=== PATIENT | female | born 1945 | race Caucasian/White ===

== ENCOUNTER 2019-04-29 16:10 | Inpatient (IN) | payer MEDICARE, MEDICAID ==
[2019-04-29] MEDS ORDERED: ARICEPT10 M1 PO (17:00)
[2019-04-29] MEDS ORDERED: MULTIVITAMINS1 EAC5 PO (17:01)
[2019-04-29] MEDS ORDERED: REMERON30 M1 PO (17:02)
[2019-04-29] MEDS ORDERED: MINIPRESS1 MG PO (17:02)
[2019-04-29] MEDS ORDERED: ATENOLOL25 MG PO (17:03)
[2019-04-29] MEDS ORDERED: ELIQUIS5 M1 PO (17:06)
[2019-04-29] MEDS ORDERED: AMARYL2 MG PO (17:08)
[2019-04-29] MEDS ORDERED: LACTULOSE20 GM/30 M PO (17:10)
[2019-04-29] MEDS ORDERED: METFORMIN HYDR500 MG PO (17:11)
[2019-04-29] MEDS ORDERED: DEPAKOTE SPRIN125 MG PO (17:13)
[2019-04-29] MEDS ORDERED: SENNA8.6 MG PO (17:13)
--- NOTE | 2019-04-30 02:15 | NUR ---
GORDONERIS AG a 73 year old F admitted via stretcher from the ADMITTING as a voluntary admission. Arrived on unit at 0215. ALLERGIES: IODINE,BUSPAR,SULFA,HONEY. Vital signs are: [id number] 129/61. The client signed the following forms with stated understanding: Authorization For The Release of Medical Information, Clothing List, Consent to Voluntary Admission and Hospitalization, Consent and Release Forms/Receipt of Rights, Acknowledgement of Advance Directive Information, Behavioral Health Consent Form, and Informed Consent of Medications. Admitted under the services of Dr. OPHELIA BARBER,[facility]. A search was conducted and hazardous articles were removed. Client was oriented to the unit. Patient has ecchymotic area to lt buttock and abrasion to lt outer leg. aware. SHAMIKA VALLEJO
[2019-04-30 02:22] VITALS: BP 129/61
--- NOTE | 2019-04-30 02:31 | NUR ---
DR GAONA UPDATED AND PATIENT PLACED UNDER DR CARTER FOR MEDICAL MANAGEMENT
--- NOTE | 2019-04-30 02:50 | NUR ---
DR GRISSOM ON UNIT TO SEE PATIENT
[2019-04-30 03:43] VITALS: BP 129/61
--- NOTE | 2019-04-30 06:33 | NUR ---
Patient slept approx. 1 1/2 hours throughout shift. Q 15 minute safety checks continued and maintained.
[2019-04-30 07:19] LABS: BUN 18 mg/dl (7-24); CHLORIDE 106 mmol/L (98-107); CHOLESTEROL 146 mg/dL (<200); CREATININE 0.91 mg/dL (0.55-1.02); HDL CHOLESTEROL 27 mg/dl (40-60); LDL CHOLESTEROL 100 mg/dL (9-159); POTASSIUM 3.6 mmol/L (3.5-5.1); SGOT/AST 14 IU/L (3-35); SGPT/ALT 11 U/L (12-78); SODIUM 138 mmol/L (136-145); TOTAL PROTEIN 7.3 gm/dL (6.4-8.2); TRIGLYCERIDES 96 mg/dl (<150); VLDL CHOLESTEROL 19 mg/dL (6-40)
[2019-04-30 07:26] LABS: ALKALINE PHOSPHATASE 50 U/L (45-117); THYROID STIM HORMONE (HS) 0.988 uIU/ml (0.358-4.75)
[2019-04-30 07:33] LABS: VITAMIN D, 25-HYDROXY 37.2 ng/mL (30-100)
[2019-04-30 07:39] LABS: ACT PARTIAL THROMBO TIME 28.7 SECONDS (20.0-32.1)
[2019-04-30 08:32] VITALS: BP 113/66
--- NOTE | 2019-04-30 11:55 | NUR ---
AM/EXERCISE/REMINISCE/ART PT ATTENDED AND PARTICIPATED TO BEST OF ABILITY. PT TRIED TO COLOR BUT STATES "I JUST CAN'T GET INTO LIKE I USED TO". PT DID NOT EXPRESS ANY S.I. AT THIS TIME AND WILL CONTINUE TO ATTEND AN DPARTICIPATE TO BEST OF PT ABILITY IN FUTURE GROUP SESSIONS.
--- NOTE | 2019-04-30 12:45 | NUR ---
JANA MCGREGOR UPDATED ON PT ADMISSION STATUS.
--- NOTE | 2019-04-30 13:03 | NUR ---
psychosocial hx completed this date.
--- NOTE | 2019-04-30 16:00 | NUR ---
PM/GAMES/MUSIC PT ATTENDED AND PARTICIPATED IN GROUP. PT PLEASNAT AND ON TASK BUT EXPRESSING CONFUSION WHEN RECORDING GAME SCORE. PT DID NOT EXPRESS ANY S.I AT THIS TIME AND WILL CONTINUE TO ATTEND AND PARTICIPATE IN FUTURE RGOUP SESSIONS.
--- NOTE | 2019-04-30 16:19 | NUR ---
SOME INTERMITTENT CONFUSION. PT ALERT, ORIENTED TO PERSON, PLACE AND APPROXIMATE TO TIME. PT COULD NOT REMEMBER WHEN IN IT WAS, BUT COULD ACCURATELY STATE YEAR AND PRESIDENT. REORIENTED. PT DENIES SI/HI. RECEPTIVE TO ORIENTATION, STATING "WOW, IT IS HARD TO BELIEVE IT IS THE END OF ALREADY. TIME FLIES". WILL CONTINUE TO REORIENT APPROPRIATE. WILL CONTINUE TO ENCOURAGE PARTICIPATION IN GROUP THERAPY/ACTIVITY FOR SOCIALIZATION AND SUPPORT. Q15 MIN MONITORING PER POLICY.
[2019-04-30 19:53] VITALS: BP 113/70
--- NOTE | 2019-04-30 23:47 | NUR ---
P-CONFUSION I-REDIRECTION WITH 1:1 THERAPEUTIC INTERVENTIONS AND PRESENT REALITY. EDUCATE AND ENCOURAGE MEDICATION COMPLIANCE R-PATIENT TIRED AND ISOLATED IN ROOM. PATIENT PROVIDED FLUIDS AT HS, BUT REFUSED NOURISHMENT AT HS. PATIENT DENIES SUCIDAL AND HOMICIDAL IDEATIONS. PATIENT DENIES HALLUINATIONS OR DELUSIONS. PATIENT MEDICATION COMPLIANT P-CONTINUE TO ENCOURAGE MEDICATION COMPLIANCE, CONTINUE TO PRESENT REALITY, CONTINUE TO ENCOURAGE GROUP THERAPY WHILE AWAKE
--- NOTE | 2019-05-01 00:44 | NUR ---
24 HR chart check completed.
--- NOTE | 2019-05-01 06:14 | NUR ---
PATIENT ACCUCHECK RESULT OF 53 THIS AM. PATIENT RECHECKED WITH ACCUCHECK RESULT OF 63 AFTER ORANGE JUICE. PATIENT WITH NO SIGNS OF SYMPTOMS OF DIABETIC IMBALANCE. PATIENT ATE A HALF OF TURKEY SANDWICH AND ACCU CHECK RESULT OF 77. DR OKEEFE UPDATED AND DIABETIC MEDICATIONS REVIEWED
--- NOTE | 2019-05-01 06:31 | NUR ---
PATIENT SLEPT 5 HOURS OF INTERRUPTED SLEEP THROUGHOUT SHIFT. Q 15 MINUTE CHECKS MAINTAINED
[2019-05-01 08:09] VITALS: BP 119/56
--- NOTE | 2019-05-01 09:54 | NUR ---
DR. UGARTE ON UNIT TO ASSESS PATIENT.
--- NOTE | 2019-05-01 12:14 | NUR ---
AM/BRAIN GAMES/MUSIC PT ATTENDED AND PARTICIPATED IN MUSIC [employer] BUT DID NOT PARTICIPATE IN BRAIN GAME. PT PLEASANT WITH NO S.I. OR AGGRESSION EXPRESSED AT THIS TIME. PT WILL CONTINUE TO ATTEND AND PARTICIPATE TO BEST OF ABILITY.
[2019-05-01 14:45] LABS: BILIRUBIN NEGATIVE (NEGATIVE); BLOOD NEGATIVE (NEGATIVE); CLARITY CLEAR (CLEAR); COLOR YELLOW (YELLOW); GLUCOSE NEGATIVE (NEGATIVE); KETONE NEGATIVE (NEGATIVE); LEUKO ESTERASE TRACE (NEGATIVE); NITRITE NEGATIVE (NEGATIVE); UROBILINOGEN 0.2 E.U./dl (0.2-1.0)
--- NOTE | 2019-05-01 16:03 | NUR ---
PATIENT IS ALERT AND ORIENT TO PERSON, PLACE, TIME AND SITUATION; ABLE TO VOICE NEEDS. MOOD IS STABLE, PLEASANT DEMEANOR. DENIES ANY HALLUCINATIONS, DELUSIONS, HI/SI OR PAIN. NO RESPONSE TO INTERNALS STIMULI. 1 PERSON ASSIST WITH ACTIVITIES OF DAILY LIVING, CONTINENT OF BOWEL AND BLADDER, SET UP FOR MEALS, INTAKES ARE GOOD WITH ENCOURAGEMENT TO DRINK MORE FLUIDS. Q 15 MINUTE SAFETY CHECKS. MEDICATION COMPLIANT. AMBULATES IN HALLWAY WITH STAFF ASSISTANCE, STEADY GAIT NOTED. CONTINUE TO MONITOR MOOD AND VOICED THOUGHT OF SUICIDAL IDEATION. PROVIDE ONE ON ONE FOR EMOTIONAL SUPPORT NEEDED.
--- NOTE | 2019-05-01 16:17 | NUR ---
Shift chart check completed.
[2019-05-01 19:33] VITALS: BP 143/55
--- NOTE | 2019-05-01 22:54 | NUR ---
PLEASENTLY CONFUSED. DIDN'T REMEMBER IF SHE NEEDED HELP TOILETING AND DRESSING. TOILETED AND CHANGED FOR BED. MEDICATION COMPLIANT AFTER REVIEWING MEDICATIONS WITH HER. ASSIST OF 1 TO GET OUT OF WHEELCHAIR INTO BED AND ONTO TOILET. WILL MONITOR FOR CHANGES IN BEHAVIOR OR MOOD
--- NOTE | 2019-05-01 23:45 | NUR ---
SHORT TERM MEMORY DEFICITS NOTED. HAS RUNG OUT 3 TIMES IN THE LAST 25 MINUTES TO VOID. SHE JUST VOID LARGE AMOUNT 25 MINUTES AGO. THINKS SHE WAS GIVEN OVERDOSE OF INSULIN THAT IS MAKING HER VOID. REIFORCED SHE GOT NOT INSULIN TONIGHT. WILL CONTINUE TO MONITOR
--- NOTE | 2019-05-02 04:29 | NUR ---
24 HR chart check completed.
--- NOTE | 2019-05-02 04:30 | NUR ---
INTERUPTED SLEEP. PREOCCUPITED WITH TOILETING. CONTINUEING TO PROVIDE EMOTIONAL SUPPORT
--- NOTE | 2019-05-02 06:00 | NUR ---
CURRENTLY UP SLEEPING IN WHEELCHAIR IN DININGROOM.
[2019-05-02 07:09] LABS: HEMATOCRIT 37.5 % (37.0-47.0); HEMOGLOBIN 11.9 g/dl (12.0-16.0); MEAN CELL VOLUME 110.9 fl (81.0-99.0); MEAN CORPUSCULAR HGB 35.2 pg (27.0-31.0); MEAN CORPUSCULAR HGB CONC 31.7 g/dl (33.0-37.0); MEAN PLATELET VOLUME 12.9 fl (9.6-12.3); NUCLEATED RED BLOOD CELL 0.1 % (0.0-0.0); PLATELET COUNT AUTOMATED 94 10*3/uL (130-400); RED BLOOD COUNT 3.38 10*6/uL (4.10-5.10); RED CELL DISTRI WIDTH 16.9 % (0-14.5); WHITE BLOOD COUNT 26.9 10*3/uL (4.8-10.8)
[2019-05-02 07:40] LABS: ALBUMIN 2.9 gm/dl (3.1-4.5); ALKALINE PHOSPHATASE 56 U/L (45-117); BUN 18 mg/dl (7-24); CHLORIDE 106 mmol/L (98-107); CREATININE 1.06 mg/dL (0.55-1.02); POTASSIUM 4.1 mmol/L (3.5-5.1); SGOT/AST 15 IU/L (3-35); SGPT/ALT 9 U/L (12-78); SODIUM 139 mmol/L (136-145); TOTAL PROTEIN 7.4 gm/dL (6.4-8.2)
[2019-05-02 08:10] VITALS: BP 129/69
[2019-05-02 08:32] LABS: TOTAL CELLS COUNTED 100 #CELLS
[2019-05-02 08:33] LABS: OVALOCYTES FEW; PLATELET SUFFICIENCY LOW (NORMAL); POLYCHROMASIA SLIGHT; SCHISTOCYTES FEW
--- NOTE | 2019-05-02 09:00 | NUR ---
DR. SAUNDERS NOTIFIED OF PATIENT'S ABNORMAL LABS, LUNGS-CLEAR, NO COMPLAINTS OF BURNING OF URINATION OR FREQUENCY. ASYMPTOMATIC.
--- NOTE | 2019-05-02 11:39 | NUR ---
AM GROUP PT WAS PRESENT FOR MORNING GROUP THERAPY BUT CHOSE NOT TO PARTICIPATE STATING, "I AM WAITING FOR THEM TO TELL ME WHEN I CAN GO BACK TO BED." PT SAT IN WHEELCHAIR IN THE MIDDLE OF THE ROOM AND SLEPT.
[2019-05-02 13:22] LABS: BILIRUBIN NEGATIVE (NEGATIVE); BLOOD NEGATIVE (NEGATIVE); CLARITY CLEAR (CLEAR); COLOR YELLOW (YELLOW); GLUCOSE TRACE (NEGATIVE); KETONE NEGATIVE (NEGATIVE); LEUKO ESTERASE NEGATIVE (NEGATIVE); NITRITE NEGATIVE (NEGATIVE); PH 5.5 (5.0-9.0); UROBILINOGEN 0.2 E.U./dl (0.2-1.0)
--- NOTE | 2019-05-02 14:49 | NUR ---
PATIENT IS ALERT TO PERSON, PLACE, TIME AND SITUATION. MOOD IS STABLE; DENIES ANY HALLUCINATIONS, DELUSIONS, HI/SI OR PAIN. INTERACTIVE WITH STAFF; PARTICIPATED IN GROUP SESSION THIS MORNING, TOOK AFTERNOON NAP. 1 PERSON ASSIST WITH ACTIVITIES OF DAILY LIVING, CONTINENT OF BOWEL AND BLADDER. SET UP FOR MEALS, INTAKES ARE GOOD WITH ADEQUATE FLUIDS. UP IN WHEELCHAIR; SELF PROPELS ON UNIT. Q 15 MINUTE SAFETY CHECKS MAINTAINED. MEDICATION COMPLAINT WITH EDUCATION PROVIDED. CONTINUE TO MONITOR VOICE SUICIDAL IDEATION, PROVIDE ONE ON ONE EMOTIONAL SUPPORT; CONTRACT FOR SAFETY.
--- NOTE | 2019-05-02 15:48 | NUR ---
PM GROUP PT WAS PRESENT FOR THE END OF GROUP AND WORKED ON A Map[employer]. PT EXPRESSED NO SUICIDAL IDEATIONS WHILE IN GROUP.
[2019-05-02 19:31] VITALS: BP 133/75
--- NOTE | 2019-05-02 20:37 | NUR ---
EVENING/LEISURE SKILLS PT ATTENDED AND PARTICIPATED TO BEST OF ABILITY. PT WILL DO A LITTLE AT A TIME WITH CRAFTS AND THEN OBSERVE AND SOCIALIZE THE REMAINDER OF THE TIME. PT DID NOT EXPRESS ANY S.I. OR AGGRESSION AT THIS TIME. PT WILL CONTINUE TO ATTEND AND PARTICIPATE TO BEST OF PT ABILITY.
--- NOTE | 2019-05-02 22:08 | NUR ---
UP FOR SNACK. REMAINS PREOCCUPIED BY HER URINE. REASSURED HER THAT IT WAS CHECKED CHECKED TODAY AND IT IS FINE. ATE SNACK. SHE THEN WENT TO BED EARLY. MEDICATION TAKEN TO HER ROOM AND REVIEWED EACH ONE. WILL MONITOR CHEEKS THEY ARE FLUSHED BUT NO FEVER. SEE ASSESSMENT FOR FURTHER INFORMATION. WILL MONITOR FOR CHANGES IN MOOD AND BEHAVIOR
--- NOTE | 2019-05-03 02:33 | NUR ---
24 HR chart check completed.
--- NOTE | 2019-05-03 05:51 | NUR ---
SLEPT WELL PAST 2300PM. MINIMAL INTERUPTIONS. MOVES SELF AROUND IN BED
[2019-05-03 06:30] LABS: HEMATOCRIT 32.6 % (37.0-47.0); HEMOGLOBIN 10.5 g/dl (12.0-16.0); MEAN CELL VOLUME 110.1 fl (81.0-99.0); MEAN CORPUSCULAR HGB 35.5 pg (27.0-31.0); MEAN CORPUSCULAR HGB CONC 32.2 g/dl (33.0-37.0); MEAN PLATELET VOLUME 13.1 fl (9.6-12.3); NUCLEATED RED BLOOD CELL 0.1 % (0.0-0.0); PLATELET COUNT AUTOMATED 90 10*3/uL (130-400); RED BLOOD COUNT 2.96 10*6/uL (4.10-5.10); RED CELL DISTRI WIDTH 16.8 % (0-14.5); WHITE BLOOD COUNT 29.4 10*3/uL (4.8-10.8)
[2019-05-03 07:43] VITALS: BP 108/67
[2019-05-03 08:00] LABS: PLATELET SUFFICIENCY LOW (NORMAL); TOTAL CELLS COUNTED 100 #CELLS
--- NOTE | 2019-05-03 08:00 | NUR ---
Treatment Plan meeting with Dr. Thibodeaux, RN, AT, SW and Cable Assembler. Plan for discharge next week. Pt. will return to [facility].
--- NOTE | 2019-05-03 09:45 | NUR ---
ADDIS MASTERSON CNP AND DR. ALATORRE NOTIFIED OF LABS, UA AND CHEST X RAY RESULTS.
--- NOTE | 2019-05-03 10:00 | NUR ---
DR. ALATORRE ON UNIT TO ASSESS PATIENT.
--- NOTE | 2019-05-03 11:36 | NUR ---
AM GROUP PT WAS PRESENT FOR MORNING GROUP THERAPY BUT CHOSE NOT TO PARTICIPATE STATING, "I'M TIRED AND WANT TO GO TO BED." PT EXPRESSED NO SUICIDAL IDEATIONS WHILE IN GROUP
--- NOTE | 2019-05-03 11:43 | NUR ---
PHYSICAL THERAPY Physical therapy evaluation completed. Full details and evaluation to follow. Low complexity skilled PT evaluation performed (56547). PT will work on strength, transfers, gait, balance, and safety per POC. Recommend SNF upon discharge. Thank you, Jyoti Mar,SPT Isabela Irizarry,PT,DPT
--- NOTE | 2019-05-03 11:56 | NUR ---
DR. BROWN NOTIFIED REGARDING PATIENT'S BLOOD WORK AT FACILITY. PATIENT HAS THROMBOCYTOPENIA. PER NURSE AT [facility], PATIENT SEE A WEB PRESS JOGGER. DR. ALATORRE TO BE UPDATED.
--- NOTE | 2019-05-03 13:31 | NUR ---
Occupational Therapy evaluation completed on 3 with full eval to follow. Precautions include 3N unit precautions, fall risk, assist with ADLs and transfers, impaired cognition,moderate complexity level 15951 via chart review, testing and evaluation. Recommend OT per POC and [facility] to [facility] w/ continued OT services. Thank you. Lea Raymundo OTR/L
--- NOTE | 2019-05-03 19:31 | NUR ---
PATIENT IS ALERT TO PERSON, PLACE, TIME AND SITUATION; ABLE TO VOICE NEEDS. MOOD IS STABLE. PREOCCUPIED WITH BEING THE SICKEST PATIENT ON UNIT. DENIES ANY HALLUCINATIONS, DELUSIONS, HI/SI OR PAIN. MEDICATION COMPLIANT. Q 15 MINUTE SAFETY CHECKS MAINTAINED. 1 PERSON ASSIST WITH ACTIVITIES OF DAILY LIVING, CONTINENT OF BOWEL AND BLADDER. SET UP FOR MEALS, INTAKES ARE GOOD WITH ADEQUATE FLUIDS. CONTINUE TO MONITOR FOR VOICE SI, PROVIDE ONE ON ONE AND [place] NEEDED.
[2019-05-03 19:52] VITALS: BP 128/54
--- NOTE | 2019-05-03 20:38 | NUR ---
P--ANGRY IRRITABLE I--DURING MEDICATION PASS EXPLAINED ALL MEDICATIONS AND CLIENT BECAME IRRITABLE AND ARGUMENTATIVE ABOUT ELIQUIS. EXPLAINED POSSIABLE DANGERS OF STOPPING THIS MEDICATION. TRIED TO SUPPLY EDUCATION AND SUPPORT R--I WANT ELIQUIS STOPPED. I DON'T CARE WHAT COULD HAPPEN. STOP TRYING TO CONVINCE ME WHY YOU WANT ME TO TAKE IT. I WILL TELL MY DOCTOR. I AM NOT DUMB BUT I DON'T CARE P-CONTINUE EMOTIONAL SUPPORT AND MONITOR
--- NOTE | 2019-05-04 03:41 | NUR ---
24 HR chart check completed.
--- NOTE | 2019-05-04 06:20 | NUR ---
UP MOST OF NIGHT. CONFUSED. CHANGED MULTIPLE TIMES FOR INCONTINENCE OF URINE. CONFUSED TO REASON BEING HERE. REINFORCED REALITY
--- NOTE | 2019-05-04 07:20 | NUR ---
PHYSICAL THERAPY Patient seen this am for therapy visit and was sitting in activity room w/c at table upon therapist arrival. OT library media assistant was present for observation only during SCIENTIST IMMUNOLOGY visit as patient voices no new c/o's at this time. Patient performs sit to stand transfer MIN A x 2 and ambulates with use of wh walker, 30'x 1, CGA, demonstrating decreased stride / cautious gait patten. Patient also needed v/c for proper hand placement during transfers to improve safety and returned to w/c in activity room with increased fatigue following therapy. Patient remained in w/c at table awaiting breakfast under [facility] staff Supervision. Will continue per POC as tolerated, total treatment time 14 minutes. Beau Turk, SCIENTIST IMMUNOLOGY
--- NOTE | 2019-05-04 07:45 | NUR ---
OT NOTE Pt was seen this A.M. 1:1 for 15 minute OT session with PHARMACY INFORMATICIST and nursing staff present for observation only. Upon arrival pt was sitting upright in the w/c in the dining room. Pt identified by name and and had no complaints at this time. Pt was educated on w/c mobility attempting with clock method and pt was unable to process. Pt was then educated with other methods and visual demonstration and pt had good carry over. Pt completed w/c mobility into the hallway with Gumaro for occasional verbal and tactile prompts for proper brake use and turning. Pt then completed multiple sit to stand transfers from the chair with Gumaro X 2 and use of w/w for UE support. Challenged pt's static standing tolerance needed for increased I in self care tasks and functional transfers, pt was able to tolerate aprox 2-3 minutes at a time before sitting due to fatigue. Pt was left sitting upright in the w/c in the dining room under [facility] staff supervision. Continue with rec D/C plan to return to long term and continued OT. NELDA Montejo/Shannan
[2019-05-04 07:49] VITALS: BP 114/85
--- NOTE | 2019-05-04 08:00 | NUR ---
Treatment Plan meeting with Dr. Thibodeaux, RN, AT, SW and Training Director. Plan for discharge Next week. Pt. to return to [facility].
[2019-05-04 10:56] LABS: HEMATOCRIT 33.7 % (37.0-47.0); HEMOGLOBIN 10.6 g/dl (12.0-16.0); MEAN CELL VOLUME 112.3 fl (81.0-99.0); MEAN CORPUSCULAR HGB 35.3 pg (27.0-31.0); MEAN CORPUSCULAR HGB CONC 31.5 g/dl (33.0-37.0); MEAN PLATELET VOLUME 13.2 fl (9.6-12.3); NUCLEATED RED BLOOD CELL 0.1 % (0.0-0.0); PLATELET COUNT AUTOMATED 105 10*3/uL (130-400); RED CELL DISTRI WIDTH 16.9 % (0-14.5); WHITE BLOOD COUNT 30.9 10*3/uL (4.8-10.8)
[2019-05-04 11:21] LABS: PLATELET SUFFICIENCY LOW (NORMAL); POLYCHROMASIA SLIGHT; TOTAL CELLS COUNTED 100 #CELLS
--- NOTE | 2019-05-04 11:47 | NUR ---
AM GROUP/LEISURE INTERESTS PT ATTENDED MORNING GROUP THERAPY BUT REFUSED ANY ACTIVITY OFFERED. PT SAT IN WHEELCHAIR WITH HEAD DOWN NAPPING THE ENTIRE GROUP
--- NOTE | 2019-05-04 15:17 | NUR ---
PT INTERACTIVE WITH PEERS TODAY, REQUESTED TO GO TO THE BATHROOM WITH RESULTS SEVERAL TIMES. PT MEDICATION COMPLIANT WITH NO MOODS OR BEHAVIORS NOTED TODAY. AT THIS TIME. PT IS IN GROUP ACTIVITIES. LAUGHED AND JOKED WITH THIS NURSE OVER MUSIC. MIS MASTERSON AWARE OF LAB WORK. CONTINUE TO MONITOR 15 MIN CHECKS, NO SI/HI OR DELUSIONS NOTED
--- NOTE | 2019-05-04 15:41 | NUR ---
PM GROUP PT WAS PRESENT FOR AFTERNOON GROUP THERAPY BUT CHOOSES NOT TO DO ANY OFFERED ACTIVITY. PT IS CONTENT TO SOCIALIZE OR NAP.
[2019-05-04 19:03] VITALS: BP 122/57
--- NOTE | 2019-05-04 22:08 | NUR ---
Patient alert and oriented x 3. Patient in dining room interacting with other patients befor,during and after snacks. No signs of any hallucinations noted at this time. Patient laughing,pleasant and very cooperative. Patient is compliant with medications without any difficulty. Plan to continue to encorage medication compliance and continue to encourage more interaction with staff and other patients. Q 15 minute safety checks continued and maintained. See [facility] flowsheet for futher documentation.
--- NOTE | 2019-05-05 00:09 | NUR ---
24 HR chart check completed.
--- NOTE | 2019-05-05 05:19 | NUR ---
Patient slept approx. 3 hours throughout shift. Q 15 minute safety checks continued and maintained.
[2019-05-05 06:38] LABS: MEAN CELL VOLUME 112.9 fl (81.0-99.0); MEAN CORPUSCULAR HGB 35.5 pg (27.0-31.0); MEAN CORPUSCULAR HGB CONC 31.4 g/dl (33.0-37.0); NUCLEATED RED BLOOD CELL 0.1 % (0.0-0.0); RED CELL DISTRI WIDTH 16.6 % (0-14.5); WHITE BLOOD COUNT 32.9 10*3/uL (4.8-10.8)
[2019-05-05 06:44] LABS: MEAN PLATELET VOLUME 13.1 fl (9.6-12.3); PLATELET COUNT AUTOMATED 111 10*3/uL (130-400)
[2019-05-05 07:13] LABS: PLATELET SUFFICIENCY LOW (NORMAL); TOTAL CELLS COUNTED 100 #CELLS
--- NOTE | 2019-05-05 07:25 | NUR ---
PHYSICAL THERAPY Patient seen this am for therapy visit and was sitting up in activity room w/c upon therapist arrival. Patient identified by name / and was very pleasant this morning. Patient transfers sit to stand MIN A and ambulates with use of wh walker, 20'x 1 from hallway to bathroom, CGA, demonstrating very slow gonzalez and decreased stride. Patient ambulated additional 40'x 1, with episode of R knee buckle x 2 > 30 feet secondary to prolonged standing activity. Patient returned to w/c in activity room and remained at table awaiting breakfast under [facility] staff Supervision. Will continue per POC as tolerated, total treatment time 16 minutes. Beau Turk, MEDICAL CODING SPECIALIST
[2019-05-05 07:29] VITALS: BP 134/71
--- NOTE | 2019-05-05 07:30 | NUR ---
OT NOTE Pt was seen this A.M. 1:1 for 15 minute OT session with RESIDENT HALL DIRECTOR and nursing staff present for observation only. Upon arrival pt was sitting upright in the w/c in the dining room. Pt identified by name and and had complaints of R knee pain which she did not rate on 0-10 pain scale. Pt completed w/c mobility into the dining room with Gumaro due to occasional assist with tight turns increasing risk of running hand into the linn/doors. Pt completed functional mobility into the bathroom with CGA and use of w/w for UE support. There she transferred on/off standard commode with Gumaro due to poor safety with alignment and low surface. Pt then stood sink side while washing her hands with Gumaro due to presenting with retrograde posture when standing without UE support. Functional mobility completed back to the w/c with two episodes of R knee buckling that required Gumaro to correct. Pt was left sitting upright in the w/c in the dining room under [facility] staff supervision. Continue with rec D/C plan to return to assisted with continued OT. NELDA Montejo/Shannan
--- NOTE | 2019-05-05 09:30 | NUR ---
Per Nurse on [facility] Dr. Thibodeaux plans for patient to discharge on Thursday with return to [facility].
--- NOTE | 2019-05-05 11:46 | NUR ---
AM GROUP PT ATTENDED MORNING GROUP THERAPY AND PARTICIPATED BY SOCIALIZING WITH THIS FOOD QUALITY TECHNICIAN AND NURSING STUDENTS. PT EXHIBITED NO AGITATION OR AGGRESSION WHILE IN GROUP NOR EXPRESSED ANY SUICIDAL IDEATIONS.
--- NOTE | 2019-05-05 12:52 | NUR ---
Spoke with Danna Worrell at [facility] for [facility]. Notified of concerns with Lab work expressed by Physicians here at [facility] and Pt. may require follow up sooner than her previously scheduled appointment with Oncology May 31. Danna will reach out to MEJIA Angeles at facility and make arrangements.
--- NOTE | 2019-05-05 15:53 | NUR ---
PHYSICAL THERAPY CO-SIGN I approve of the Physical Therapy notes written above. DARI CRAFT PT,DPT
[2019-05-05 19:19] VITALS: BP 128/62
--- NOTE | 2019-05-05 21:23 | NUR ---
Patient alert and oriented x 3. Patient in dining room interacting with other patients before,during and after snacks. No signs of any hallucinations noted at this time. Patient laughing,pleasant and very cooperative. Patient is compliant with medications without any difficulty. Plan to continue to encorage medication compliance and continue to encourage more interaction with staff and other patients. Q 15 minute safety checks continued and maintained. See [facility] flowsheet for futher documentation.
--- NOTE | 2019-05-06 00:26 | NUR ---
24 HR chart check completed.
--- NOTE | 2019-05-06 05:34 | NUR ---
Patient slept approx. 8 hours throughout shift. Q 15 minute safety checks continued and maintained.
--- NOTE | 2019-05-06 07:25 | NUR ---
PHYSICAL THERAPY Patient seen this am for therapy visit and was sitting up in activity room w/c upon therapist arrival. Patient identified by name / and was very pleasant this morning. OT orthodontist assistant was also present for observation only during OUTDOOR LANDSCAPE ARCHITECT visit as patient transfers sit to stand MIN A. requiring v/c for proper hand placement and improve transfer technique to prevent retropulsive behaviour. Patient ambulates with use of wh walker, 60'x 1, CGA, demonstrating slow gonzalez and good upright posture. Patient still unsteady during all turns and returned to w/c in activity room awaiting breakfast under [facility] staff Supervision. Will continue per POC as tolerated, total treatment time 14 minutes. Beau Turk, OUTDOOR LANDSCAPE ARCHITECT
--- NOTE | 2019-05-06 07:35 | NUR ---
OT NOTE Pt was seen this A.M. 1:1 for 20 minute OT session with NOTE SPECIALIST and nursing staff present for observation only. Upon arrival pt was sitting upright in the w/c in the dining room. Pt identified by name and and had no complaints at this time. Pt completed w.c mobility around the dining room into the hallway with Gumaro due to poor safety awareness around doors and tight spaces. Pt also required verbal prompts for brake use. Sit to stand completed from chair level with Gumaro and use of w/w for UE support. Challenged pt's static standing tolerance needed for increased I in self care tasks and functional transfers, pt was able to tolerate aprox 5 minutes before sitting due to fatigue. Pt completed functional mobility to her bedroom and back with CGA and use of w/w for UE support. Pt did require min verbal prompts for walker safety and navigation. Pt was left sitting upright in the w/c in the dining room under [facility] staff supervision. Continue with rec D/ Cplan to return to assisted with continued OT. NELDA Oliveros/Shannan
[2019-05-06 08:00] VITALS: BP 114/51
--- NOTE | 2019-05-06 08:30 | NUR ---
Treatment Plan meeting with Dr. Thibodeaux, RN, AT, and Labor Mediator. Plan for discharge Thursday-Thursday. Pt. will return to [facility].
--- NOTE | 2019-05-06 09:43 | NUR ---
Spoke with Danna Worrell via telephone at [facility] for [facility], notified of plans to discharge Thursday-Thursday. Clinical Updates faxed to Facility.
--- NOTE | 2019-05-06 11:00 | NUR ---
ADDIS MASTERSON TROUBLE LOCATER ON UNIT TO ASSESS PT
--- NOTE | 2019-05-06 11:41 | NUR ---
PHYSICAL THERAPY CO-SIGN I approve of the Physical Therapy notes written above. DARI CRFAT PT, DPT
--- NOTE | 2019-05-06 11:43 | NUR ---
AM GROUP PT ATTENDED MORNING GROUP THERAPY AND PARTICIPATED BY LISTENING TO THE MUSIC AND SOCIALIZING WITH NURSING STUDENTS AND PEERS. PT EXHIBITED NO AGITATION OR AGGRESSION WHILE IN GROUP. PT WAS LAUGHING AND MAKING JOKES.
--- NOTE | 2019-05-06 15:25 | NUR ---
Pt pleasant with this mortgage underwriter during conversation. Observed pt interacting with a nursing unit coordinator. Pt spoke of movies that she enjoyed and of pets that she once had. Pt was appropriate in conversation, smiling as she shared with the student.
[2019-05-06 19:07] VITALS: BP 122/57
--- NOTE | 2019-05-06 21:32 | NUR ---
Patient alert and oriented x 3. Patient in dining room interacting with other patients before,during and after snacks. No signs of any hallucinations noted at this time. Patient laughing,pleasant and very cooperative. Patient is compliant with medications without any difficulty. Plan to continue to encorage medication compliance and continue to encourage more interaction with staff and other patients. Q 15 minute safety checks continued and maintained. See [facility] flowsheet for futher documentation.
--- NOTE | 2019-05-07 00:14 | NUR ---
24 HR chart check completed.
--- NOTE | 2019-05-07 05:26 | NUR ---
Patient slept approx. 5 1/2 hours throughout shift. Q 15 minute safety checks continued and maintained.
[2019-05-07 08:00] VITALS: BP 132/53
--- NOTE | 2019-05-07 08:19 | NUR ---
PT C/O DISCOMFORT TO BUTTOCKS WHILE UP IN CHAIR. NO AREAS OF CONCERN NOTED, ADDIS MASTERSON MADE AWARE, N.O. FOR SEAT CUSHION IN WHEELCHAIR.
--- NOTE | 2019-05-07 11:58 | NUR ---
AM/JOURNAL/LEISURE PT ATTENDED BUT CHOSE NOT TO PARTICIPATE. PT WANTED TO PLAY A GAME WITH NURSING STUDENTS PRIOR TO GROUP AND WAS UPSET THAST THIS STAFF BEGAN A DIFFERENT ACTIVITY. THIS STAFF OFFERED PT TO PLAY CARD GAME AFTER JOURNALING ACTIVITY BUT PT LOOKED IF SHE WAS SLEEPING. AFTER GROUP PT STATES "I WASN'T PRODUCTIVE AT ALL DURING GROUP, I WISH I WOULD HAVE DONE SOMETHING. I WAS LISTENING TO EVERYTHING" THIS STAFF EXPLAINS THAT THERE WILL BE AN AFTERNOON GROUP AND PT CAN MAKE UP FOR IT AND JOIN IN ON ACTIVITY'S. PT WILL ATTEND AND PARTICIPATE IN AFTERNOON GROUP TO BEST OF PT ABILITY.
[2019-05-07 12:46] LABS: BILIRUBIN 1+ (NEGATIVE); BLOOD NEGATIVE (NEGATIVE); CLARITY SL CLOUDY (CLEAR); COLOR YELLOW (YELLOW); GLUCOSE NEGATIVE (NEGATIVE); KETONE NEGATIVE (NEGATIVE); LEUKO ESTERASE NEGATIVE (NEGATIVE); NITRITE NEGATIVE (NEGATIVE); PH 6.5 (5.0-9.0); SPECIFIC GRAVITY 1.015 (1.005-1.030)
--- NOTE | 2019-05-07 12:55 | NUR ---
ERIS FROM [facility] IS ON UNIT TO ASSESS PT.
[2019-05-07 13:57] LABS: BACTERIA 1+; MUCOUS 1+
--- NOTE | 2019-05-07 15:30 | NUR ---
Patient resting quietly with no c/o discomfort. Respirations easy and regular. Vital signs stable. No overt distress. GIVENS,PEDRO LUIS
--- NOTE | 2019-05-07 15:56 | NUR ---
PM/MUSIC/LEISURE SKILLS PT ATTENDED AND PARTICIPATED TO BEST OF ABILITY. PT ATTEMPTED TO PLAY SOLITAIRE BUT LOST INTEREST EASILY DUE TO BEING CONFUSED ON HOW TO PLAY. PT WOULD RANDOMLY MOVE HER FEET AROUND AND ASK "NOW WHAT AM I TRYING TO DO HERE?" THIS STAFF WOULD SAY I DON'T KNOW WHAT ARE YOU TRYING TO DO" PT WOULD LAUGH AND SAY "I'M REALLY NOT SURE". PT DID NOT BECOME AGGRESSIVE AT THIS TIME AND WILL CONTINUE TO BE ENCOURAGED OT ATTEND AND PARTICIPATE TO BEST OF ABILITY.
[2019-05-07 20:00] VITALS: BP 134/60
--- NOTE | 2019-05-08 01:01 | NUR ---
PT PLEASANT COOPERATIVE WITH MEDICATIONS, PT APOLOGIZED TO NURSE ABOUT BEHAVIOR PREVIOUS EVENING, STATING THAT SHE WAS DISRUPTIVE AND APOLOGIZED FOR DOING SO. AT THIS TIME PT RESTING IN BED QUIETLY
--- NOTE | 2019-05-08 05:53 | NUR ---
PT SLEPT 5 HOURS WITH INTERMITTENT AWAKENINGS SINCE 3AM
[2019-05-08 06:53] LABS: HEMATOCRIT 32.7 % (37.0-47.0); HEMOGLOBIN 10.2 g/dl (12.0-16.0); MEAN CELL VOLUME 112.4 fl (81.0-99.0); MEAN CORPUSCULAR HGB 35.1 pg (27.0-31.0); MEAN CORPUSCULAR HGB CONC 31.2 g/dl (33.0-37.0); MEAN PLATELET VOLUME 13.6 fl (9.6-12.3); NUCLEATED RED BLOOD CELL 0.1 % (0.0-0.0); PLATELET COUNT AUTOMATED 109 10*3/uL (130-400); RED BLOOD COUNT 2.91 10*6/uL (4.10-5.10); RED CELL DISTRI WIDTH 16.4 % (0-14.5); WHITE BLOOD COUNT 24.7 10*3/uL (4.8-10.8)
[2019-05-08 07:21] LABS: ALBUMIN 2.4 gm/dl (3.1-4.5); BUN 16 mg/dl (7-24); CHLORIDE 109 mmol/L (98-107); CREATININE 0.94 mg/dL (0.55-1.02); POTASSIUM 3.5 mmol/L (3.5-5.1); SGOT/AST 18 IU/L (3-35); SODIUM 141 mmol/L (136-145); TOTAL CELLS COUNTED 100 #CELLS
[2019-05-08 07:22] LABS: OVALOCYTES FEW; PLATELET SUFFICIENCY LOW (NORMAL); POLYCHROMASIA SLIGHT; SCHISTOCYTES FEW
[2019-05-08 07:25] LABS: ALKALINE PHOSPHATASE 47 U/L (45-117); SGPT/ALT 11 U/L (12-78); TOTAL PROTEIN 6.6 gm/dL (6.4-8.2)
[2019-05-08 07:56] VITALS: BP 113/63
--- NOTE | 2019-05-08 16:11 | NUR ---
Patient resting quietly with no c/o discomfort. Respirations easy and regular. Vital signs stable. No overt distress. GIVENS,PEDRO LUIS
[2019-05-08 20:30] VITALS: BP 108/62
--- NOTE | 2019-05-09 00:01 | NUR ---
PT PLEASANT THIS EVENING SMILING, INTERACTIVE WITH OTHER PEERS AND THIS NURSE, STATED THAT SHE HAS BEEN FEELING PRETTY GOOD. MEDICATION COMPLIANT WITH NO SI/HI, DELUSIONS OR NEGATIVE STATEMENTS NOTED. PT LAUGHING WITH THIS NURSE, REQUESTED TO RETURN TO BED AFTER MEDICATIONS WERE ADMINISTERED. PT CURRENTLY SLEEPING AT THIS TIME
--- NOTE | 2019-05-09 02:52 | NUR ---
PT AWAKING FROM SLEEP FREQUENTLY STATING "I AM WET" OR STATING " I THINK MY SUGAR WAS 88 LAST NIGHT" PT CHANGED AND CHECKED FREQUENTLY REDIRECTED BACK TO SLEEP
--- NOTE | 2019-05-09 03:34 | NUR ---
PT LEGS RESTLESS, CONTINUES TO AWAKEN FREQUENTLY, TYLENOL GIVEN FOR GENERAL DISCOMFORT AT THIS TIME.
--- NOTE | 2019-05-09 06:08 | NUR ---
PT SLEPT 3 HOURS STRAIGHT AND THEN BEGAN AWAKENING WITH INTERMITTENT SLEEP PERIODS IN BETWEENS , TOTAL OF 6.5 HOURS OF SLEEP
--- NOTE | 2019-05-09 07:20 | NUR ---
PHYSICAL THERAPY Patient seen this am for therapy visit and was sitting up in activity room w/c upon therapist arrival. OT assistant spa director was present for observation only during LIDAR ANALYST visit as patient was very pleasant, voicing no c/o's pain. Patient transfers sit to stand MIN A and ambulated with use of walker, 20'x 1 to bathroom, demonstrating very slow gonzalez. Patient ambulated additional 75'x 1 upon return to activity room, walker, CGA, demonstrating slow, cautious gait pattern and no LOB. Patient needed v/c for increaed stride and became a little confused at times with decreased focus on task. Patient remained in w/c at table in activity room awaiting breakfast, under [facility] staff Supervision. Will continue per POC as tolerated, total treatment time 16 minutes. Beau Turk, LIDAR ANALYST
[2019-05-09 07:49] VITALS: BP 142/67
--- NOTE | 2019-05-09 07:50 | NUR ---
OT NOTE Pt was seen this A.M. 1:1 for 18 minute OT session with TICKET COLLECTOR OR USHER and nursing staff present for observation only. Upon arrival pt was sitting upright in the w/c in the dining room. Pt identified by name and and had no complaints at this time. Pt completed w/c mobility around the room to her bedroom with SBA and one verbal prompt for proper brake use. Pt completed sit to stand from chair level with Gumaor and use of w/w followed by functional mobility into the bathroom with CGA and use of w/w. There she transferred on/off standard commode with Gumaro due to low surface. Pt then stood sink side while washing her hands with CGA, pt had two retrograde LOB that required Gumaro to correct. Pt was left sitting upright in the w/c in the dining room under [facility] staff supervision. Continue with rec D/C plan [facility] with continued OT. NELDA Oliveros/Shannan
--- NOTE | 2019-05-09 08:15 | NUR ---
Treatment Plan meeting with Dr. Thibodeaux, RN, AT, and Naturopath. Plan for discharge Thursday. Pt. will return to [facility].
--- NOTE | 2019-05-09 12:19 | NUR ---
AM GROUP NO AM GROUP THERAPY DUE TO NEW PT ASSESSMENTS AND 1:1
--- NOTE | 2019-05-09 13:11 | NUR ---
NO ADVERSE MOODS OR BEHAVIORS NOTED THIS SHIFT. PT ALERT TO PERSON, PLACE AND TIME. PT MED COMPLIANT WITHOUT DIFFICULTY, MED EDUCATION PROVIDED. PT CALM, MOOD IS STABLE. PT PLEASANT AND COOPERATIVE WITH STAFF AND PEERS. PT DENIES ANY SUICIDAL THOUGHTS. NO HALLUCIANTIONS OR DELUSIONS NOTED. PT UP TO WHEELCHAIR REQUIRES 1 STAFF ASSIST FOR TANSFERS AND CARE. PT CONTINENT OF BOWEL AND BLADDER. PLAN IS TO MONITOR PT BEHAVIORS ON Q15 MIN SAFETY CHECKS, ENCOURAGE MED COMPLIANCE AND PROVIDE MED EDUCATION, PROVIDE EMOTIONAL SUPPORT AND 1:1 FOR PT TO VOICE FEELINGS, ENCOURAGE GROUP PARTICIPATION AND SOCIALIZATION.
--- NOTE | 2019-05-09 14:17 | NUR ---
ADDIS MASTERSON EMT I/85 ON UNIT TO ASSESS PT, UPDATE PROVIDED. ADDIS SPOKE WITH PT REGARDING ELEVATED WHITE BLOOD CELL COUNT AND NEEDING TO FOLLOW UP DR. ALMANZAR AFTER DISCHAGRE. PT VOICED UNDERSTANDING.
--- NOTE | 2019-05-09 15:59 | NUR ---
PM GROUP PT ATTENDED AFTERNOON GROUP THERAPY AND PARTICIPATED BY LISTENING TO MUSIC AND SOCIALIZING. PT EXIBITED NO AGGRESSION WHILE IN GROUP
[2019-05-09 19:42] VITALS: BP 119/67
--- NOTE | 2019-05-09 20:47 | NUR ---
EVENING/MUSIC TRIVIA/ART PT ATTENDED AND PARTICIPATED BY PLAYING MUSIC TRIVIA. PT PLEASNAT AND ON TASK WITH NO AGGRESSION OR S.I. EXPRESSED AT THIS TIME. PT WILL CONTINUE TO ATTEND AN DPARTICIPATE TO BEST OF PT ABILITY.
--- NOTE | 2019-05-09 21:48 | NUR ---
P--DELUSIONS, THOUGHTS OF AND DYING I--ASKED TO HAVE 1:1 WITH CLIENT TO TALK ABOUT THE DAYS EVENTS. CLIENT REFUSED SHE SAYS SHE IS FEELING GOOD AND GOING HOME TOMORROW. REVIEWED CURRENT MEDICATION REGIMINE. DISCUSSED HER THOUGHTS OF POSSIABLE CANCER. A&Ox3 R--OH I HAD A GOOD EXCEPT THEY THINK I HAVE CANCER. I AM NOT GETTING TREATMENT OR HAVE ANY MORE TEST. MY BROTHER DID THAT AND I REFUSE. I HOPE I GET TO GO HOME TOMORROW I AM READY. I DON'T NEED INSULIN P--MONITOR Q 15 MINUTES AND PRN FOR SAFETY. MONITOR FOR CHANGES IN BEHAVIOR/MOOD. BE AVAILABLE FOR EMOTIONAL SUPPORT AND SUPPORT
--- NOTE | 2019-05-10 05:42 | NUR ---
SLEPT LESS THAN 3 HOURS. MOVED SELF AROUND IN BED. NOT RESTLESS BUT NOT ABLE TO SLEEP.
[2019-05-10 07:48] VITALS: BP 107/61
--- NOTE | 2019-05-10 08:30 | NUR ---
Treatment Plan meeting with Dr. Thibodeaux, RN, AT, and Manager Clinic. Plan for discharge today. Pt. to return to [facility].
[2019-05-10] MEDS ORDERED: EXELON13.3 MG/21 T (09:22)
[2019-05-10] MEDS ORDERED: MEMANTINE HCL10 MG PO (09:22)
[2019-05-10] MEDS ORDERED: MINIPRESS2 M1 PO (09:22)
[2019-05-10] MEDS ORDERED: RISPERIDONE1 MG PO (09:22)
[2019-05-10] MEDS ORDERED: MIRTAZAPINE15 M2 PO (09:22)
[2019-05-10] MEDS ORDERED: RISPERIDONE0.5 MG PO (09:22)
[2019-05-10] MEDS ORDERED: ROZEREM8 MG PO (09:22)
--- NOTE | 2019-05-10 11:52 | NUR ---
AM GROUP/LESSONS FROM A TREE PT ATTENDED AND PARTICIPATED IN ALL GROUP ACTIVITIES. PT WAS A VITAL PART OF THE CONVERSATION AND THE GROUP DYNAMIC
--- NOTE | 2019-05-10 12:16 | NUR ---
PT ALERT TO PERSON, PLACE, TIME, AND SITUATION. STABLE MOOD. CALM AND INTERACTIVE. ORGANIZED THOUGHTS. DENIES SI/HI. VERBALLY CONTRACTED FOR SAFETY INCASE THOUGHTS ARISE. DENIES HALLUCINATIONS OR DELUSIONS. STEADY GAIT WITH ASSIST. 1 ASSIST WITH TRANSFERS AND TOILETING. CONTINENT. MEDICATION COMPLIANT WITHOUT DIFFICULTY. MED EDUCATION PROVIDED. VERBALIZED UNDERSTANDING. PLAN IS TO CONTINUE TO ENGAGE PT IN GROUP THERAPY. PROVIDE 1:1 FOR THERAPEUTIC COMMUNICATION. MONITOR BEHAVIORS WITH Q15 MINUTE SAFETY CHECKS. SEE [facility] FLOWSHEETS FOR SPECIFIC MONITORING.
--- NOTE | 2019-05-10 15:42 | NUR ---
PM GROUP/LEISURE INTERESTS PT ATTENDED AFTERNOON GROUP THERAPY AND PARTICIPATED BY SOCIALIZING WITH PEERS. PT IS AWAITING TRANSPORTATION PT IS BEING DISCHARGED TODAY
--- NOTE | 2019-05-10 16:05 | NUR ---
PT OFF UNIT TO RETURN TO [facility]. ACCOMPANIED BY 2 DYNAMOMETER TESTER ENGINE AND STROKE COORDINATOR. A&O X4. STABLE MOOD. VS STABLE. PT BELONGINGS CHECKED BY EMT'S AND SENT WITH THE PT.
--- NOTE | 2019-05-10 16:10 | NUR ---
Patient discharged today returning to [facility]. Follow-up will be with Dr Thibodeaux, visiting psychiatrist. Pt's mood improved while at [facility]. She participated in programming. Pt was pleasant and cooperative with staff and peers.
--- NOTE | 2019-05-11 16:11 | NUR ---
OCCUPATIONAL THERAPY CO-SIGN I approve of the Occupational Therapy notes written above. ADRIAN QUEVEDO OTR/Shannan
== END 2019-05-10 16:05 | DRG 885 ==
LOC: 3N 16:10
PROVIDERS: Family Medicine; Internal Medicine; Nurse Practitioner Women's Health; Registered Nurse; ADMIT Psychiatry & Neurology Psychiatry
DX: F33.2 Major depressive disorder, recurrent severe without psychotic features (principal); R45.851 Suicidal ideations; E44.0 Moderate protein-calorie malnutrition; D53.9 Nutritional anemia, unspecified; F43.10 Post-traumatic stress disorder, unspecified; F34.1 Dysthymic disorder; I48.91 Unspecified atrial fibrillation; I12.9 Hypertensive chronic kidney disease with stage 1 through stage 4 chronic kidney disease, or unspecified chronic kidney disease; E78.5 Hyperlipidemia, unspecified; N18.3 Chronic kidney disease, stage 3 (moderate); I25.10 Atherosclerotic heart disease of native coronary artery without angina pectoris; K21.9 Gastro-esophageal reflux disease without esophagitis; M62.81 Muscle weakness (generalized); D69.6 Thrombocytopenia, unspecified; M19.90 Unspecified osteoarthritis, unspecified site; G47.00 Insomnia, unspecified; K59.00 Constipation, unspecified; R26.2 Difficulty in walking, not elsewhere classified; R41.0 Disorientation, unspecified; R41.3 Other amnesia; D72.829 Elevated white blood cell count, unspecified; E11.22 Type 2 diabetes mellitus with diabetic chronic kidney disease; Z81.8 Family history of other mental and behavioral disorders; Z88.2 Allergy status to sulfonamides; Z88.8 Allergy status to other drugs, medicaments and biological substances; Z91.041 Radiographic dye allergy status; Z91.018 Allergy to other foods; Z79.899 Other long term (current) drug therapy

== ENCOUNTER 2019-09-08 14:06 | Inpatient (IN) | payer MEDICARE, MEDICAID ==
[~2019-09-08] VITALS: Ht 165.1 cm; Wt 56.4 kg
[~2019-09-08 14:06] MED LIST: AMARYL2 MG PO; ARICEPT10 M1 PO; ATENOLOL25 MG PO; DEPAKOTE SPRIN125 MG PO; ELIQUIS5 M1 PO; EXELON13.3 MG/21 T; LACTULOSE20 GM/30 M PO; MEMANTINE HCL10 MG PO; METFORMIN HYDR500 MG PO; MINIPRESS1 MG PO; MINIPRESS2 M1 PO; MIRTAZAPINE15 M2 PO; MULTIVITAMINS1 EAC5 PO; REMERON30 M1 PO; RISPERIDONE0.5 MG PO; RISPERIDONE1 MG PO; ROZEREM8 MG PO; SENNA8.6 MG PO
[2019-09-08] MEDS ORDERED: MINIPRESS2 M2 PO (14:27)
[2019-09-08] MEDS ORDERED: RIVASTIGMINE TAR6 M1 PO (14:32)
[2019-09-08] MEDS ORDERED: XIFAXAN550 MG PO (14:33)
--- NOTE | 2019-09-09 16:00 | NUR ---
ERIS GORDON a 74 year old F admitted via ambulance from the ADMITTING as a voluntary admission. Arrived on unit at 1600. ALLERGIES: SULFA, BUSPIRONE, HONEY, IODINE. Vital signs are: [id number] 152/61. The client signed the following forms with stated understanding: Authorization For The Release of Medical Information, Consent to Voluntary Admission and Hospitalization, Consent and Release Forms/Receipt of Rights, Acknowledgement of Advance Directive Information, Behavioral Health Consent Form, and Informed Consent of Medications. Admitted under the services of Dr. OPHELIA BARBERPAUL [facility] [facility]. A search was conducted and hazardous articles were removed. Client was oriented to the unit. MIKEY GARCIA PATIENT CLOTHING LIST SIGNED BY MENTAL HEALTH WORKER. PATIENT WITH NO WOUNDS ON ADMISSION. PATIENT WITH SCATTERED SCABS, ABRASIONS, AND ECCHYMOTIC AREAS TO BILATERAL UPPER AND LOWER EXTREMIES. PATIENT STAND HANDS ARE PAINFUL AT TIMES AND STIFF. PATIENT STATES "THEY THOUGHT I HAD CANCER WHEN I WAS HERE LAST, BUT I SEEN A DOCTOR AND HE SAID I WAS FINE". PATIENT DENIES SUICIDAL IDEATIONS AT THIS TIME AND VOICES NO PLAN OF SUICIDE AT THIS TIME
[2019-09-09 16:07] VITALS: BP 152/61
[2019-09-09 16:15] VITALS: BP 152/61
--- NOTE | 2019-09-09 16:23 | NUR ---
SPOKE WITH DR LOAIZA AT [phone] RE: CONSULT FOR MEDICAL MANAGEMENT PER DR LOAIZA PLACE CONSULT UNDER DR HAIRSTON.
--- NOTE | 2019-09-09 16:26 | NUR ---
SPOKE WITH JANA MCGREGOR AT [phone] RE: ADMISSION AND STATUS.
[2019-09-09 18:56] LABS: ALBUMIN 3.2 gm/dl (3.1-4.5); ALKALINE PHOSPHATASE 58 U/L (45-117); BUN 24 mg/dl (7-24); CHLORIDE 106 mmol/L (98-107); CREATININE 1.07 mg/dL (0.55-1.02); POTASSIUM 4.3 mmol/L (3.5-5.1); SGOT/AST 11 IU/L (3-35); SGPT/ALT 15 U/L (12-78); SODIUM 138 mmol/L (136-145)
[2019-09-09 19:03] LABS: HEMATOCRIT 38.7 % (37.0-47.0); HEMOGLOBIN 12.2 g/dl (12.0-16.0); MEAN CELL VOLUME 109.6 fl (81.0-99.0); MEAN CORPUSCULAR HGB 34.6 pg (27.0-31.0); MEAN CORPUSCULAR HGB CONC 31.5 g/dl (33.0-37.0); MEAN PLATELET VOLUME 13.9 fl (9.6-12.3); PLATELET COUNT AUTOMATED 90 10*3/uL (130-400); RED BLOOD COUNT 3.53 10*6/uL (4.10-5.10); RED CELL DISTRI WIDTH 16.1 % (0-14.5); WHITE BLOOD COUNT 10.4 10*3/uL (4.8-10.8)
[2019-09-09 19:32] VITALS: BP 132/72
[2019-09-09 19:41] LABS: PLATELET SUFFICIENCY LOW (NORMAL); TOTAL CELLS COUNTED 100 #CELLS
[2019-09-09 19:42] LABS: OVALOCYTES FEW; POLYCHROMASIA SLIGHT
--- NOTE | 2019-09-09 19:57 | NUR ---
24 HR chart check completed.
[2019-09-09 20:18] LABS: BILIRUBIN NEGATIVE (NEGATIVE); BLOOD NEGATIVE (NEGATIVE); CLARITY CLOUDY (CLEAR); COLOR YELLOW (YELLOW); GLUCOSE NEGATIVE (NEGATIVE); KETONE NEGATIVE (NEGATIVE); LEUKO ESTERASE 2+ (NEGATIVE); NITRITE NEGATIVE (NEGATIVE); UROBILINOGEN 0.2 E.U./dl (0.2-1.0)
[2019-09-09 20:26] LABS: BACTERIA 2+; TRIP PHOS CRYSTALS 3+; WBC 21-30 wbc/hpf (0-5)
--- NOTE | 2019-09-09 21:26 | NUR ---
DR ORTIZ NOTIFIED OF RESULTS OF UTI. STATED HE WILL LOOK AT RESULTS.
--- NOTE | 2019-09-09 23:38 | NUR ---
P-DEPRESSED I-PROVIDE EMOTIONAL SUPPORT, ENCOURAGE VENTILATION OF FEELINGS, ADMINISTED MEDICATIONS, MONITOR SLEEP, STARTED ON CEFTIN FOR UTI. R-MOOD MILDLY DEPRESSED. ALERT & ORIENTED X 4. PLEASANT & CO-OPERATIVE WITH STAFF. HAS SAT QUIETLY IN THE DINING ROOM LISTENING TO MUSIC WITH OTHER PEERS. DENIES SUICIDAL FEELINGS. STATED THAT SHE IS "FEELING BETTER NOW THAT I AM HERE. ITS GREAT TO BE AWAY FROM THAT PLACE FOR AWHILE." REFUSED SNACK. COMPLAINT WITH MEDICATIONS. MOVES ABOUT UNIT VIA WHEELCHAIR & HAS REQUIRED 1 STAFF ASSIST. CONTINENT & INCONTINENT OF URINE. P-CONTINUE TO MONITOR & PROVIDE PHYSICAL ASSISTANCE & EMOTIONAL SUPPORT
--- NOTE | 2019-09-10 05:58 | NUR ---
PT HAS SLEPT PAST 2199
[2019-09-10 07:04] LABS: CHOLESTEROL 111 mg/dL (<200); HDL CHOLESTEROL 28 mg/dl (40-60); LDL CHOLESTEROL 68 mg/dL (9-159); TRIGLYCERIDES 75 mg/dl (<150); VLDL CHOLESTEROL 15 mg/dL (6-40)
[2019-09-10 08:00] VITALS: BP 135/70
--- NOTE | 2019-09-10 12:10 | NUR ---
AM GROUP/EXERCISE/BINGO/CRAFT PT CHOSE NOT TO ATTEND AT THIS TIME, BUT TO TAKE A NAP. PT WILL CONITNUE TO BE ENOCURAGED TO ATTEND AN DPARTICIPATE IN FUTURE GROUP SESSIONS TO BEST OF ABILITY. PT ACTIVITY ASSESSMENT WILL BE COMPLETED TODAY.
--- NOTE | 2019-09-10 13:21 | NUR ---
PSYCHOSOCIAL HX COMPLETED THIS DATE.
--- NOTE | 2019-09-10 15:58 | NUR ---
PM GROUP/RIDDLES/CRAFT PT ATTENDED AN DPARTICIPATED IN ALL GROUP ACTIVITY. PT EXPRESSED NOP S.I. AT THIS TIME AND WILL CONTINUE TO ATTEND AND PARTICIPATE IN FUTURE GROUP SESSIONS TO THE BEST OF PT ABILITY.
--- NOTE | 2019-09-10 16:44 | NUR ---
PT DEMANDING, YELLING OUT PT REDIRECTED, OFFERED DIVERSIONAL ACTIVITY. PT WAS YELLING ABOUT BREAKFAST, C/O DISLIKE FOR BREAKFAST AND LUNCH TRAYS. STATES "FOOD WAS BETTER LAST TIME I WAS HERE". PT OFFERED ANOTHER BREAKFAST TRAY, WANTED TO ORDER WHAT WAS ON HER BREAKFAST TRAY. PT OFFERED ALTERNATIVES AND ACCEPTED THEM. PT ENCOURAGED TO ACCURATELY ORDER HER NEXT MEAL ACCORDING TO HER WISHES, IS EATING SUPPER TRAY WITHOUT COMPLAINT. MEDICATION COMPLIANT WITHOUT DIFFICULTY. WILL CONTINUE TO ENCOURAGE PT TO CALMLY VERBALIZE FEELINGS AND EXPRESS WANTS AND NEEDS TO STAFF. WILL CONTINUE TO ENCOURAGE MEDICATION COMPLIANCE. Q 15 MIN MONITORING PER POLICY FOR SAFETY.
[2019-09-10 20:00] VITALS: BP 140/70
--- NOTE | 2019-09-10 22:48 | NUR ---
P-DEPRESSED MOOD, ISOLATIVE I-REDIRECTION WITH 1:1 THERAPEUTIC INTERVENTIONS. CONTINUE TO EDUCATE AND ENCOURAGE MEDICATION COMPLIANCE R-PATIENT MEDICATION COMPLIANT. PATIENT ISOLATIVE AND WITHDRAWN IN QUIET AREA. PATIENT INTERACTING WITH STAFF THROUGHOUT SHIFT. PATIENT WITH NO SUICIDAL OR HOMICIDAL IDEATIONS. PATIENT WITH NO HALLUCINATIONS OR DELUSIONS. PATIENT STATED "MY DAY DID NOT START OUT VERY WELL. THE BREAKFAST AND LUNCH WERE NOT GOOD, BUT I LOVED THE DOUGHNUT AND ATE SOME OF MY CHICKEN TENDERS". PATIENT PROVIDED NOURSISHMENT AND FLUIDS AT HS. PATIENT CONTINUES OF CIPRO TO +UTI WITH NO ADVERSE AFFECTS. P-CONTINUE TO ENCOURAGE MEDICATION COMPLIANCE, ENCOURAGE GROUP THERAPY WHILE AWAKE
--- NOTE | 2019-09-11 05:51 | NUR ---
PATIENT SLEPT 7 HOURS OF INTERRUPTED SLEEP THROUGHOUT SHIFT. Q 15 MINUTE CHECKS MAINTAINED. 24 HR chart check completed.
[2019-09-11 08:00] VITALS: BP 126/63
[2019-09-11 15:03] LABS: HEMATOCRIT 36.8 % (37.0-47.0); HEMOGLOBIN 11.5 g/dl (12.0-16.0); MEAN CELL VOLUME 109.2 fl (81.0-99.0); MEAN CORPUSCULAR HGB 34.1 pg (27.0-31.0); MEAN CORPUSCULAR HGB CONC 31.3 g/dl (33.0-37.0); MEAN PLATELET VOLUME 13.3 fl (9.6-12.3); PLATELET COUNT AUTOMATED 94 10*3/uL (130-400); RED BLOOD COUNT 3.37 10*6/uL (4.10-5.10); RED CELL DISTRI WIDTH 15.8 % (0-14.5); WHITE BLOOD COUNT 8.9 10*3/uL (4.8-10.8)
[2019-09-11 15:18] LABS: BASO # 0.1 10*3/uL (0.0-0.1); BASO % 0.7 % (0.0-1.0); LYMPH # 2.2 10*3/uL (1.3-4.4); MONO # 1.4 10*3/uL (0.1-1.0); MONO % 15.5 % (3.0-9.0); NEUT # 4.2 10*3/uL (2.3-7.9); NEUT % 46.2 % (47.0-73.0)
[2019-09-11 15:29] LABS: TOTAL CELLS COUNTED 100 #CELLS
[2019-09-11 15:30] LABS: POLYCHROMASIA SLIGHT
--- NOTE | 2019-09-11 15:30 | NUR ---
DR. BAEZ MADE AWARE OF NEED FOR WOUND CARE ORDERS FOR STAGE 2 TO COCCYX, STAGED BY NURSING RENOVATOR MACHINE OPERATOR
[2019-09-11 15:31] LABS: OVALOCYTES FEW; PLATELET SUFFICIENCY LOW (NORMAL)
[2019-09-11 20:16] VITALS: BP 158/55
--- NOTE | 2019-09-12 01:17 | NUR ---
24 HR chart check completed.
--- NOTE | 2019-09-12 02:58 | NUR ---
P- DEPRESSED, ISOLATIVE I- ENCOURAGE 1:l REDIRECTION. EDUCATE AND ENCOURAGE MED COMPLIANCE R- REMAINS WITHDRANW AND ISOLATIVE. NO S/I H/I. NO HALLUCINATIONS. C/O FOOD NOT BEING GOOD. WANTS EGGS AND MONSON FOR BREAKFAST. PROVIDED WITH NOURISHMENT AND FLUIDS AT HS. CONTINUES ON CIPRO FOR UTI. P- ENCOURAGE MED COMPLIANCE AND VERBALIZATION OF FEELINGS.
--- NOTE | 2019-09-12 05:32 | NUR ---
PATIENT SLEPT OVER 8 HOURS LAST NIGHT.
--- NOTE | 2019-09-12 06:27 | NUR ---
EVANERIS Ariana [id number] Please refer to the physician's history and physical for past medical history, comorbid conditions, and allergies. Diagnosis: MAJOR DEPRESSION RECURRENT SEVERE Bennett Score: 15,AT RISK WOUND DESCRIPTIONS: Wound Number: 1 Location of the wound: Coccyx Type of wound: stage 2 Thickness: Partial Size: 1.5cm x 0.8cm x 0.1cm Tunneling: none Undermining: none Sinus Tract: none Presence of Exudate: Serosanguineous Amount: Light Color: Red Odor: None Periwound Skin Appearance: Normal Wound edges: approximated Pain (associated with wound): none at time of assessment How does patient state this happened? pt unable to state how this happened Surface the patient is resting on: Proform SKIN PREVENTION RECOMMENDATION: 1. Pressure redistribution support surface as appropriate 2. Elevate heels 3. Remove boots/TEDS every shift and reapply 4. Head of bed 30 degrees as tolerated 5. Assess nutrition and hydration 6. Manage moisture 7. Avoid the use of containment devices while in bed 8. Use absorptive products on surfaces limit layers of linens on bed 9. Turn and reposition every 1-2 hours in bed and every 1 hour in chair as tolerated 10. Weight shifts every 15 minutes while up in chair 11. Offloading with pillows or device to keep heels elevated off bed 12. Monitor skin at least every shift 13. Inspect under medical devices twice a day WOUND TREATMENT RECOMMENDATIONS: D/C skin tear guidelines Continue wheelchair cushion. Dressing change: Cleanse coccyx with soap and water and apply calazime every shift and prn for soiling.
[2019-09-12 07:58] VITALS: BP 108/61
--- NOTE | 2019-09-12 08:00 | NUR ---
Treatment Plan meeting was held with Dr. Thibodeaux, NISHA Lawrence, RN, AT, MEDICATION AIDE-S and Group Controller. Plan for discharge Next week. Pt. came to [facility] from [facility]. Will reach out to facility today to discuss Discharge Planning.
--- NOTE | 2019-09-12 08:01 | NUR ---
Occupational therapy orders and nursing screen received. Will follow up with patient. Thank you. Carole Saxena, OTR/L
--- NOTE | 2019-09-12 08:09 | NUR ---
PHYSICAL THERAPY Screen and PT eval received will follow thank you Amber Francisco PT
--- NOTE | 2019-09-12 11:05 | NUR ---
NURSE CARING FOR PATIENT NOTIFIED OF WOUND CARE RECOMMENDATIONS.
--- NOTE | 2019-09-12 11:56 | NUR ---
AM GROUP MORNING GROUP THERAPY WAS SHORTENED DUE TO PT 1:1. PT WAS PRESENT FOR MORNING GROUP THERAPY BUT CHOSE NOT TO PARTICIPATE STATING, "I FEEL LIKE YOU TOO ARE HAVING A PRIVATE CONVERSATION AND I'M NOT A PART OF IT" PT WAS ENCOURAGED SEVERAL TIMES TO JOIN IN THE DISCUSSION BUT REFUSED.
--- NOTE | 2019-09-12 13:40 | NUR ---
PHYSICAL THERAPY Dellanilesh completed moderate level of complexity 95100 full report to follow recomend return to facility with f/t PT/therapy as appopriate. Amber Francisco PT
--- NOTE | 2019-09-12 15:45 | NUR ---
PM GROUP PT DID NOT ATTEND AFTERNOON GROUP THERAPY. PT WAS IN BED RESTING.
--- NOTE | 2019-09-12 17:32 | NUR ---
NO ADVERSE MOODS OR BEHAVIORS NOTED THIS SHIFT. MEDICATION COMPLIANT WITHOUT DIFFICULTY. BEHAVIORS MONITORED WITH Q15 MINUTE SAFETY CHECKS. SEE [facility] FLOWSHEET FOR SPECIFIC MONITORING.
[2019-09-12 19:50] VITALS: BP 133/74
--- NOTE | 2019-09-12 20:09 | NUR ---
24 HR chart check completed.
--- NOTE | 2019-09-12 20:49 | NUR ---
EVENING/POSITIVE SELF-TALK PT IN ATTENDNACE AND PARTICIPATED IN DISCUSSION AND LISTENING TO MUSIC. PT PLEASANT WITH NO EXPRESSIONS OF S.I. PT SMILING AND LAUGHING WITH PEERS AT THIS TIME. PT WILL CONTINUE TO ATTEND AND PARTICIPATE IN FUTURE GROUP SESSIOSN TO BEST OF PT ABILITY.
--- NOTE | 2019-09-13 00:50 | NUR ---
P-MILD ANXIETY I-PROVIDE EMOTIONAL SUPPORT, ENCOURAGE VENTILATION OF FEELINGS, ADMINISTED MEDICATIONS, MONITOR SLEEP. R-MOOD MILDLY DEPRESSED WITH MILD ANXIETY. ALERT & ORIENTED X 4. PLEASANT & CO-OPERATIVE WITH STAFF. PARTICIPATED IN GROUP ACTIVITES & INTERACTED WITH PEERS. DENIES SUICIDAL FEELINGS. STATED SHE HAD A GOOD DAY. ATE SNACK. COMPLAINT WITH MEDICATIONS. MOVES ABOUT UNIT VIA WHEELCHAIR & HAS REQUIRED 1 STAFF ASSIST. INCONTINENT OF URINE. P-CONTINUE TO MONITOR & PROVIDE PHYSICAL ASSISTANCE & EMOTIONAL SUPPORT
--- NOTE | 2019-09-13 05:13 | NUR ---
PT HAS SLEPT PAST 2214
--- NOTE | 2019-09-13 07:40 | NUR ---
PHYSICAL THERAPY Pt seen in the AM to reassess LE's and reflexes pt sitting in w/c LE strength hips 3+ knee/ankles 4/5, retested LE reflexes + clonus BLE in sitting, attempted Babinski but pt pulling LE's away so difficult to assess. Discussed with flako Miller reg concerns for ataxic gt pattern and above finding with relfexes pt has no hx of neuro involvment in chart or when talking to staff at facility. Per nurse she will discuss with MD and Hospitalist. Will follow Amber Francisco PT
[2019-09-13 07:49] VITALS: BP 123/62
--- NOTE | 2019-09-13 07:50 | NUR ---
PHYSICAL THERAPY Patient seen this am for therapy visit and was sitting up activity room w/c upon therapist arrival. Patient identified by name / and reports no new c/o's at this time. OT assistant editor was present for observation only as patient transfers sit to stand MIN A x 2, demonstrating slow initial rise. Patient ambulated with use wh walker, 5'x 2, MIN A, demonstrating very slow, ataxic gait pattern. Patient needed several v/c's to improve increased stride, walker safety / navigation and smoother step sequence. Patient very fearful of falling and needs a little extra time to process simple commands. Patient returned to her w/c in activity room, with body alarm for safety, under [facility] staff Supervision. Will continue per POC as tolerated, total treatment time 14 minutes. Beau Turk, INSULATION WORKER INTERIOR SURFACE
--- NOTE | 2019-09-13 08:00 | NUR ---
Treatment Plan meeting was held with Dr. Thibodeaux, RN, AT, [facility] and Pullman Car Repairer. Plan for discharge next week. Pt. is LTC Resident at [facility]. Pt. will return to facility at discharge.
--- NOTE | 2019-09-13 08:34 | NUR ---
DR DE LA CRUZ ON UNIT TO ASSESS PT, UPDATE PROVIDED.
--- NOTE | 2019-09-13 08:57 | NUR ---
MESSAGE LEFT FOR D.O.N AT [facility] TO RETURN CALL RE: PT RECORDS. WILL AWAIT RETURN CALL
--- NOTE | 2019-09-13 09:05 | NUR ---
PT OFF THE FLOOR FOR HEAD CT WITH SECURITY, MILIEU, [facility], AND TRANSPORT.
--- NOTE | 2019-09-13 09:15 | NUR ---
PT RETURNED FROM HEAD CT.
--- NOTE | 2019-09-13 10:00 | NUR ---
Roxy FROM FACILITY RETURNED CALL AND STATED THAT SHE WOULD LOOK AND SEE IF PT HAS HAD ANY HEAD CT, THE ONLY RECORDS SHE CURRENTLY SEES IS FOR AN ABDOMEN CD, IF SHE FINDS RESULTS SHE WILL FAX THEM. FAX NUMBER PROVIDED.
--- NOTE | 2019-09-13 10:56 | NUR ---
NO ADVERSE MOODS OR BEHAVIORS NOTED THIS SHIFT. MEDICATION COMPLIANT WITHOUT DIFFICULTY. BEHAVIORS MONITORED WITH Q15 MINUTE SAFETY CHECKS. SEE [facility] FLOWSHEET FOR SPECIFIC MONITORING.
--- NOTE | 2019-09-13 11:42 | NUR ---
AM GROUP/MUSIC THERAPY PT ATTENDED AND PARTICIPATED IN ALL GROUP ACTIVITIES. PT WAS FOCUSED AND ON TOPIC. PT EXPRESSED NO SUICIDAL IDEATIONS WHILE IN GROUP
--- NOTE | 2019-09-13 13:40 | NUR ---
Occupational therapy orders received and chart reviewed. Patient was in group upon OT arrival. Will check back at a later date for completion of OT evaluation. Thank you. Carole Saxena, OTR/L
--- NOTE | 2019-09-13 15:25 | NUR ---
Group therapy this afternoon. Discussed life stressors, negative coping skills, and positive coping skills. Provided education about the benefits of positive coping skills. Patients then named positive coping skills. Hand-outs were also provided. Pt listened but would only share when directly asked a question.
--- NOTE | 2019-09-13 19:43 | NUR ---
24 HR chart check completed.
[2019-09-13 19:53] VITALS: BP 125/66
--- NOTE | 2019-09-13 20:42 | NUR ---
KONG/MUSIC/YAHTZEE\ PT ATTENDED AND PARTICIPATED IN ALL GROUP ACTIVITY. PT PLEASANT AND ON TASK WITH NO S.I. EXPRESSED AT THIS TIME. PT WILL CONTINUE TO ATTEND AN DPARTICIPATE IN FUTRUE GROUP SESSIONS TO BEST OF ABILITY.
--- NOTE | 2019-09-13 22:52 | NUR ---
P-MILD ANXIETY, HOPELESS, HELPLESS I-PROVIDE EMOTIONAL SUPPORT, ENCOURAGE VENTILATION OF FEELINGS, ADMINISTED MEDICATIONS, MONITOR SLEEP. R-MOOD MILDLY DEPRESSED WITH MILD ANXIETY. VOICES FRUSTRATION WITH HER PHYSICAL ISSUES. ALERT & ORIENTED X 4. PLEASANT & CO-OPERATIVE WITH STAFF. PARTICIPATED IN GROUP ACTIVITES & INTERACTED WITH PEERS. DENIES SUICIDAL FEELINGS. ATE SNACK. COMPLAINT WITH MEDICATIONS. MOVES ABOUT UNIT VIA WHEELCHAIR & HAS REQUIRED 1 STAFF ASSIST. INCONTINENT OF URINE. P-CONTINUE TO MONITOR & PROVIDE PHYSICAL ASSISTANCE & EMOTIONAL SUPPORT
--- NOTE | 2019-09-14 03:57 | NUR ---
Upon discharge recommend patient to follow up for wound care in outpatient setting continue current wound care orders at discharging facility.
--- NOTE | 2019-09-14 05:11 | NUR ---
PT HAS SLEPT PAST 234
--- NOTE | 2019-09-14 07:20 | NUR ---
PHYSICAL THERAPY Patient seen this am for therapy visit and was sitting up in activity room w/c upon therapist arrival. Patient identified by name / and reports no new c/o's at this time. Patient transported via w/c to hallway in front of nurses station to perform sit to stand transfers at rail. Several [facility] staff members present for observation only during therapy treatment as patient tranasfers sit to stand MOD A. Patient tolerated static stand < 1 minute each trial, demonstrating intial unsteady posture due to NBOS, MIN A x 1. Patient also ambulated FAMILY PRACTICE DOCTOR/MOD, with single handrail support, 10'x 1, demonstrating very unsteady gonzalez, uneven stride and increased diffulty with L foot advance secondary to POOR weight shifting. Patient fatigues quickly needing brief seated rest between attempts and returned to activity room w/c following all treatment. Patient remained in w/c at table awaiting breakfast with body alarm, under [facility] staff Supervision. Will continue per POC as tolerated, total treatment time 15 minutes. Beau Turk, MANAGER CONSUMER
[2019-09-14 07:55] VITALS: BP 107/48
--- NOTE | 2019-09-14 08:00 | NUR ---
Patient resting quietly with no c/o discomfort. Respirations easy and regular. Vital signs stable. No overt distress. BARRY LUQUE ON UNIT TO SEE PT AT THIS TIME. UPDATE GIVEN.
--- NOTE | 2019-09-14 08:00 | NUR ---
Treatment Plan meeting was held with Dr. Thibodeaux, RN, WAITER/WAITRESS COUNTER-S and Supervisor Sandblaster. Plan for discharge Thursday. Pt. will return to [facility].
--- NOTE | 2019-09-14 08:19 | NUR ---
Dr. Solis notified of wound care recommendations.
--- NOTE | 2019-09-14 08:30 | NUR ---
ON UNIT TO SEE PT AT THIS TIME.
[2019-09-14 12:08] LABS: RETICULOCYTE % 3.15 % (0.50-2.50)
[2019-09-14 12:28] LABS: IRON 69 ug/dL (50-170); TOTAL IRON BINDING CAPACITY 324 ug/dl (250-450)
--- NOTE | 2019-09-14 15:32 | NUR ---
NO ADVERSE MOODS OR BEHAVIORS THIS SHIFT. PT IS ALERT AND ORIENTED X4. MEMORY INTACT. RESPS EASY AND EVEN ON ROOM AIR. MOOD STABLE, AFFECT IS BROAD RANGE AND APPROPRIATE. SPEECH IS WNL AND COHERENT, ABLE TO COMMUNICATE EFFECTIVELY AND MAKES NEEDS KNOWN WITHOUT DIFFICULTY. PT STATES SHE IS FEELING MUCH BETTER AND STATES "I'M NOT ANGRY OR EDGY I WAS". PT NOTED TO BE INTERACTING WELL WITH STAFF AND PEERS. PT DENIES SI/HI, INTENT OR PLAN. PT DENIES HALLUCINATIONS, NO RESPONSE TO INTERNAL STIMULI NOTED. NO PARANOIA OR DELUSIONS NOTED. PT IS CALM, PLEASANT AND COOPERATIVE. MED COMPLIANT WITHOUT DIFFICULTY. NO DISTRESS NOTED. PLAN TO CONTINUE CURRENT TREATMENT, CONTINUE TO MONITOR MOOD AND BEHAVIORS, PROVIDE APPROPRIATE REORIENTATION, REDIRECTION AND 1:1 NEEDED. CONTINUE TO ENCOURAGE MED COMPLIANCE WELL GROUP ATTENDANCE AND PARTICIPATION.
--- NOTE | 2019-09-14 16:27 | NUR ---
SHIFT CHART CHECK COMPLETED.
[2019-09-14 19:49] VITALS: BP 124/58
--- NOTE | 2019-09-14 23:35 | NUR ---
PT IS IRRITABLE, SARCASTIC. PT ASKED IF SHE FEELS BETTER. STATES "YEAH, I'M AWAKE". PT STATES "IT DOESN'T LOOK LIKE MY ROOMMATE IS GOING TO TODAY, SO I GUESS IT IS JUST ANOTHER DAY". PT ENCOURAGED TO REST AND TAKE TIME TO DESTIMULATE BY HERSELF IF SHE IS FEELING OVERWHELMED. PT ENCOURAGED TO VERBALIZE FEELINGS TO STAFF. PT STATES SHE JUST WANTS TO GO TO BED AND THAT MAY HELP HER MOOD. WILL CONTINUE TO MONITOR AND ENCOURAGE PT TO VERBALIZES FEELINGS TO STAFF. Q 15 MIN MONITORING PER POLICY FOR SAFETY.
--- NOTE | 2019-09-15 05:43 | NUR ---
pt slept approximately 7 hours this shift
--- NOTE | 2019-09-15 07:20 | NUR ---
PHYSICAL THERAPY Patient seen this am for therapy visit and was sitting up in activity room w/c upon therapist arrival. Patient identified by name / and was very pleasant this morning. OT asssistant was present for observation only this session as patient transfers sit to stand MIN A with use of wh walker. Patient ambulated 15'x 1, MIN/CGA, use of wh walker, demonstrating improved stride, increased confidence and no LOB. Patient needed v/c for focus on task to improve safety awareness and returned to her w/c in activity room with body alarm, under [facility] staff Supervision. Will continue per POC as tolerated, total treatment time 14 minutes. Beau Turk, TAX ASSESSOR
--- NOTE | 2019-09-15 08:00 | NUR ---
Treatment Plan meeting was held with Dr. Thibodeaux, RN AT, [facility] and Digital Account Coordinator. Plan for discharge next week. Pt. came to [facility] From [facility] and will return at discharge.
[2019-09-15 08:25] VITALS: BP 118/65
--- NOTE | 2019-09-15 10:10 | NUR ---
Dr. Bryant notified of wound care recommendations.
--- NOTE | 2019-09-15 11:00 | NUR ---
Occupational Therapy evaluation completed on 3N with full eval to follow. Recommend OT per POC for feeding,grooming,dressing,bathing, functional transfers and UE strengthing and return to [facility]. Thank you. Lea Raymundo OTr/l
--- NOTE | 2019-09-15 11:54 | NUR ---
AM GROUP PT WAS IN A PRIVATE SESSION WITH LIKE PEERS AND THE SALES REPRESENTATIVE CHURCH FURNITURE.
--- NOTE | 2019-09-15 15:59 | NUR ---
Group therapy this AM. Pt participated fully in discussion about gratitude and the power of thankfulness. Discussed principles of gratitude and action to incorporate the principles. Discussed the use of a gratitude journal. Hand-outs provided and gratitude journal sheets provided. Pt shared about her concerns about NF. Group assisted in problem solving and assisting pt in finding the positive to be thankful for.
--- NOTE | 2019-09-15 18:06 | NUR ---
NO ADVERSE MOODS OR BEHAVIORS THIS SHIFT. PT IS ALERT AND ORIENTED X4. MEMORY INTACT. RESPS EASY AND EVEN ON ROOM AIR. MOOD STABLE, AFFECT IS BROAD RANGE AND APPROPRIATE. SPEECH IS WNL AND COHERENT, ABLE TO MAKE NEEDS KNOWN WITHOUT DIFFICULTY. PT NOTED TO BE INTERACTING APPROPRIATELY WITH STAFF AND PEERS. PT DENIES SI/HI, INTENT OR PLAN. PT DENIES HALLUCINATIONS, NO RESPONSE TO INTERNAL STIMULI NOTED. NO PARANOIA OR DELUSIONS NOTED. PT IS CALM, PLEASANT AND COOPERATIVE. MED COMPLIANT WITHOUT DIFFICULTY. NO DISTRESS NOTED. PLAN TO CONTINUE CURRENT TREATMENT, CONTINUE TO MONITOR MOOD AND BEHAVIORS, PROVIDE APPROPRIATE REORIENTATION, REDIRECTION AND 1:1 NEEDED. CONTINUE TO ENCOURAGE MED COMPLIANCE WELL GROUP ATTENDANCE AND PARTICIPATION.
[2019-09-15 20:08] VITALS: BP 122/66
--- NOTE | 2019-09-15 22:51 | NUR ---
NO ADVERSE BEHAVIORS NOTED. PATIENT ALERT AND ORIENTED X4. PT CALM, COOPERATIVE, AND INTERACTIVE. PT SAT IN DINING ROOM WITH PEERS TO WATCH A MOVIE AND HAD SNACK. DURING 1:1 PATIENT STATED THAT SHE FEELS FINE AND IS READY FOR BED. PT DENIES SUICIDAL IDEATIONS AND CONTRACTED FOR SAFETY. PT ALSO DENIES HI, HALLUCINATIONS, OR PAIN. NO PARANOIA OR DELUSIONS NOTED. PT MEDICATION COMPLIANT WITHOUT DIFFICULTY AFTER REVIEW. PT MOBILIZES SELF AROUND UNIT USING A W/C, ASSIST X1, CONTINENT/INCONTINENT OF BOWEL AND BLADDER. PT CURRENTLY LAYING DOWN WITH EYES CLOSED, RESPIRATIONS EASY AND REGULAR, NO SIGNS OR SYMPTOMS OF DISTRESS NOTED. PLAN IS TO CONTINUE MONITOR MOOD AND BEHAVIORS. PROVIDE 1:1 WITH THERAPEUTIC INTERVENTIONS. PROVIDE EMOTIONAL SUPPORT NEEDED. ENCOURAGE MEDICATION COMPLIANCE AND EDUCATE. MAINTAIN Q 15 MIN CHECKS.
--- NOTE | 2019-09-15 23:43 | NUR ---
24 HOUR CHART CHECK COMPLETED.
--- NOTE | 2019-09-16 05:54 | NUR ---
PATIENT OBSERVED ON Q 15 MIN CHECKS TO HAVE SLEPT APPROX 8 HOURS UNINTERRUPTED. NO SIGNS OR SYMPTOMS OF DISTRESS NOTED.
[2019-09-16 07:48] VITALS: BP 127/67
--- NOTE | 2019-09-16 08:05 | NUR ---
Patient in dining room eating with no c/o discomfort. Respirations easy and regular. Vital signs stable. No overt distress. JAYESH TOLBERT
--- NOTE | 2019-09-16 08:10 | NUR ---
PHYSICAL THERAPY Patient seen this am for therapy visit and was sitting up in activity room w/c upon therapist arrival. Patient identified by name / and reports no new c/o's at this time. OT lpn or medical assistant was present for observation only this session as patient transfers sit to stand MIN A, ambulating with use of wh walker, MIN A, 20'x 1, demonstrating uneven, decreased stride, with unsteady gait pattern. Patient fatigues quickly, needing brief seated rest break then ambulated additional 15'x1, CGA, demonstating improved step sequenc with increased stride. Patient was very pleased with her performance this session and returned to her w/c in activity room, with body alarm, under [facility] staff Supervision. Will continue per POC as tolerated, total treatment time 16 minutes. Beau Turk, WINDOWS SERVER ARCHITECT
--- NOTE | 2019-09-16 08:25 | NUR ---
OT NOTE Prior to coming to floor spoke with charge nurse Cristiano and reported that therapy was coming to work with this pt. Pt was seen this A.M. 1:1 for 25 minute OT session with PRODUCT SAFETY COORDINATOR and nursing staff present for observation only. Upon arrival pt was supine in bed. Pt identified by name and and had no complaints at this time. Pt's breakfast tray arrived which she required Gumaro for set up of tray and completed self feeding using her RUE with SBA. Pt was able to manage all utensils and drinks with SBA. After pt was done eating pt was taken to the bedroom where she completed sit to stand from chair level with Gumaro and use of w/w followed by functional mobility into the bathroom with CGA. There she transferred on/off standard commode with Gumaro. Clothing management completed with maxA due to having LOB while standing without UE support and toilet hygiene completed with SBA while seated. Pt was left sitting upright in the w/c in the dining jimenez under U staff supervision with body alarm activated for safety. Continue with rec D/C plan to return to LTC. NELDA Oliveros/Shannan
--- NOTE | 2019-09-16 11:54 | NUR ---
JAY BURCH/JEFF PT ATTENDED MORNING GROUP THERAPY AND PARTICIPATED IN ALL ACITIVITIES. PT WAS FOCUSED AND ENGAGED FOR THE MOST PART BUT DID NOD OFF A FEW TIMES. PT EXPRESSED NO SUICIDAL IDEATIONS WHILE IN GROUP.
--- NOTE | 2019-09-16 13:33 | NUR ---
PHYSICAL THERAPY CO-SIGN I approve of the Phyical Therapy notes written above. Amber Francisco PT
--- NOTE | 2019-09-16 14:34 | NUR ---
Group session co-facilitated with Kim Landaverde, technical services coordinator. Topic of group: Boss's Day, types of love, and self-love/self-care. Pt attended and participated fully until topic moved to self-love/self-care. Pt was noticeably quiet during that discussion time.
--- NOTE | 2019-09-16 15:29 | NUR ---
PT C/O RIGHT KNEE PAIN PRN TYLENOL GIVEN PER ORDER. PT STATES TYLENOL IS EFFECTIVE. STATES THAT THE RIGHT KNEE PAIN IS CHRONIC AND THAT SHE HAS ARTHRITIS, BUT IT DOES NOT HURT AT THIS TIME. WILL CONTINUE TO MONITOR PT'S PAIN RATING. WILL CONTINUE TO MONITOR Q15 MIN PER POLICY FOR SAFETY.
--- NOTE | 2019-09-16 15:35 | NUR ---
PM GROUP PT ATTENDED AFTERNOON GROUP THERAPY AND PARTICIPATED IN ALL GROUP ACTIVITIES. PT EXPRESSED NO SUICIDAL IDEATIONS WHILE IN GROUP.
--- NOTE | 2019-09-16 15:59 | NUR ---
Clinical Updates faxed to [facility] [phone].
--- NOTE | 2019-09-16 17:11 | NUR ---
Treatment Plan meeting was held with NISHA Lawrence, RN, AT, CRACKER DOUGH MIXER-S and Convalescent Sitter. Plan for discharge Next week with return to [facility].
[2019-09-16 20:17] VITALS: BP 130/60
--- NOTE | 2019-09-17 05:33 | NUR ---
24 HOUR CHART CHECK COMPLETED.
--- NOTE | 2019-09-17 06:07 | NUR ---
PATIENT OBSERVED ON Q 15 MIN CHECKS TO HAVE SLEPT APPROX 8 HOURS THROUGHOUT THE NIGHT WITH NO AWAKENINGS OR SIGNS AND SYMPTOMS OF DISTRESS NOTED.
[2019-09-17 07:54] VITALS: BP 125/62
--- NOTE | 2019-09-17 08:07 | NUR ---
Patient eating breakfast in dining room with peers at this time. Respirations easy and regular. Vital signs stable. No overt distress. BARRY LUQUE PMMIRIAM- ON UNIT TO SEE PT AT THIS TIME. UPDATE GIVEN.
--- NOTE | 2019-09-17 08:50 | NUR ---
ON UNIT TO SEE PT AT THIS TIME. AWARE OF PT C/O RIGHT KNEE PAIN. STATES WILL ORDER XRAY.
--- NOTE | 2019-09-17 08:58 | NUR ---
PRN TYLENOL 650MG PO GIVEN AT THIS TIME PER PT REQUEST FOR C/O RIGHT KNEE PAIN RATED LEVEL 5/10. WILL MONITOR FOR MEDICATION EFFECT.
--- NOTE | 2019-09-17 09:45 | NUR ---
PT OFF UNIT FOR RIGHT KNEE XRAY AT THIS TIME WITH [facility] AND [facility]. TICKET TO RIDE SENT WITH PT.
--- NOTE | 2019-09-17 10:00 | NUR ---
PT RETURNED FROM XRAY WITHOUT INCIDENT.
--- NOTE | 2019-09-17 10:30 | NUR ---
PT REPORTS TYLENOL HAS BEEN EFFECTIVE. STATES HER KNEE IS NO LONGER HURTING, RATED 0/10 ON PAIN SCALE AT THIS TIME.
--- NOTE | 2019-09-17 12:00 | NUR ---
AM GROUP/AFFIRMATIONS/MUSIC PT IN ATTENDNACE AND AT BEGINNING OF GROUP PT AGITATED STATING "IF ANYBODY CARES I AM VERY ANGRY RIGHT NOW BECAUSE I DON'T KNOW WHEN I GET TO GO HOME" THIS STAFF ATTEMPTS TO REDIRECT/COMFORT PT AND SUGGEST TO TAKE A BREATHER NEXT DOOR. PT BEGINS CUSSING "FUCK, SHIT, FUCK, SHIT!". PT EVENTUALLY CALMS AND STARTS LISTENING/SINGING A LONG TO MUSIC AND SOCIALIZING WITH PEERS. PT EXPRESSES NO S.I. AT THIS TIME.
--- NOTE | 2019-09-17 13:40 | NUR ---
NO ADVERSE MOODS OR BEHAVIORS THIS SHIFT. PT IS ALERT AND ORIENTED X4. MEMORY INTACT. RESPS EASY AND EVEN ON ROOM AIR. MOOD STABLE, AFFECT IS BROAD RANGE AND APPROPRIATE. SPEECH IS WNL AND COHERENT, ABLE TO MAKE NEEDS KNOWN WITHOUT DIFFICULTY. INTERACTS WELL WITH STAFF AND PEERS. PT DENIES SI/HI, INTENT OR PLAN. PT DENIES HALLUCINATIONS, NO RESPONSE TO INTERNAL STIMULI NOTED. NO PARANOIA OR DELUSIONS NOTED. PT IS CALM, PLEASANT AND COOPERATIVE. MED COMPLIANT WITHOUT DIFFICULTY. NO DISTRESS NOTED. PLAN TO CONTINUE CURRENT TREATMENT, CONTINUE TO MONITOR MOOD AND BEHAVIORS, PROVIDE APPROPRIATE REORIENTATION, REDIRECTION AND 1:1 NEEDED. CONTINUE TO ENCOURAGE MED COMPLIANCE WELL GROUP ATTENDANCE AND PARTICIPATION.
--- NOTE | 2019-09-17 15:59 | NUR ---
PM GROUP/AFFIRMATIONS/MOVIE PT CHOSE NOT TO ATTEND OR PARTICIPATE IAT THIS TIME BUT TO TAKE A NAP IN ROOM.
[2019-09-17 20:00] VITALS: BP 131/83
--- NOTE | 2019-09-17 20:23 | NUR ---
24 HR chart check completed.
--- NOTE | 2019-09-18 01:12 | NUR ---
P-MILD ANXIETY I-PROVIDE EMOTIONAL SUPPORT, ENCOURAGE VENTILATION OF FEELINGS, ADMINISTED MEDICATIONS, MONITOR SLEEP. R-STABLE MOOD. PRIOR TO GOING TO BED SHE WAS BRIEFLY TEARFUL WITH MILD ANXIETY. UPSET WITH HERSELF FOR BEING IRRITABLE WITH A FEMALE STAFF EARLIER. INSISTED ON SPEAKING TO STAFF IN PERSON & WAS TEARFUL WHILE APOLOGIZING. ALERT & ORIENTED X 4. PLEASANT & CO-OPERATIVE WITH STAFF. INTERACTS WITH PEERS. DENIES SUICIDAL FEELINGS. ATE SNACK. COMPLAINT WITH MEDICATIONS. MOVES ABOUT UNIT VIA WHEELCHAIR & HAS REQUIRED 1 STAFF ASSIST. P-CONTINUE TO MONITOR & PROVIDE PHYSICAL ASSISTANCE & EMOTIONAL SUPPORT
--- NOTE | 2019-09-18 05:35 | NUR ---
PT WAS SLEEPING PAST 2229. SLEEP HAS BEEN DISRUPTED BY HER ROOM MATE CONSTANTLY RINGING BEDSIDE ALARM & ASKING STAFF FOR FREQUENT REQUESTS. PT BECAME IRRITABLE WITH ROOM MATE & SAID TO HER "I'M TIRED OF STAFF HAVING TO KEEP COMING IN HERE & TELLING YOU THE SAME THING OVER & OVER AGAIN. WHY DO THEY HAVE TO TELL YOU 3-4 X TO DO THE SAME THING? THIS IS [facility] NOT [facility]ABY [facility]. YOUR CAPABLE OF DOING THOSE THINGS YOURSELF." PT REQUESTED TO BE MOVED OUT OF THE ROOM SO SHE COULD REST. ASSISTED TO A BARBARA CHAIR WITHOUT A TRAY & MOVED TO A QUIET ROOM NEAR NURSES STATION. PT RETURNED TO SLEEP.
[2019-09-18 07:38] VITALS: BP 130/62
--- NOTE | 2019-09-18 08:24 | NUR ---
Patient sitting quietly with no c/o discomfort. Respirations easy and regular. Vital signs stable. No overt distress. JAYESH TOLBERT
--- NOTE | 2019-09-18 12:18 | NUR ---
AM GROUP/LEISURE SKILLS PT ATTENDED AND PARTICIPATE THROUGH SOCIALIZATION/DISCUSSION. PT PLEASANT AND ON TASK UNTIL STAFF PUTS A MOVIE ON THAT PT STATES "I REALLY REALLY DONT WANT TO WATCH THIS, NOW IM HAVING A BAD DAY" PT ENCOURAGED TO GO NEXT DOOR, BUT CHOOSES TO STAY. PT BEGAN WATCHING MOVIE AND STARTED SMILING/STATING ACTORS/ACTRESSES SHE KNOWS OF. PT PLEASANT AGAIN. NO S.I. EXPRESSED AT THIS TIME.
--- NOTE | 2019-09-18 19:28 | NUR ---
24 HR chart check completed.
[2019-09-18 19:43] VITALS: BP 130/63
--- NOTE | 2019-09-18 23:01 | NUR ---
P- FEELING REALLY GOOD THIS EVENING" I-PROVIDE EMOTIONAL SUPPORT, ENCOURAGE VENTILATION OF FEELINGS, ADMINISTED MEDICATIONS, MONITOR SLEEP. R-STABLE MOOD. ALERT & ORIENTED X 4. PLEASANT & CO-OPERATIVE. INTERACTS WITH PEERS. DENIES SUICIDAL FEELINGS. ATE SNACK. COMPLAINT WITH MEDICATIONS. MOVES ABOUT UNIT VIA WHEELCHAIR & HAS REQUIRED 1 STAFF ASSIST. REQUESTED TO SLEEP IN BARBARA CHAIR THIS EVENING SO SHE COULD SLEEP & AVOID ANY ISSUES WITH ROOM MATE BEING AWAKE THROUGH OUT NIGHT. P-CONTINUE TO MONITOR & PROVIDE PHYSICAL ASSISTANCE & EMOTIONAL SUPPORT
--- NOTE | 2019-09-19 05:43 | NUR ---
GORDONERIS AG [id number] Please refer to the physician's history and physical for past medical history, comorbid conditions, and allergies. Diagnosis: MAJOR DEPRESSION RECURRENT SEVERE Bennett Score: 15,AT RISK WOUND DESCRIPTIONS: ( FOLLOW UP VISIT ) Wound Number: 1 Location of the wound: Coccyx Type of wound: stage 2 Thickness: Partial Size: 0.5cm x 0.2cm x 0.1cm Tunneling: none Undermining: none Sinus Tract: none Presence of Exudate: Serosanguineous Amount: Light Color: Red Odor: None Periwound Skin Appearance: Normal Wound edges: approximated Pain (associated with wound): none at time of assessment Bilateral heels are red and blanchable at time of assessment. No open areas noted at time of assessment. No drainage noted at time of assessment. Surface the patient is resting on: Proform SKIN PREVENTION RECOMMENDATION: 1. Pressure redistribution support surface as appropriate 2. Elevate heels 3. Remove boots/TEDS every shift and reapply 4. Head of bed 30 degrees as tolerated 5. Assess nutrition and hydration 6. Manage moisture 7. Avoid the use of containment devices while in bed 8. Use absorptive products on surfaces limit layers of linens on bed 9. Turn and reposition every 1-2 hours in bed and every 1 hour in chair as tolerated 10. Weight shifts every 15 minutes while up in chair 11. Offloading with pillows or device to keep heels elevated off bed 12. Monitor skin at least every shift 13. Inspect under medical devices twice a day WOUND TREATMENT RECOMMENDATIONS: Continue to cleanse coccyx with soap and water and apply calazime every shift and prn for soiling. Continue seat cushion when oob. Heel raiser pro boots to bilateral feel while in bed.
--- NOTE | 2019-09-19 06:13 | NUR ---
PT HAS SLEPT QUIETLY PAST 2315 IN A BARBARA CHAIR PER HER REQUEST.
[2019-09-19 07:47] VITALS: BP 118/73
--- NOTE | 2019-09-19 07:50 | NUR ---
OT NOTE Prior to going up to the floor called charge nurse Miranda who was notified of therapy coming to the floor to treat this pt. Pt was seen this A.M. 1:1 for 25 minute OT session with APPLICATION SECURITY SPECIALIST and nursing staff present for observation only. Upon arrival pt was sitting upright in the w/c in the dining jimenez. Pt identified by name and and had complaints of 5/10 R knee pain with activity. Pt was taken to her room where she completed sit to stand from chair level with Gumaro and use of w/w for UE support. Functional mobility was then completed to the bathroom with CGA and use of w/w, throughout pt had two episodes of R knee buckling requiring Gumaro to correct. There she transferred on to standard commode with Gumaro due to poor safety when sitting due to sitting before safe alignment with commode. Pt then transferred off standard commode with Gumaro due to low surface. Functional mobility was then completed back to the w/c with CGA and use of w/w. Pt's breakfast tray then arrived which she required Gumaro for set up of tray due to being unable to open her packages. Pt then completed self feeding with supervision while managing all utensils and drinks. Pt was left sitting upright in the w/c in the dining jimenez under [facility] staff supervision. Continue with rec D/C plan to return to LTC. NELDA Oliveros/Shannan
--- NOTE | 2019-09-19 08:00 | NUR ---
Treatment Plan meeting was held with NISHA Lawrence RN, AT, LINEMAN APPRENTICE-S and Excel Specialist. Plan for discharge today. Pt. will return to [facility]. Transportation arranged with [facility] to transport with hot die picker time 2:00 p.m. Family notified of discharge. Call placed to Ilda Barney at [facility] and Notified her of discharge and forklift supervisor time.
--- NOTE | 2019-09-19 08:25 | NUR ---
PHYSICAL THERAPY Patient seen this am for therapy visit and was sitting in her w/c at table following breakfast upon therapist arrival. Patient identified by name / and reports no new c/o's at this time. OT account management assistant was present this morning for observation only this session as patient stated she has not walked if any this past weekend. Patient transfers sit to stand MIN A, then ambulates 15'x 1 to bathroom, use of wh walker, MIN A, demonstrating uneven stride with "step to" gonzalez. Patient reported 5/10 chronic R knee pain and needed v/c to improve walker step sequence with increased B UE support. Patient returend to w/c 10'x 1 and remained with body alarm while transported back to activity room under U staff Supervision. Will continue per POC as tolerated, total treatment time 15 minutes. Beau Turk, CREDENTIALING SPECIALIST
--- NOTE | 2019-09-19 08:30 | NUR ---
DR. UGARTE ON UNIT TO ASSESS PATIENT.
[2019-09-19] MEDS ORDERED: MIRTAZAPINE30 M2 PO (09:22)
--- NOTE | 2019-09-19 09:58 | NUR ---
PATIENT IS ALERT TO PERSON, PLACE, TIME AND SITUATION; ABLE TO VOCIE NEEDS. MOOD IS STABLE. DENIES ANY HALLUCINATIONS, DELUSIONS, HI/SI OR PAIN. INTERACTIVE WITH STAFF AND OTHER PATIENTS. PARTICIPATES IN GROUP SESSION. NO RESPONSE TO INTERNAL STIMULI OBSERVED. MEDICATION COMPLAINT WITH EDUCATION PROVIDED. Q 15 MINUTE SAFETY CHECKS MAINATINED. 1 PERSON ASSIST WITH ACTIVITIES OF DAILY LIVING, INCONTINENT OF BOWEL AND BLADDER. CURRENTLY ON TOILETING PROGRAM. MEAL INTAKE ARE FAIR WITH ADEQUATE FLUIDS. CONTINUE TO MONOTIR FOR AGGRESSION, MOOD AND THOUHGTS OF SUICIDEAL IDEATOINS. PROVIDE ONE ON ONE FOR EMOTIONAL SUPPORT, REDIRECTION NEEDED.
--- NOTE | 2019-09-19 11:46 | NUR ---
AM GROUP/MOVIE PT ATTENDED MORNING GROUP THERAPY AND PARTICIPATED BY WATCHING THE MOVIE. PT WAS ENGROSSED IN THE MOVIE AND EVEN CRIED AT THE ENDING. PT EXPRESSED NO SUICIDAL IDEATIONS DURING GROUP. PT IS SET TO POSSIBLY DISCHARGE FROM THE UNIT TODAY.
--- NOTE | 2019-09-19 12:50 | NUR ---
NURSE TO NURSE REPORT GIVEN TO CHARITO AT [facility].
--- NOTE | 2019-09-19 13:50 | NUR ---
LIFE TEAM AMBULANACE SERVICE PRESENT. PATIENT ASSISTED TO [facility] AND ALL BELONGING GATHERED. DISCHARGE INSTRUCTIONS SENT WITH PATIENT OFF UNIT WITH AMBULANCE SERVICE.
--- NOTE | 2019-09-19 14:27 | NUR ---
Patient discharged today to [facility]. Follow-up will be with Dr Thibodeaux, visiting psychiatrist. While at [facility], pt's mood improved. Pt denied suicidal ideations. She participated in programming and was social with staff and her peers.
--- NOTE | 2019-09-20 07:48 | NUR ---
OCCUPATIONAL THERAPY CO-SIGN I approve of the Occupational Therapy notes written above. LO SALOMON, OTR/L
--- NOTE | 2019-09-20 07:55 | NUR ---
PHYSICAL THERAPY CO-SIGN I approve of the Phyical Therapy notes written above. Amber Francisco PT
== END 2019-09-19 13:50 | DRG 885 ==
LOC: 3N 14:06
PROVIDERS: Internal Medicine; ADMIT Psychiatry & Neurology Psychiatry
DX: F33.2 Major depressive disorder, recurrent severe without psychotic features (principal); R45.851 Suicidal ideations; R26.2 Difficulty in walking, not elsewhere classified; N18.3 Chronic kidney disease, stage 3 (moderate); M19.90 Unspecified osteoarthritis, unspecified site; F43.10 Post-traumatic stress disorder, unspecified; Z51.5 Encounter for palliative care; Z66 Do not resuscitate; F41.9 Anxiety disorder, unspecified; I48.91 Unspecified atrial fibrillation; I25.10 Atherosclerotic heart disease of native coronary artery without angina pectoris; I12.9 Hypertensive chronic kidney disease with stage 1 through stage 4 chronic kidney disease, or unspecified chronic kidney disease; E11.22 Type 2 diabetes mellitus with diabetic chronic kidney disease; M17.10 Unilateral primary osteoarthritis, unspecified knee; E11.69 Type 2 diabetes mellitus with other specified complication; K21.9 Gastro-esophageal reflux disease without esophagitis; Z88.2 Allergy status to sulfonamides; Z88.8 Allergy status to other drugs, medicaments and biological substances; Z91.018 Allergy to other foods; Z81.8 Family history of other mental and behavioral disorders; Z79.899 Other long term (current) drug therapy; Z79.01 Long term (current) use of anticoagulants

== ENCOUNTER 2020-01-11 18:01 | Inpatient (IN) | payer MEDICARE, MEDICAID ==
[~2020-01-11] VITALS: Ht 165.1 cm; Wt 54.0 kg
[~2020-01-11 18:01] MED LIST changes: +MINIPRESS2 M2 PO; +MIRTAZAPINE30 M2 PO; +RIVASTIGMINE TAR6 M1 PO; +XIFAXAN550 MG PO
[2020-01-11] MEDS ORDERED: VISTARIL50 MG PO (18:05)
[2020-01-11] MEDS ORDERED: SENNA-LAX8.6 MG PO (18:06)
[2020-01-11] MEDS ORDERED: GAS RELIEF 8080 MG PO (18:06)
[2020-01-11] MEDS ORDERED: MUSCLE RUB CREA35 GM T (18:07)
[2020-01-11 22:47] VITALS: BP 111/79
[2020-01-11 23:09] VITALS: BP 111/79
[2020-01-12 06:31] LABS: HEMATOCRIT 38.5 % (37.0-47.0); MEAN CELL VOLUME 108.8 fl (81.0-99.0); MEAN CORPUSCULAR HGB CONC 32.2 g/dl (33.0-37.0); MEAN PLATELET VOLUME 12.7 fl (9.6-12.3); PLATELET COUNT AUTOMATED 73 10*3/uL (130-400); RED BLOOD COUNT 3.54 10*6/uL (4.10-5.10); RED CELL DISTRI WIDTH 14.7 % (0-14.5); WHITE BLOOD COUNT 8.9 10*3/uL (4.8-10.8)
[2020-01-12 06:48] LABS: ALBUMIN 2.9 gm/dl (3.1-4.5); ALKALINE PHOSPHATASE 45 U/L (45-117); BUN 19 mg/dl (7-24); CHLORIDE 109 mmol/L (98-107); CHOLESTEROL 129 mg/dL (<200); CREATININE 0.95 mg/dL (0.55-1.02); HDL CHOLESTEROL 30 mg/dl (40-60); LDL CHOLESTEROL 80 mg/dL (9-159); POTASSIUM 3.8 mmol/L (3.5-5.1); SGOT/AST 11 IU/L (3-35); SGPT/ALT 12 U/L (12-78); SODIUM 139 mmol/L (136-145); TOTAL PROTEIN 6.9 gm/dL (6.4-8.2); TRIGLYCERIDES 94 mg/dl (<150); VLDL CHOLESTEROL 19 mg/dL (6-40)
[2020-01-12 07:22] LABS: OVALOCYTES MODERATE; PLATELET SUFFICIENCY LOW (NORMAL); TOTAL CELLS COUNTED 100 #CELLS
[2020-01-12 08:00] VITALS: BP 117/84
[2020-01-12 08:13] LABS: VITAMIN D, 25-HYDROXY 39.3 ng/mL (30-100)
[2020-01-12 20:00] VITALS: BP 128/72
[2020-01-13 08:00] VITALS: BP 120/82
[2020-01-13 14:04] LABS: BILIRUBIN NEGATIVE (NEGATIVE); CLARITY CLOUDY (CLEAR); COLOR YELLOW (YELLOW); GLUCOSE NEGATIVE (NEGATIVE); KETONE NEGATIVE (NEGATIVE)
[2020-01-13 14:05] LABS: BLOOD 1+ (NEGATIVE); LEUKO ESTERASE 3+ (NEGATIVE); NITRITE NEGATIVE (NEGATIVE); PH 6.5 (5.0-9.0); UROBILINOGEN 0.2 E.U./dl (0.2-1.0)
[2020-01-13 14:25] LABS: BACTERIA 4+; EPITHELIAL CELLS 21-30; WBC 51-100 wbc/hpf (0-5)
[2020-01-13 20:00] VITALS: BP 128/60
[2020-01-14 07:54] VITALS: BP 111/57
[2020-01-14 20:00] VITALS: BP 126/56
[2020-01-15 08:00] VITALS: BP 132/64
[2020-01-15 20:00] VITALS: BP 128/60
[2020-01-16 07:29] VITALS: BP 121/70
[2020-01-16 19:10] VITALS: BP 130/61
[2020-01-17 07:43] VITALS: BP 129/64
[2020-01-17 19:02] VITALS: BP 105/65
[2020-01-18 07:37] VITALS: BP 138/53
[2020-01-18 09:41] LABS: HEMATOCRIT 39.9 % (37.0-47.0); MEAN CELL VOLUME 109.6 fl (81.0-99.0); MEAN CORPUSCULAR HGB 35.7 pg (27.0-31.0); MEAN CORPUSCULAR HGB CONC 32.6 g/dl (33.0-37.0); MEAN PLATELET VOLUME 12.5 fl (9.6-12.3); PLATELET COUNT AUTOMATED 74 10*3/uL (130-400); RED BLOOD COUNT 3.64 10*6/uL (4.10-5.10); RED CELL DISTRI WIDTH 14.8 % (0-14.5); WHITE BLOOD COUNT 9.6 10*3/uL (4.8-10.8)
[2020-01-18 10:09] LABS: ATYPICAL LYMPHS 1 % (0-0); TOTAL CELLS COUNTED 100 #CELLS
[2020-01-18 10:10] LABS: OVALOCYTES FEW; PLATELET SUFFICIENCY NORMAL (NORMAL); POLYCHROMASIA SLIGHT
[2020-01-18 10:14] LABS: CHLORIDE 106 mmol/L (98-107); POTASSIUM 3.9 mmol/L (3.5-5.1); SODIUM 138 mmol/L (136-145)
[2020-01-18 10:27] LABS: ALBUMIN 2.9 gm/dl (3.1-4.5); ALKALINE PHOSPHATASE 46 U/L (45-117); BUN 20 mg/dl (7-24); CREATININE 0.95 mg/dL (0.55-1.02); SGOT/AST 21 IU/L (3-35); SGPT/ALT 14 U/L (12-78); TOTAL PROTEIN 6.9 gm/dL (6.4-8.2)
[2020-01-18 19:43] VITALS: BP 128/62
[2020-01-19 08:00] VITALS: BP 124/61
[2020-01-19 19:21] VITALS: BP 133/57
[2020-01-20 07:57] VITALS: BP 111/60
[2020-01-20] MEDS ORDERED: MIRTAZAPINE15 M2 PO (10:07)
[2020-01-20] MEDS ORDERED: ABILIFY5 MG PO (10:07)
[2020-01-20] MEDS ORDERED: TRIHEXYPHENIDYL2 M3 PO (10:07)
[2020-01-20 19:50] VITALS: BP 110/58
[2020-01-20 21:32] VITALS: BP 122/68
[2020-01-21 07:46] VITALS: BP 134/65
== END 2020-01-21 11:45 | DRG 885 ==
LOC: 3N 18:01
PROVIDERS: Counselor Professional; ADMIT Psychiatry & Neurology Psychiatry
DX: F33.3 Major depressive disorder, recurrent, severe with psychotic symptoms (principal); N30.00 Acute cystitis without hematuria; N18.3 Chronic kidney disease, stage 3 (moderate); I25.10 Atherosclerotic heart disease of native coronary artery without angina pectoris; Z03.818 Encounter for observation for suspected exposure to other biological agents ruled out; K21.9 Gastro-esophageal reflux disease without esophagitis; F43.10 Post-traumatic stress disorder, unspecified; I48.0 Paroxysmal atrial fibrillation; E78.5 Hyperlipidemia, unspecified; I12.9 Hypertensive chronic kidney disease with stage 1 through stage 4 chronic kidney disease, or unspecified chronic kidney disease; E11.22 Type 2 diabetes mellitus with diabetic chronic kidney disease; M17.10 Unilateral primary osteoarthritis, unspecified knee; G30.9 Alzheimer's disease, unspecified; F02.80 Dementia in other diseases classified elsewhere, unspecified severity, without behavioral disturbance, psychotic disturbance, mood disturbance, and anxiety; B96.20 Unspecified Escherichia coli [E. coli] as the cause of diseases classified elsewhere; Z81.8 Family history of other mental and behavioral disorders; Z79.899 Other long term (current) drug therapy; Z88.2 Allergy status to sulfonamides; Z88.8 Allergy status to other drugs, medicaments and biological substances

== ENCOUNTER 2020-03-15 00:18 | Inpatient (IN) | payer MEDICARE, MEDICAID ==
[~2020-03-15] VITALS: Ht 165.1 cm; Wt 51.7 kg
[~2020-03-15 00:18] MED LIST changes: +ABILIFY5 MG PO; +DULCOLAX10 M1 R; +FLEET ENEMA 13133 ML R; +GAS RELIEF 8080 MG PO; +MILK OF MA400 MG/5 M PO; +MUSCLE RUB CREA35 GM T; +SENNA-LAX8.6 MG PO; +TRIHEXYPHENIDYL2 M3 PO; +TYLENOL325 M1 PO; +VISTARIL50 MG PO
[2020-03-15 00:50] VITALS: BP 130/62
--- NOTE | 2020-03-15 00:50 | NUR ---
ERIS GORDON a 74 year old F admitted via stretcher from the ADMITTING as a emergency 72 hr. hold admission. Arrived on unit at 0050. ALLERGIES: HONEY, SULFA, BUSPIRONE, IODINE. Vital signs are: 97.3-60-16 130/62. The client DID NOT SIGN ANY OF the following forms: Authorization For The Release of Medical Information, Clothing List, Consent to Voluntary Admission and Hospitalization, Consent and Release Forms/Receipt of Rights, Acknowledgement of Advance Directive Information, Behavioral Health Consent Form, and Informed Consent of Medications. Admitted under the services of Dr[facility]. A search was conducted and hazardous articles were removed. Client was oriented to the unit. MIKEY GARCIA PATIENT FROM [facility]. PATIENT SEEN IN EMERGENCY ROOM FOR MEDICAL CLEARANCE AND PINK SLIP. PATIENT WITH SCATTERED BRUISING ON BILATERAL UPPER AND LOWER EXTREMITIES, HANDS, AND FINGERS AT VARIOUS STAGES OF HEALING. PATIENT WITH SCATTERED SCRATHCES ON BILATERAL UPPER AND LOWER EXTREMITIES AND RIGHT UPPER BUTTOCKS, PATIENT WITH REDDENED AND BLANCHABLE AREAS TO RIGHT SHOULDER, RIGHT LATERAL FOOT, AND LEFT INNER ANKLE. PATIENT WITH SEAT CUSHION, BILATERAL HEEL PROTECTORS AND ELBOW PROTECTORS, AND HYDRAGUARD ORDERED. PATIENT ASSISTED WITH TURNING AND REPOSITIONING.
--- NOTE | 2020-03-15 02:05 | NUR ---
DR STONER UPDATED ON [phone] FOR PATIENT ADMISSION. PATIENT UNDER DR LOAIZA FOR MEDICAL MANAGEMENT
--- NOTE | 2020-03-15 03:53 | NUR ---
DR CHANCE ON UNIT TO SEE PATIENT. DR CARVALHO AWARE OF SKIN ASSESSMENT ON ADMISSION AND ORDERS FOR BILATERAL HEEL PROTECTORS AND BILATERAL ELBOW PROTECTORS, SEAT CUSHION, AND HYDRAGUARD
--- NOTE | 2020-03-15 03:59 | NUR ---
PATIENT PRESENT WITH UPPER DENTURES AND GOLD JOHNATHAN GLASSES ON ADMISSION. PATIENT ALSO WITH SCAR TISSUE ON COCCYX AND BILATERAL HEELS SOFT, REDDENED, AND BLANCHABLE. DOCTOR AWARE
--- NOTE | 2020-03-15 05:15 | NUR ---
DR STONER ON UNIT TO SEE PATIENT
--- NOTE | 2020-03-15 06:03 | NUR ---
PATIENT SLEPT 4-5 HOURS OF INTERRUPTED SLEEP THROUGHOUT SHIFT. Q 15 MINUTE CHECKS MAINTAINED. 24 HR chart check completed.
[2020-03-15 06:30] LABS: BUN 23 mg/dl (7-24); CHLORIDE 109 mmol/L (98-107); CHOLESTEROL 130 mg/dL (<200); CREATININE 0.98 mg/dL (0.55-1.02); HDL CHOLESTEROL 29 mg/dl (40-60); LDL CHOLESTEROL 82 mg/dL (9-159); POTASSIUM 3.8 mmol/L (3.5-5.1); SODIUM 139 mmol/L (136-145); TRIGLYCERIDES 94 mg/dl (<150); VLDL CHOLESTEROL 19 mg/dL (6-40)
[2020-03-15 07:36] LABS: VITAMIN D, 25-HYDROXY 41.4 ng/mL (30-100)
--- NOTE | 2020-03-15 07:51 | NUR ---
PHYSICAL THERAPY Screen received admitted to the U from [facility] for increased agitation, please consult PT if pt has a decline in functional status from baseline,thank you. Amber Francisco PT
--- NOTE | 2020-03-15 07:55 | NUR ---
Patient eating breakfast in dining room with peers. Respirations easy and regular. Vital signs stable. No overt distress. REBEL,BARRY Pt non-compliant with skin prevention strategies, removing heel protector boots. Education provided.
--- NOTE | 2020-03-15 08:00 | NUR ---
on unit to see pt at this time, reviewed test results from ED re: head CT, cxray, urinalysis.
--- NOTE | 2020-03-15 08:34 | NUR ---
Nursing screen received and chart reviewed. Patient admitted for increased agitation from [facility]. If patient has a decline in ADLs, transfers, or functional mobility, please send OT orders. Thank you. Carole Saxena, OTR/L
[2020-03-15 08:52] VITALS: BP 130/72
--- NOTE | 2020-03-15 08:54 | NUR ---
Treatment Plan meeting was held this a.m. with Dr. Thibodeaux RN, HEEL BLACKER-S and Roller Leveler. Discussed Treatment Plan and Discharge Plans. Pt. will be here Short Term Stabalization. Pt. came to [facility] from [facility]. Will reach out to facility today to discuss discharge Plans.
--- NOTE | 2020-03-15 10:46 | NUR ---
DR. ALATORRE ON UNIT TO ASSESS PATIENT.
[2020-03-15 11:39] LABS: BILIRUBIN NEGATIVE (NEGATIVE); BLOOD NEGATIVE (NEGATIVE); CLARITY SL CLOUDY (CLEAR); COLOR YELLOW (YELLOW); GLUCOSE NEGATIVE (NEGATIVE); KETONE NEGATIVE (NEGATIVE); LEUKO ESTERASE NEGATIVE (NEGATIVE); NITRITE POSITIVE (NEGATIVE); PH 6.5 (5.0-9.0); SPECIFIC GRAVITY 1.015 (1.005-1.030); UROBILINOGEN 0.2 E.U./dl (0.2-1.0)
[2020-03-15 11:41] LABS: BACTERIA 3+
--- NOTE | 2020-03-15 11:56 | NUR ---
Group discussion today about simple pleasures in live. Pt was not present for group discussion. However, prior to group this marine underwriter spent individual time with pt. Pt was restless. Attempted to engage pt in a magnetic puzzle but pt voiced that it was too difficult. Engaged pt in use of foam building blocks to build a tower. Pt required encouragement and queuing with assistance from this marine underwriter to complete the task. Pt occassionally would call out "hello" with this marine underwriter sitting directly next to pt and would repeat phrases that this marine underwriter spoke. Pt did not display any aggressive or combative behaviors.
--- NOTE | 2020-03-15 14:24 | NUR ---
Afternoon activity group of patricio. Pt was present and assisted with the game by RN. Pt did sleep intermittently through the activity. Pt interacted minimally with staff and peers but was pleasant when doing so.
--- NOTE | 2020-03-15 15:38 | NUR ---
Shift chart check completed.
--- NOTE | 2020-03-15 15:45 | NUR ---
DR. MONAE NOTIFIED OF UA RESULTS.
--- NOTE | 2020-03-15 17:06 | NUR ---
P- Restlessness, repetitive calling out "hello" at times, poor PO intake, difficulty expressing self which leads to frustration for pt. I- Orientation, mood and behaviors assessed. Assessed for pt SI/HI, hallucinations, paranoia and/or delusions. Medications administered as per physician's orders. Assistance with ADL care provided with staff assist x2. Jean Claude lift for transfers. Skin prevention strategies implemented and pt's compliance encouraged. R- Pt is alert and oriented to person, place, year and situation. Resps easy and even on room air. Mood appears depressed with flat affect. Speech noted with word finding difficulties, pt appears to have trouble expressing herself at times which leads to increased frustration for patient. Pt noted to with repetitive speech, calls out "hello" and "help" despite staff or peers sitting beside her. Pt also states "I want to talk", again, despite the fact that staff and peers are sitting at the table with her. During dinner this RN overheard pt stating "I want to talk" and then pt engaged in appropriate conversation with female peer. While pt is speaking with female peer pt calls out "hello" and then states to peer "See? I'm back to yelling out 'hello' again". Pt has voiced to staff that she is aware she yells out for help at times but states "I don't know why I do that". Pt denies SI/HI, intent or plan. Pt denies hallucinations, no response to internal stimuli noted. No paranoia or delusions noted. Pt is calm and cooperative with HOC, no aggressive behaviors displayed. Pt noted with increased interactions with staff and peers as the day progresses and has stated "I'm feeling much better". Pt does appear restless at times, having difficulty sitting still. Pt with poor PO intakes, proper nutritional and fluid intakes encouraged by RN. Skin prevention strategies implemented, pt noncompliant, kicks off heel protectors despite education. Medication compliant. No distress noted. P- Plan to continue current treatment, continue to monitor mood and behaviors. Provide appropriate reorientation, redirection and 1:1 as needed. Continue to encourage medication compliance as well as group attendance and participation.
[2020-03-15 20:00] VITALS: BP 122/68
--- NOTE | 2020-03-15 22:59 | NUR ---
P-CONFUSION, WORD FINDING DIFFICULTIES I-PROVIDED REDIRECTION WITH 1:1 THERAPEUTIC COMMUNICATION AND INTERVENTIONS. PRESENTED REALITY NEEDED. ENCOURAGED AND EDUCATED PATIENT ABOUT MEDICATION AND COMPLIANCE R-PATIENT MEDICATION COMPLIANT AT HS. PATIENT REFUSED SNACK BUT PROVIDED FLUIDS AT HS. PATIENT USING SHORT SIMPLE RESPONSES WHEN COMMUNICATING WITH NURSING STAFF. PATIENT EDUCATED AND REDIRECTED ABOUT THE NEED FOR CONTINUED USE OF INTERVENTIONS USED TO HELP WITH PATIENT'S SKIN INTEGRITY. PATIENT NONCOMPLIANT THROUGHOUT SHIFT AND FREQUENTLY REMOVING BILATERAL HEEL PROTECTORS. PATIENT CONTINUES ON ANTIBIOTIC THERAPY FOR +UTI. NO ADVERSE REACTION AT THIS TIME. PATIENT INCONTINENT OF BLADDER THIS SHIFT. FLUIDS ENCOURAGED. PATIENT TURNED AND REPOSITIONED Q 2 HOURS PATIENT WITH NO HALLUCINATIONS OR DELUSIONS. PATIENT WITH NO SUICIDAL OR HOMICIDAL IDEATIONS. P-CONTINUE TO ENCOURAGE MEDICATION COMPLIANCE, CONTINUE TO PRESENT REALITY, ENCOURAGE GROUP THERAPY WHILE AWAKE
--- NOTE | 2020-03-16 05:50 | NUR ---
PATIENT SLEPT 8 HOURS OF UNINTERRUPTED SLEEP THROUGHOUT SHIFT. Q 15 MINUTE CHECKS MAINTAINED. 24 HR chart check completed.
[2020-03-16 07:58] VITALS: BP 129/70
--- NOTE | 2020-03-16 09:00 | NUR ---
Treatment Plan meeting was held this a.m. with NISHA Lawrence RN, TOOL CRIB SUPERVISOR-S and Educational Assistant Teacher. Plan for discharge next week. Pt. will return to [facility].
--- NOTE | 2020-03-16 12:29 | NUR ---
ADDIS MASTERSON CNP ON UNIT TO ASSESS PATIENT.
--- NOTE | 2020-03-16 14:23 | NUR ---
Pt was pleasant during interaction with this designer writer today. Pt is slow to respond but responded appropriately. Pt also engaged in conversation with her peers.
--- NOTE | 2020-03-16 15:25 | NUR ---
No adverse moods or behaviors this shift. Pt is alert and oriented to person, place, approximate time (month and year) and situation. Mild memory gaps. Resps easy and even on room air. Mood appears slightly depressed with blunted affect. Speech is more appropriate this date, less echoing and calling out noted. Able to make needs known without difficulty. No abnormal or involuntary movements noted. Pt denies SI/HI, intent or plan. Pt denies hallucinations, no response to internal stimuli noted. No paranoia or delusions noted. Pt is medication compliant without difficulty. PO intake significantly improved this date with pt's preferred foods given. Driking water well. No physically aggressive behaviors. No distress noted. Plan to continue current treatment.
--- NOTE | 2020-03-16 16:03 | NUR ---
Clinical Updates faxed to [facility].
[2020-03-16 19:41] VITALS: BP 124/74
[2020-03-17 07:51] VITALS: BP 130/64
--- NOTE | 2020-03-17 11:53 | NUR ---
notified of urine culture results. States she will review.
--- NOTE | 2020-03-17 12:39 | NUR ---
IV started right forearm with #22 protective cath after 1 attempts. Site prepped with Chloroprep. Sterile dressing applied. Patient tolerated procedure well. ARLEN FELDMAN
--- NOTE | 2020-03-17 16:20 | NUR ---
NO ADVERSE MOODS OR BEHAVIORS NOTED T/O SHIFT.PLEASANT AND COOPERATIVE WITH CARE. RESPS EASY ON RA. CURRENTLY SITTING IN CHAIR WATCHING TV. VOICES NO C/O. WILL CONTINUE TO MONITOR. CALL LIGHT IN REACH.
--- NOTE | 2020-03-17 16:23 | NUR ---
NO ADVERSE MOODS OR BEHAVIORS NOTED.PLEASANT AND COOPERATIVE WITH CARE.VOICES NO C/O. RESPS EASY ON RA. CURRENTLY SITTING IN CHAIR DINING ROOM WATCHING TV WITH OTHER PT'S. WILL CONTINUE TO MONITOR.
[2020-03-17 19:11] VITALS: BP 153/62
--- NOTE | 2020-03-17 23:03 | NUR ---
P-CONFUSION I-PROVIDED REDIRECTION WITH 1:1 THERAPEUTIC COMMUNICATION AND INTERVENTIONS. PRESENTED REALITY NEEDED. ENCOURAGED AND EDUCATED PATIENT ABOUT MEDICATION AND COMPLIANCE R-PATIENT MEDICATION COMPLIANT AT HS. PATIENT REFUSED SNACK BUT PROVIDED FLUIDS AT HS. PATIENT USING SHORT SIMPLE RESPONSES WHEN COMMUNICATING WITH NURSING STAFF. PATIENT EDUCATED AND REDIRECTED ABOUT THE NEED FOR CONTINUED USE OF INTERVENTIONS USED TO HELP WITH PATIENT'S SKIN INTEGRITY. PATIENT NONCOMPLIANT THROUGHOUT SHIFT AND FREQUENTLY REMOVING BILATERAL HEEL PROTECTORS. PATIENT CONTINUES ON ANTIBIOTIC THERAPY FOR +UTI. NO ADVERSE REACTION AT THIS TIME. PATIENT WITH PERIPHERAL IV IN RIGHT FOREARM INTACT WITH NO REDNESS, ELEVATED TEMPERATURE, OR EDEMA AT IV SITE. PATIENT INCONTINENT OF BLADDER THIS SHIFT. FLUIDS ENCOURAGED. PATIENT TURNED AND REPOSITIONED Q 2 HOURS PATIENT WITH NO HALLUCINATIONS OR DELUSIONS. PATIENT WITH NO SUICIDAL OR HOMICIDAL IDEATIONS. P-CONTINUE TO ENCOURAGE MEDICATION COMPLIANCE, CONTINUE TO PRESENT REALITY, ENCOURAGE GROUP THERAPY WHILE AWAKE
--- NOTE | 2020-03-18 06:50 | NUR ---
PATIENT SLEPT 9 HOURS OF UNINTERRUPTED SLEEP THROUGHOUT. Q 15 MINUTE CHECKS MAINTAINED. 24 HR chart check completed.
[2020-03-18 07:26] VITALS: BP 130/63
--- NOTE | 2020-03-18 17:38 | NUR ---
PT ALERT AND ORIENTED TO PERSON, PLACE, AND TIME. DENIES SADNESS AND DEPRESSION. STATES SHE IS EATING AND SLEEPING OK. DENIES SI/HI. WITHDRAWN TO SELF. WHILE PT WAS IN BED SHE WOULD YELL OUT HELLO. WHEN THIS NURSE WOULD ASK WHAT SHE NEEDED SHE WOULD STATE "NOTHING I JUST WANTED TO SAY HELLO." WHN THIS NURSE SAT WITH PATIENT IN THE DINNINGROOM SHE WOULD CONTINUALLY SAY WELL IF SHE WERE NERVOUS AND DIDNT KNOW WHAT TO SAY OR DO. INTERACTIVE WITH STAFF WITH STAFF INITIATES THE CONVERSATION. MEDICATION COMPLIANT WITHOUT DIFFICULTY. PT IS NONCOMPLIANT WITH HEEL PROTECTORS. NO CHANGE WITH SKIN ASSESSMENT. BEHAVIORS MONITORED WITH Q15 MINUTE SAFETY CHECKS. 22 GUAGE REMAINS INTACT TO RFA. IV PATENT AND NO S/S OF INFILTRATION. WILL CONTINUE TO MONITOR BEHAVIORS WITH Q15 MINUTE SAFETY CHECKS AND PROVIDE 1:1 FOR THERAPEUTIC COMMUNICATION. SEE [facility] FLOWSHEET FOR SPECIFIC MONITORING. PT IS VERY RESTLESS IN BED, TOSSING AND TURNING. WHEN PT WAS ASKED WHY SHE WAS TOSSING AND TURNING THE PT STATED SHE DIDNT KNOW BUT SHE WAS COMFORTABLE.
[2020-03-18 20:00] VITALS: BP 142/53
--- NOTE | 2020-03-18 23:46 | NUR ---
P-CONFUSION I-PROVIDED REDIRECTION WITH 1:1 THERAPEUTIC COMMUNICATION AND INTERVENTIONS. PRESENTED REALITY NEEDED. ENCOURAGED AND EDUCATED PATIENT ABOUT MEDICATION AND COMPLIANCE R-PATIENT MEDICATION COMPLIANT AT HS. PATIENT PROVIDED NOURISHMENT AND FLUIDS AT HS. PATIENT USING SHORT SIMPLE RESPONSES WHEN COMMUNICATING WITH NURSING STAFF. PATIENT EDUCATED AND REDIRECTED ABOUT THE NEED FOR CONTINUED USE OF INTERVENTIONS USED TO HELP WITH PATIENT'S SKIN INTEGRITY. PATIENT NONCOMPLIANT THROUGHOUT SHIFT AND FREQUENTLY REMOVING BILATERAL HEEL PROTECTORS. PATIENT CONTINUES ON ANTIBIOTIC THERAPY FOR +UTI. NO ADVERSE REACTION AT THIS TIME. PATIENT WITH PERIPHERAL IV IN RIGHT FOREARM INTACT WITH NO REDNESS, ELEVATED TEMPERATURE, OR EDEMA AT IV SITE. PATIENT INCONTINENT OF BLADDER THIS SHIFT. FLUIDS ENCOURAGED. PATIENT TURNED AND REPOSITIONED Q 2 HOURS. PATIENT WITH NO HALLUCINATIONS OR DELUSIONS. PATIENT WITH NO SUICIDAL OR HOMICIDAL IDEATIONS. P-CONTINUE TO ENCOURAGE MEDICATION COMPLIANCE, CONTINUE TO PRESENT REALITY, ENCOURAGE GROUP THERAPY WHILE AWAKE
--- NOTE | 2020-03-19 05:38 | NUR ---
Upon discharge recommend patient to follow up for wound care in outpatient setting continue current wound care orders at discharging facility.
--- NOTE | 2020-03-19 06:24 | NUR ---
PATIENT SLEPT 7-8 HOURS OF UMINTERRUPTED SLEEP THROUGHOUT SHIFT. Q 15 MINUTE CHECKS MAINTAINED. 24 HR chart check completed.
[2020-03-19 07:27] VITALS: BP 121/65
--- NOTE | 2020-03-19 09:00 | NUR ---
Treatment Plan meeting was held this a.m. with Dr. Thibodeaux via telephone, NISHA Lawrence, RN, AT, COOK CANDY-S and Ic Design Engineer in attendance. Plan for discharge Thu/. Pt. will return to [facility].
--- NOTE | 2020-03-19 09:36 | NUR ---
The patient has no complaints and is resting comfortably. PEDRO LUIS KULKARNI
--- NOTE | 2020-03-19 11:46 | NUR ---
AM GROUP PT ATTENDED MORNING GROUP THERAPY BUT CHOSE NOT TO PARTICIPATE IN ANY ACTIVITIES OFFERED. PT CHOSE TO WATCH. PT EXHIBITED NO ADVERSE BEHAVIORS WHILE IN GROUP.
--- NOTE | 2020-03-19 14:49 | NUR ---
Pt was pleasant this AM as she spoke with this production underwriter during breakfast. Pt was slow to speak but appropriate in conversation. No delusions or hallucinations were voiced by the pt during this time.
--- NOTE | 2020-03-19 15:40 | NUR ---
PM GROUP PT ATTENDED AFTERNOON GROUP THERAPY BUT CHOSE NOT TO PARTICIPATE IN ANY ACTIVITY OFFERED. PT WAS QUIET AND OBSERVANT. PT EXHIBITED NO ADVERSE BEHAVIORS WHILE IN GROUP
[2020-03-19 20:00] VITALS: BP 121/65
--- NOTE | 2020-03-19 22:29 | NUR ---
24 HR chart check completed.
--- NOTE | 2020-03-19 23:59 | NUR ---
PATIENT IS ALERT AND ORIENT TO PERSON, PLACE, TIME. IS PLEASANT. CONTINUES TO YELL OUT "HELLO" BUT WANTS NOTHING WHEN ASKED. IS MED COMPLIANT. DENIES SI/HI. NO DELUSIONS OR HALLUCINATIONS. DENIES DEPRESSION OR SADNESS. CONTINUE WITH 15 MINUTE SAFETY CHECKS. HAS #22 GAUGE HEP LOCK IN RT FOREARM. SITE UNREMARKABLE. NO S/S/INFILTRATION. REMAINS ON IV VANCO FOR TREATMENT OF UTI. WILL CONTINUE TO ENCOURAGE 1:1 AND MED COMPLIANCE.
--- NOTE | 2020-03-20 06:23 | NUR ---
PATIENT HAS SLEPT 8 HOURS UNINTURUPPTED. TOLERATED IVAB. RT F/A HEPLOCK INTACT AND PATENT WITH A GOOD BLOOD RETURN.
[2020-03-20 07:47] VITALS: BP 127/61
--- NOTE | 2020-03-20 09:00 | NUR ---
Treatment Plan meeting was held this a.m. with Dr. Thibodeaux, NISHA Lawrence, RN, AT, MEDICAL CODER-S and Composite Bond Worker in attendance. Plan for discharge Thu/. Pt. is Intermediate Care Resident who resides at [facility]. Pt. will return to facility.
[2020-03-20] MEDS ORDERED: MIRTAZAPINE15 M2 PO (10:02)
--- NOTE | 2020-03-20 11:41 | NUR ---
AM GROUP PT WAS PRESENT FOR MORNING GROUP THERAPY BUT CHOSE NOT TO PARTICIPATE IN ANY ACTIVITY OFFERED. PT WAS QUIET AND CONTENT TO OBSERVE OTHERS. PT EXHIBITED NO ADVERSE BEHAVIORS WHILE IN GROUP.
--- NOTE | 2020-03-20 15:36 | NUR ---
PM GROUP PT ATTENDED AFTERNOON GROUP THERAPY AND PARTICIPATED BY WATCHING THE MOVIE AND SOCIALIZING. PT WAS IN GOOD SPIRITS MAKING JOKES WITH STAFF. PT EXHIBITED NO ADVERSE BEHAVIORS WHILE IN GROUP
[2020-03-20 19:42] VITALS: BP 130/64
--- NOTE | 2020-03-20 22:59 | NUR ---
P-CONFUSION I-ASSESS ORIENTATION, MOOD, AND BEHAVIOR. PRESENT REALITY AND REORIENT. PROVIDE 1:1 WITH THERAPEUTIC INTERVENTIONS. ENCOURAGE MEDICATION COMPLIANCE AND EDUCATE. MONITOR SLEEP. R-PATIENT ALERT TO PERSON, APPROX PLACE AND TIME WITH CONFUSION. PT CALM, COOPERATIVE, AND INTERACTIVE THIS HS. NO ADVERSE BEHAVIORS NOTED. SAT IN DINING ROOM FOR HS SNACK AND TO WATCH A MOVIE. PT MEDICATION COMPLIANT WITHOUT DIFFICULTY, UNABLE TO EDUCATE DUE TO COGNITION. PT DENIES SI/HI, HALLUCINATIONS, OR PAIN. PT WITH UNSTEADY GAIT, UTILIZES A BARBARA CHAIR, X2 ASSIST WITH ADL'S, INCONTINENT/CONTINENT OF BOWEL AND BLADDER. PT CURRENTLY LAYING DOWN WITH EYES CLOSED, RESPIRATIONS EASY AND REGULAR, NO SIGNS OR SYMPTOMS OF DISTRESS NOTED. P-CONTINUE TO MONITOR MOOD AND BEHAVIORS. MAINTAIN Q 15 MIN CHECKS AND PRN FOR SAFETY.
--- NOTE | 2020-03-21 06:15 | NUR ---
PATIENT OBSERVED ON Q 15 MIN CHECKS TO HAVE SLEPT APPROX 7 HOURS WITH 1 BRIEF AWAKENING DUE TO A MEDICATION PASS. IV SITE REMAINS INTACT ON RIGHT ARM, ASYMPTOMATIC, FLUSHES EASILY. NO DISTRESS NOTED.
[2020-03-21 08:00] VITALS: BP 139/50
--- NOTE | 2020-03-21 09:00 | NUR ---
Treatment Plan meeting was held this a.m. with Dr. Thibodeaux via telephone, NSIHA Lawrence, RN, AT, PHOTOCOPYING EQUIPMENT MECHANIC-S and Drafter Patent in attendance. Plan for discharge . Pt. will return to [facility].
--- NOTE | 2020-03-21 11:16 | NUR ---
and team on unit to see pt at this time.
--- NOTE | 2020-03-21 11:37 | NUR ---
AM GROUP PT ATTENDED MORNING GROUP THERAPY AND PARTICIPATED BY LISTENING TO MUSIC AND SOCIALIZING WITH THIS ANIMAL CARE SUPERVISOR. FOR THE MOST PART PT WOULD PARROT WHAT I SAID OR A LINE TO THE MUSIC, BUT WHEN ENGAGED IN CONVERSATION, PT WAS ON TOPIC AND APPROPRIATE. PT EXHIBITED NO ADVERSE BEHAVIORS WHILE IN GROUP.
--- NOTE | 2020-03-21 14:56 | NUR ---
Pt was pleasant this AM as she sat at a table in a gerichair. Pt is slow to respond and will at times repeat what is spoken to her. Pt stated that she was feeling well. Pt then stated that she was wanting to speak to this fiction and nonfiction writer prose. Pt paused and then stated that she couldn't remember what she was to say. Remained with pt for a few minutes longer to allow pt time to speak. Pt smiled but did not offer further conversation or questions.
--- NOTE | 2020-03-21 15:28 | NUR ---
Transportation secured with [facility] to Transport with cloth picker time 12:30.
--- NOTE | 2020-03-21 15:38 | NUR ---
PM GROUP/LEISURE INTERESTS PT ATTENDED AFTERNOON GROUP THERAPY AND PARTICIPATED IN A GAME OF CorebookEE AND SOME TRIVIA. PT ENJOYED LISTENING TO THE MUSIC ALSO. PT DID SOME MIMICING, BUT NOT MUCH THIS MORNING. PT EXHIBITED NO ADVERSE BEHAVIORS WHILE IN GROUP
[2020-03-21 20:00] VITALS: BP 148/54
--- NOTE | 2020-03-21 22:04 | NUR ---
Patient alert and oriented to person,approx.place and time with confusion noted. Patient calm and cooperative. No overt s/s of responding to internal stimuli noted at this time. Patient compliant with HS medications without any difficulty. Provided 1:1 for emotional support. Redirected/reoriented when needed. Plan to continue to encourage medication compliance. Also continue to offer emotional support and continue to redirect/reorient when needed/appropriate. Will continue to monitor moods/behaviors. Q 15 minute safety checks continued and maintained. See [facility] flowsheet for further documentation.
--- NOTE | 2020-03-22 05:47 | NUR ---
Patient slept approx. 8 hours throughout shift. Q 15 minute safety checks continued and maintained.
[2020-03-22 07:51] VITALS: BP 133/56
--- NOTE | 2020-03-22 09:00 | NUR ---
Treatment Plan meeting was held this a.m. with Dr. Thibodeaux, RN, AT, NEWS ANCHOR-S and Oil Field Technician. Plan for discharge today with return to [facility]. Transportation arranged with [facility] to transport with fruit or nut picker time 12:30 p.m. Spoke with Pt. Sister Monse this a.m. and informed her of Discharge and Assisted Pt. to speak with her Sister via telephone.
--- NOTE | 2020-03-22 09:37 | NUR ---
DR. SMITH OF PATIENT BEING DISCHARGED TODAY.
--- NOTE | 2020-03-22 10:49 | NUR ---
DR. ALATORRE ON UNIT TO ASSESS PATIENT.
--- NOTE | 2020-03-22 11:23 | NUR ---
Pt pleasant this AM during interaction with this science writer. Pt's responses are delayed but appropriate. No delusions or hallucinations were voiced by pt during interaction.
--- NOTE | 2020-03-22 11:24 | NUR ---
Patient is discharging today returning to [facility] where pt is a long-term care resident. Follow-up will be with Dr Thibodeaux, visiting psychiatrist. While at [facility], pt's behaviors improved. Pt was pleasant and cooperative with staff and peers. Pt did participate in programming.
--- NOTE | 2020-03-22 11:45 | NUR ---
AM GROUP PT WAS PRESENT FOR MORNING GROUP THERAPY AND REQUESTED TO LISTEN TO COUNTRY MUSIC SHE WAITED TO BE DISCHARGED FROM THE UNIT. PT EXHIBITED NO ADVERSE BEHAVIORS WHILE IN GROUP AND WAS ANXIOUS FOR HER RIDE TO LEAVE.
--- NOTE | 2020-03-22 11:51 | NUR ---
NURSE TO NURSE REPORT GIVEN TO ROBER AT [facility].
--- NOTE | 2020-03-22 13:20 | NUR ---
AMBULANCE SERVICE PRESENT WITH SECURITY. PATIENT ASSISTED ON TO [facility]. ALL BELONGING GATHERED AND DISCHARGE INSTUCTIONS SENT WITH PATIENT OFF UNIT.
== END 2020-03-22 13:16 | DRG 885 ==
LOC: 3N 00:18
PROVIDERS: Student in an Organized Health Care Education/Training Program; ADMIT Psychiatry & Neurology Psychiatry
DX: F33.3 Major depressive disorder, recurrent, severe with psychotic symptoms (principal); N17.0 Acute kidney failure with tubular necrosis; F03.91 Unspecified dementia, unspecified severity, with behavioral disturbance; N30.00 Acute cystitis without hematuria; E11.22 Type 2 diabetes mellitus with diabetic chronic kidney disease; I13.10 Hypertensive heart and chronic kidney disease without heart failure, with stage 1 through stage 4 chronic kidney disease, or unspecified chronic kidney disease; N18.3 Chronic kidney disease, stage 3 (moderate); K21.9 Gastro-esophageal reflux disease without esophagitis; D75.89 Other specified diseases of blood and blood-forming organs; D69.6 Thrombocytopenia, unspecified; E87.8 Other disorders of electrolyte and fluid balance, not elsewhere classified; I48.91 Unspecified atrial fibrillation; E78.5 Hyperlipidemia, unspecified; Z20.828 Contact with and (suspected) exposure to other viral communicable diseases; M17.10 Unilateral primary osteoarthritis, unspecified knee; F41.9 Anxiety disorder, unspecified; R29.6 Repeated falls; G47.00 Insomnia, unspecified; K72.10 Chronic hepatic failure without coma; I25.10 Atherosclerotic heart disease of native coronary artery without angina pectoris; F43.10 Post-traumatic stress disorder, unspecified; Z88.5 Allergy status to narcotic agent; Z88.2 Allergy status to sulfonamides; Z91.048 Other nonmedicinal substance allergy status

== ENCOUNTER 2020-06-04 15:07 | Inpatient (IN) | payer MEDICARE, MEDICAID ==
[~2020-06-04] VITALS: Wt 46.3 kg
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
--- NOTE | 2020-06-04 14:25 | NUR ---
PER REGISTRATION PT INSURANCE IS GOOD.
--- NOTE | 2020-06-04 14:30 | NUR ---
SPOKE TO DR JACINTO ABOUT REFERRAL. RECEIVED N.O. TO ADMIT PT WITH DX MAJOR DEPRESSION RECURRENT SEVERE AND PTSD.
[2020-06-04] MEDS ORDERED: HALDOL5 MG/1 ML IM (15:20)
[2020-06-04] MEDS ORDERED: VISTARIL50 MG PO (15:28)
--- NOTE | 2020-06-04 18:05 | NUR ---
ERIS GORDON a 74 year old F admitted via stretcher from the ADMITTING as a voluntary admission. Arrived on unit at 1805. ALLERGIES: SULFA, NSAIDS, HONEY, IODINE, BUSPAR. Vital signs are: [id number] 118/53. The POA gave verbal consent for the following forms with stated understanding: Authorization For The Release of Medical Information, Clothing List, Consent to Voluntary Admission and Hospitalization, Consent and Release Forms/Receipt of Rights, Acknowledgement of Advance Directive Information, Behavioral Health Consent Form, and Informed Consent of Medications. Admitted under the services of Dr. OPHELIA BARBER,[facility]. A search was conducted and hazardous articles were removed. Client was oriented to the unit. PEDRO LUIS KULKARNI
--- NOTE | 2020-06-04 18:38 | NUR ---
CALL PLACED TO HOSPITALIST CELL #1 WITH NO ANSWER. CALL PLACED TO DR BRAN ON CENSUS PAPER AT [phone] WITH NO ANSWER. CALL PLACED TO DR ALATORRE AND SPOKE TO DR STONER AT [phone] AND NEW ORDER TO PLACE CONSULT UNDER DR BRAN.
[2020-06-04 18:42] VITALS: BP 118/53
[2020-06-04 18:45] VITALS: BP 118/53
--- NOTE | 2020-06-04 18:49 | NUR ---
pt arrived on the unit at 1805 with 3 freight service inspector and security monitor. pt sleeping. transferred from stretcher to [facility] chair x4 assist. emt stated pt received 5 mg haldol at noon at the facility. pt easily awakened and will answer questions with a yes or no and then go back to sleep. pt refused skin assessment. pt stated she has upper dentures however would not show the nurses.
[2020-06-04 19:29] VITALS: BP 118/53
[2020-06-04 19:46] VITALS: BP 118/53
[2020-06-04 20:32] VITALS: BP 126/72
--- NOTE | 2020-06-04 21:30 | NUR ---
P: PATIENT IS IRRITABLE, HOPELESS/HELPLESS, AGITATED, AND NO LONGER WANTS TO LIVE. I: ONE ON ONE FOR EMOTIONAL SUPPORT. PROVIDE SPACE NEEDED. REORIENT/REDIRECT NEEDED. ENCOURAGE MEDICATION COMPLIANCE. R: EFFECTIVE. PATIENT IS ALERT AND ORIENTED TO PERSON, TIME AND SITUATION. UPON ASSESSING PATIENT, SHE IS INITIALLY IRRITABLE AND AGITATED. PATIENT WAS MOCKING STAFF AT THIS TIME. PATIENT WAS OFFERED A BED TIME SNACK AND ATE 100% OF IT. PATIENT THEN BECAME A LITTLE MORE FRIENDLY AND COOPERATIVE. PATIENT DENIES SI/HI, HOWEVER STATES SHE DOES NOT WANT TO LIVE ANY LONGER AND SAYS SHE HAS FELT THAT WAY FOR A VERY LONG TIME. PATIENT WAS PARTICIPATIVE AT THIS TIME. PATIENT DOES FEEL HOPELESS/HELPLESS BUT DENIES ANY SADNESS/DEPRESSION/ANXIETY. PT IS MEDICATION COMPLIANT. INTAKES ARE GOOD WITH ADEQUATE FLUIDS. PATIENT WAS A 2 ASSIST TO TRANSFER TO BED. PATIENT WAS INCONTIENT OF BOWEL AND BLADDER. ' P: Q 15 MINUTE SAFETY CHECKS MAINTAINED. WILL CONTINUE TO ENCOURAGE MEDICATION COMPLIANCE, WILL ENCOURAGE GROUP ACTIVITES. WILL PROVIDE ONE ON ONE FOR EMOTIONAL SUPPORT, AND WILL PROVIDE SPACE NEEDED. WILL CONITNUE TO MONITOR MOODS/BEHAVIORS.
--- NOTE | 2020-06-04 22:02 | NUR ---
SPOKE TO DR OCAMPO AND MADE HIM AWARE OF PATIENTS WOUND TO HER COCCYX. AWAITING WOUND ORDERS.
--- NOTE | 2020-06-05 04:09 | NUR ---
PATIENT RESTING IN BED COMFORTABLY, ASSISTED PATIENT WITH TURN AND REPOSITIONING. Q 15 MINUTE SAFETY CHECKS MAINTAINED.
[2020-06-05 06:21] LABS: MEAN CELL VOLUME 105.5 fl (81.0-99.0); MEAN CORPUSCULAR HGB CONC 32.3 g/dl (33.0-37.0); MEAN PLATELET VOLUME 13.4 fl (9.6-12.3); PLATELET COUNT AUTOMATED 82 10*3/uL (130-400); RED BLOOD COUNT 3.79 10*6/uL (4.10-5.10); RED CELL DISTRI WIDTH 14.2 % (0-14.5); WHITE BLOOD COUNT 7.1 10*3/uL (4.8-10.8)
[2020-06-05 06:34] LABS: ALBUMIN 3.3 gm/dl (3.1-4.5); ALKALINE PHOSPHATASE 53 U/L (45-117); BUN 20 mg/dl (7-24); CHLORIDE 105 mmol/L (98-107); CHOLESTEROL 114 mg/dL (<200); CREATININE 0.93 mg/dL (0.55-1.02); HDL CHOLESTEROL 28 mg/dl (40-60); LDL CHOLESTEROL 63 mg/dL (9-159); SGOT/AST 17 IU/L (3-35); SGPT/ALT 12 U/L (12-78); SODIUM 138 mmol/L (136-145); TOTAL PROTEIN 7.5 gm/dL (6.4-8.2); TRIGLYCERIDES 117 mg/dl (<150); VLDL CHOLESTEROL 23 mg/dL (6-40)
[2020-06-05 07:26] LABS: VITAMIN D, 25-HYDROXY 46.6 ng/mL (30-100)
[2020-06-05 07:41] VITALS: BP 116/54
[2020-06-05 07:47] LABS: ATYPICAL LYMPHS 6 % (0-0); PLATELET SUFFICIENCY LOW (NORMAL); TOTAL CELLS COUNTED 100 #CELLS
--- NOTE | 2020-06-05 08:00 | NUR ---
PHYSICAL THERAPY Screen and PT eval received will follow thank you Amber Francisco PT
--- NOTE | 2020-06-05 09:00 | NUR ---
Treatment Plan meeting was held this a.m. with NISHA Lawrence RN, BIOSTATISTICS MANAGER-S and Tourist Adviser in attendance. Plan for discharge Next week. Pt. came to [facility] from [facility]. Will reach out to facility today to discuss discharge Planning.
--- NOTE | 2020-06-05 10:05 | NUR ---
CALL PLACED TO LOC JOHN. EXPLAINED TO THE POA ABOUT THE PATIENTS WOUND TO HER COCCYX. EXPLAINED THE PROCEDURE OF DEBRIDMENT AND ASKED THE POA IF SHE WOULD LIKE THIS PROCEDURE DONE AT THIS TIME. ALVARO STATED SHE WOULD PREFER THE PROCEDURE WAS NOT COMPLETED AT THIS TIME DUE TO THE PATIENTS CURRENT CONDITION. CALL PLACED TO NAHID IN WOUND CARE AND UPDATED HER ON THE POA'S DECISIONAT THIS TIME. NAHID STATED SHE WOULD LET THE SCHOOL VOCATIONAL EDUCATOR KNOW.
--- NOTE | 2020-06-05 10:22 | NUR ---
PT SITTING AT A TABLE IN THE DINNINGROOM. AFFECT IS SAD. MOOD IS DEPRESSED AND HOPELESS/HELPLESS. PT GIVING SHORT ANSWERS WHEN ASKED QUESTIONS. PT REFUSING ALL ACTIVITIES THAT ARE PRESENTED TO HER. NON SLIP SOCKS INTACT. SEAT CUSHION AND HEEL PROTECTORS INTACT. ASKED THE PT IF SHE HAD TO USE THE RESTROOM AND PT STATED SHE CAN NOT TELL WHEN SHE GOES OR IF SHE IS WET. [facility] PROVIDED WHEN NEEDED. PT REFUSES TO TALK TO THIS NURSE REGARDING HER FEELINGS. WILL CONTINUE TO REAPPROACH AND OFFER 1:1 FOR THERAPEUTIC COMMUNICATION.
--- NOTE | 2020-06-05 11:12 | NUR ---
[facility] PROVIDED WITH 2 ASSIST. PT 2 ASSIST WITH TRANSFERS. NEW DRESSING APPLIED. PT INCONTINENT AT THIS TIME. PT REQUESTED TO STAY IN BED. HEEL PROTECTORS IN PLACE. PT PLACED ON SIDE AT THIS TIME.
--- NOTE | 2020-06-05 12:10 | NUR ---
Spoke with Kristina Barney at [facility]. Pt. is Outgoing Inspector Care and Will return at discharge.
--- NOTE | 2020-06-05 12:11 | NUR ---
NASAL SWAB COLLECTED FOR COVID 19 AND TOLERATED WELL.
--- NOTE | 2020-06-05 14:45 | NUR ---
Difficult to engage pt in conversation as pt sat in the activity room. Offered both closed and open ended questions to pt. Pt responded primarily with one word replies. Encouraged pt to talk and express her thoughts and emotions. For the most part, pt remained silent. However, pt did share that she has no interest in anything. Pt made no eye contact with this advertising copywriter.
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
--- NOTE | 2020-06-05 18:27 | NUR ---
URINE SPECIMEN COLLECTED VIA STRAIGHT CATH, TOLERATED WELL AND SENT TO LAB.
[2020-06-05 18:40] LABS: BILIRUBIN Negative (Negative); BLOOD Negative (Negative); CLARITY Clear (Clear); COLOR Dark Yellow (Yellow); GLUCOSE Negative (Negative); KETONE Negative (Negative); LEUKO ESTERASE Negative (Negative); NITRITE Negative (Negative); PH 5.5 (4.5-8.0)
[2020-06-05 18:53] LABS: BACTERIA TRACE; MUCOUS 1+; RBC 0-2 rbc/hpf (0-2)
[2020-06-05 19:49] VITALS: BP 138/52
--- NOTE | 2020-06-05 20:14 | NUR ---
IN BED. REFUSES SNACK AND 1:1. DENIES ANY PROBLEMS. REFUSES ORAL CARE. DIAPER DRY AT THIS TIME. WILL CONTINUE TO MONITOR FOR CHANGES IN MOOD/BEHAVIOR AND MONITOR Q 15 MINS AND PRN FOR SAFETY
--- NOTE | 2020-06-05 21:16 | NUR ---
THREW PILLOW ON FLOOR. STATES SHE DOESN'T WANT IT. REMINDED HER THAT THROWING THINGS ON FLOOR IS PART OF WHY SHE WAS ADMITTED. REINFORCED ASKING STAFF FOR ASSISTANCE OR PLACING PILLOW ON SIDE OF BED. VERBALIZED UNDERSTANDING. HEEL PROTECTORS REAPPLIED.
--- NOTE | 2020-06-06 04:30 | NUR ---
24 HR chart check completed.
[2020-06-06 05:06] LABS: RBC, FOLATE HEMATOCRIT 38.9 % (34.0-46.6)
--- NOTE | 2020-06-06 06:56 | NUR ---
ALLYSON CARE DONE. CLIENT DID NOT VOID OVERNIGHT. ENCOURAGED HER TO INCREASE HER FLUIDS. SHE DENIES FEELING LIKE SHE NEEDS TO GO. DRESSED AND TAKEN TO DININGROOM. BODY ALARM ON. SEAT IN CHAIR. HEEL PROTETORS ON
[2020-06-06 07:21] VITALS: BP 109/65
[2020-06-06 08:06] VITALS: BP 118/64
--- NOTE | 2020-06-06 09:00 | NUR ---
Treatment Plan meeting was held this a.m. with NISHA Lawrence RN and Lead Fire Protection Engineer. Plan for discharge Next Week. Pt. will return to [facility].
--- NOTE | 2020-06-06 09:10 | NUR ---
PHYSICAL THERAPY Physical Therapy evaluation completed on 3N with full evaluation to follow. Moderate complexity skilled PT evaluation per chart review and evaluation, [id number]. Recommend physical therapy per plan of care and return to LTC upon discharge. Thank you for this referral. Isabela Irizarry,PT,DPT
--- NOTE | 2020-06-06 10:50 | NUR ---
Occupational Therapy evaluation completed on three with full evaluation to follow. Recommend occupational therapy per plan of care and return to LTC upon discharge. Thank you for this referral. Carole Saxena OTR/L
--- NOTE | 2020-06-06 11:27 | NUR ---
Clinical Updates faxed to [facility].
--- NOTE | 2020-06-06 12:24 | NUR ---
P: PT MOOD IS LABILE, IRRITABLE WITH STAFF AT TIMES. PT ISOLATIVE TO SLEF THROUHGOUT THE DAY, WILL ONLY SPEAK WHEN SPOKEN TO USING SHORT ONE WORD ANSWERS. PT HAS POOR PO INTAKE. I: PROVIDE EMOTIONAL SUPPORT AND 1:1 FOR PT TO VOICE FEELINGS, ENCOURAGE PO INTAKE, ASSESS FOR SUICIDAL THOUGHT OR BEHAVIORS, ASSESS FOR HALLUCINATIONS OR DELUSIONS. R: PT ALERT TO PERSON, PLACE, TIME AND SITUATION. PT MED COMPLIANT WITHOUT DIFFICULTY, MED EDUCATION PROVIDED. PT CALM, REMAINS LABILE AND IRRITABLE, CONTINUES TO ISOLATE TO SELF. PT DENIES ANY SUICIDAL THOUGHTS, WHEN ASKED IF SHE IS SAD OR DEPRESSED PT STATED "NOT REALLY". NO HALLUCINATIONS OR DELUSIONS NOTED. PT UP TO WHEELCHAIR, REQUIRES 2 STAFF ASSIST FOR TRANSFERS AND CARE. PT INCONTINENT OF BOWEL AND BLADDER, CARE PROVIDED NEEDED. PT CONTINUES TO HAVE POOR PO INTAKE, REFUSES TO ORDER MEALS WITH DIETARY AND THEN YELLS OUT WHEN SHE DOESN'T LIKE WHAT IS SENT TO HER. STAFF ATTEMPTS TO ACCOMODATE PT WANTS RE: MEALS, PT STATED "I'LL EAT MY ICE CREAM AND MY CAKE, I DON'T WANT NO TUNA." WHEN ATTEMPTED TO ASK PT TO IDENTIFY OTHER FOODS SHE WILL EAT, PT REFUSED. P: CONTINUE TO ENCOURAGE PO INTAKE, ENCOURAGE PT TO VOICE WHICH FOODS SHE WOULD LIKE TO EAT, MONITOR PT BEHAVIORS ON Q15 MIN SAFETY CHECKS, ENCOURAGE MED COMPLIANCE AND PROVIDE MED EDUCATION, ENOCURAGE GROUP PARTICIPATION AND SOCIALIZATION.
--- NOTE | 2020-06-06 14:45 | NUR ---
Attempted to engage pt in conversation this afternoon. Pt provided only brief answers to questions. Pt was not spontaneous in conversation. Pt did not make eye contact with this movie writer. Pt's affect was flat.
[2020-06-06 20:00] VITALS: BP 133/83
--- NOTE | 2020-06-06 20:45 | NUR ---
P-INTRUSIVE/DISRUPTIVE. I-ASSESSED ORIENTATION,MOOD, SI/HI, AND HALLUCINATIONS. PROVIDED EMOTIONAL SUPPORT, AND REDIRECTION NEEDED. HS SNACK OFFERED AND FLUIDS. ADLS X2 ASSIST. R-PT ALERT TO SELF, PLACE, TIME AND SITUATION. DENIES SI/HI, AND HALLUCINATIONS. PT ACCEPTED EMOTIONAL SUPPORT AND REDIRECTION. PT CONTINUES LILIA DISRUPTIVE WHEN STAFF IS WITH OTHER REDIDENTS. ATE 100% OF HS SNACK AND FLUIDS. ASSISTED TO BED X2 STAFF, INCONTINENT OF BLADDER, PROVIDED INCONTINENCE CARE NEEDED. P-WILL CONTINUE TO MONITOR MOODS, BEHAVIORS AND HALLUCINATIONS. Q 15 IN CHECKS MAINTAINED AND PRN.
--- NOTE | 2020-06-06 22:45 | NUR ---
REFUSED TO BE CHECKED FOR INCONTINENCE OR REPOSITIONING.
--- NOTE | 2020-06-06 23:15 | NUR ---
P-INTRUSIVE/DISRUPTIVE. I-ASSESSED ORIENTATION,MOOD, SI/HI, AND HALLUCINATIONS. PROVIDED EMOTIONAL SUPPORT, AND REDIRECTION NEEDED. HS SNACK OFFERED AND FLUIDS. ADLS X2 ASSIST. R-PT ALERT TO SELF, PLACE, TIME AND SITUATION. DENIES SI/HI, AND HALLUCINATIONS. PT ACCEPTED EMOTIONAL SUPPORT AND REDIRECTION. PT CONTINUES TO BE DISRUPTIVE WHEN STAFF IS WITH OTHER REDIDENTS. ATE 100% OF HS SNACK AND FLUIDS. ASSISTED TO BED X2 STAFF, INCONTINENT OF BLADDER, PROVIDED INCONTINENCE CARE NEEDED. P-WILL CONTINUE TO MONITOR MOODS, BEHAVIORS AND HALLUCINATIONS. Q 15 IN CHECKS MAINTAINED AND PRN.
--- NOTE | 2020-06-07 01:00 | NUR ---
ASSISTED X2 STAFF, INCONTINENT OF URINE, PROVIDED INCONTINENCE CARE AND REPOSITIONED.
--- NOTE | 2020-06-07 05:38 | NUR ---
PT SLEPT PAST 2144 WITH BRIEF AWAKENINGS FOR INCONTINENCE CARE AND REPOSITIONING. 24 HR chart check completed.
[2020-06-07 07:18] VITALS: BP 112/62
--- NOTE | 2020-06-07 07:20 | NUR ---
OT NOTE Prior to coming to the floor spoke with nurse Hernandez and reported that therapy was coming to treat this pt. Nurse gave approval. Pt was seen this A.M. 1:1 for 15 minute OT session with OFFICE CLINICIAN and nursing staff present for observation only. Upon arrival pt was sitting upright in the w/c in the dining jimenez. Pt identified by name and and had no complaints at this time. Pt was taken to the hallway where she completed multiple sit to stand transfers from chair level with modA X 2 and use of hand rail for UE support. Challenged pt's static standing tolerance needed for increased I in self care tasks and functional transfers. Pt was able to tolerate aprox 20-30 seconds at a time before sitting due to fatigue. Throughout pt required assist for proper foot placement and knee extension. Pt was left sitting upright in the w/c in the dining jimenez with body alarm activated for safety and under [facility] staff supervision. Continue with rec D/C plan to LTC. FRAN Oliveros
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
--- NOTE | 2020-06-07 09:00 | NUR ---
Treatment Plan meeting was held this a.m. with Dr. Thibodeaux RN, FLIGHT ATTENDANT INFLIGHT SERVICES-S and Private Advisor. Plan for discharge Next Week. Pt. will return to [facility].
--- NOTE | 2020-06-07 09:06 | NUR ---
PT PLACED IN LINE OF SIGHT PER DR JACINTO'S ORDERS. [facility] DIRECTOR/NURSING ACTUARIAL ASSISTANT UPDATED.
--- NOTE | 2020-06-07 09:25 | NUR ---
PHYSICAL THERAPY TREATMENT TIME: OUT 07:25 AM 15 MINUTES TOTAL Patient presented to therapy in W/C in activity room at table. Patient gives informed consent for treatment. Patient was identified by name and on wristband. Patient has no complaints. Patient performed STS from W/C with MOD A X 2 and verbal cues for hand placement. Patient stood at railing in hallway for 1st attempt) 30 sec 2nd) 28 sec 3rd) 12 sec with CGA - MIN A X 1. Patient STS 2 other times with MOD A X 2. Patient attempted ambulation but was unable to advance LEs and her LEs shelby very quickly < 10 seconds standing. Patient required MOD A X 2 - MAX A X 2 to keep patient standing for < 10 seconds time. NELDA CHU WAS PRESENT WITNESS TO THIS TREATMENT. Patient did performed seated bilateral LAQs x 10 reps each, but did require AAROM. Patient was left in W/C in activity room in front of table with U staff present. Patient has chair alrm attached to patient. Patietn was 1:1 with this SENIOR UNIX ADMINISTRATOR for 15 minutes total. ELIANE GAGNON SENIOR UNIX ADMINISTRATOR
--- NOTE | 2020-06-07 11:13 | NUR ---
Nutritional Support Services Note: Appetite is poor for meals, needs much encouragement to eat. Regular diet as ordered with Ensure po tid with meals. Staff to honor pt food preferences. Wounds noted on admission. Will follow as needed. Tiana Queen Rdn Ld
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
[2020-06-07 20:00] VITALS: BP 122/84
--- NOTE | 2020-06-08 01:27 | NUR ---
P-INTRUSIVE/DISRUPTIVE. HOPELESS/HELPLESS. YELLS OUT FOR HELP INTERMITTENTLY. I-ASSESSED ORIENTATION,MOOD, SI/HI, AND HALLUCINATIONS. PROVIDED EMOTIONAL SUPPORT, AND REDIRECTION NEEDED. HS SNACK REFUSED AND FLUIDS ACCEPTED. ADLS X2 ASSIST. R-PT ALERT TO SELF, PLACE, TIME AND SITUATION. DENIES SI/HI, AND HALLUCINATIONS. PT ACCEPTED EMOTIONAL SUPPORT AND REDIRECTION. PT CONTINUES TO BE DISRUPTIVE WHEN STAFF IS WITH OTHER REDIDENTS. ASSISTED TO BED X2 STAFF, INCONTINENT OF BLADDER, PROVIDED INCONTINENCE CARE NEEDED. PT ASKED WHAT SHE NEEDS HELP WITH AND PT REPORTS SHE DOESN'T KNOW WHY SHE IS SAYING IT. PT DENIED NEEDING ANY ASSISTANCE EACH TIME SHE YELLED OUT. P-WILL CONTINUE TO MONITOR MOODS, BEHAVIORS AND HALLUCINATIONS. Q 15 IN CHECKS MAINTAINED AND PRN.
--- NOTE | 2020-06-08 06:12 | NUR ---
PT SLEPT PAST 2200, BRIEF AWAKENINGS FOR INCONTINENCE CARE AND REPOSITIONING.
--- NOTE | 2020-06-08 07:19 | NUR ---
OT NOTE Prior to coming to the floor spoke with nursing staff and reported that therapy was coming to treat this pt. Nursing staff gave approval. Pt was seen this A.M. 1:1 for 19 minute OT session with PRODUCT APPLICATIONS SCIENTIST and nursing staff present for observation only. Upon arrival pt was sitting upright in the kwadwo chair in the dining jimenez. Pt identified by name and and had no compplaints at this time. Pt was taken out to the hallway where she completed multiple sit to stand transfers from chair level with maxA X 2 and use of hand rail for UE support. Challenged pt's static standing tolerance needed for increased I in self care tasks and functional transfers. Pt was able to tolerate aprox 10-15 seconds before sitting due to fatigue. Pt was then taken to her room where she completed sit to stand transfer from chair level with maxA X 2 followed by standing pivot to the EOB with maxA X 2. While sitting EOB pt presented with P- sitting balance requiring maxA to correct R lateral and retrograde lean. Pt tolerated sitting EOB for aprox 2 minutes with maxA before becoming aggitated. Pt transferred sit to stand from bed level with maxA X 2 followed by standing pivot to the chair with maxA X 2. Pt was left sitting upright in the kwadwo chair in the dining jimenez under [facility] staff supervision. COntinue with rec D/C plan to LTC. NELDA Oliveros/Shannan
[2020-06-08 07:43] VITALS: BP 112/68
--- NOTE | 2020-06-08 09:00 | NUR ---
Treatment Plan meeting was held this a.m. with Dr. Thibodeaux via telephone, AGRICULTURAL ADVISER Melinda, RN, AT, DOUGHNUT ICER MACHINE-S and Steel Burner in attendance. Plan for discharge Next Week. Pt. will return to [facility].
--- NOTE | 2020-06-08 10:28 | NUR ---
PHYSICAL THERAPY TREATMENT TIME: IN 07:08 AM 15 MINUTES TOTAL Patient presented to therapy in sitting in W/C at table in activity room with no complaints. Patient gives informed consent for treatment. Patient was identified by name and on wristband. Patient performed STS from W/C with MAX A X 2. Patient does not follow commands for hand placeemnt, locking knees into extension or upright posture. Patient perofmred standing tolerance at handrail in hallway for 1st attemot) 20 seconds 2nd attmpt) < 10 sec 3rd attempt) < 10 sec with MAX A X 2 all three attempts. Patient SPT from W/C to EOB with MAX A X 2. Patient attempted to sit on EOB, but required MAX A X 1 to keep her upright. Patient performed STS from EOB and SPT back to W/C with MAX A X 2. Patient was left in activity room in W/C with chair alarm on and with U staff present. Patient was 1:1 with this HOSPITAL AIDE for 15 minutes total. ELIANE GAGNON HOSPITAL AIDE
--- NOTE | 2020-06-08 13:12 | NUR ---
Pt sitting in activity room early this afternoon intermittently calling out "hello." Reassured pt shea she was not alone and attempted to have conversation with pt. Pt responded minimally.
--- NOTE | 2020-06-08 13:24 | NUR ---
PHYSICAL THERAPY CO-SIGN I approve of the Physical Therapy notes written above. Amber Francisco PT
--- NOTE | 2020-06-08 14:25 | NUR ---
OCCUPATIONAL THERAPY CO-SIGN I approve of the Occupational Therapy notes written above. Anyi Krishnamurthy OTR/L
--- NOTE | 2020-06-08 14:49 | NUR ---
Clinical Updates faxed to [facility].
--- NOTE | 2020-06-08 17:50 | NUR ---
DR STONER NOTIFIED OF PATIENT HAVING A SCANT AMOUNT OF VAGINAL BLEEDING. CMP/CBC ORDERED FOR 529 TOMORROW.
[2020-06-08 19:31] VITALS: BP 135/56
--- NOTE | 2020-06-08 21:53 | NUR ---
P-YELLING OUT, DEMANDING, INTRUSIVE I-REDIRECTION WITH 1:1 THERAPEUTIC INTERVENTIONS AND PRESENT REALITY. EDUCATE AND ENCOURAGE MEDICATION COMPLIANCE R-PATIENT MEDICATION COMPLIANT WITH THE MEDICATION THAT WAS AVAILABLE AT HS. NOURISHMENT AND FLUIDS PROVIDED AT HS. PATIENT WITH SCANT AMOUNT OF VAGINAL BLOODY DISCHARGE. MD ON PREVIOUS SHIFT AWARE AND LAB WORK ORDERED FOR THE AM. PATIENT YELLING OUT "HELP". PATIENT ALSO YELLING AT PEER IN DINING AREA . PATIENT DEMANDING WITH NURSING STAFF. P-CONTINUE TO ENCOURAGE MEDICATION COMPLIANCE, CONTINUE TO PRESENT REALITY, ENCOURAGE GROUP THERAPY WHILE AWAKE
--- NOTE | 2020-06-09 06:21 | NUR ---
PATIENT SLEPT >8 HOURS THROUGHOUT SHIFT. Q 15 MINUTE CHECKS MAINTAINED. 24 HR chart check completed.
[2020-06-09 06:33] LABS: HEMATOCRIT 37.2 % (37.0-47.0); MEAN CELL VOLUME 105.7 fl (81.0-99.0); MEAN CORPUSCULAR HGB CONC 31.2 g/dl (33.0-37.0); MEAN PLATELET VOLUME 11.7 fl (9.6-12.3); PLATELET COUNT AUTOMATED 83 10*3/uL (130-400); RED BLOOD COUNT 3.52 10*6/uL (4.10-5.10); RED CELL DISTRI WIDTH 14.6 % (0-14.5); WHITE BLOOD COUNT 14.6 10*3/uL (4.8-10.8)
[2020-06-09 06:46] LABS: ALBUMIN 2.9 gm/dl (3.1-4.5); ALKALINE PHOSPHATASE 49 U/L (45-117); BUN 17 mg/dl (7-24); CHLORIDE 106 mmol/L (98-107); POTASSIUM 3.9 mmol/L (3.5-5.1); SGOT/AST 13 IU/L (3-35); SGPT/ALT 11 U/L (12-78); SODIUM 140 mmol/L (136-145); TOTAL PROTEIN 6.7 gm/dL (6.4-8.2)
[2020-06-09 07:12] LABS: OVALOCYTES MODERATE; PLATELET SUFFICIENCY LOW (NORMAL); TOTAL CELLS COUNTED 100 #CELLS
[2020-06-09 07:54] VITALS: BP 124/70
--- NOTE | 2020-06-09 09:43 | NUR ---
DR. UGARTE ON UNIT TO ASSESS PATIENT.
[2020-06-09 12:11] LABS: BILIRUBIN Negative (Negative); BLOOD 3+ (Negative); CLARITY Turbid (Clear); COLOR Yellow (Yellow); GLUCOSE Negative (Negative); KETONE Negative (Negative); LEUKO ESTERASE 3+ (Negative); NITRITE Positive (Negative); SPECIFIC GRAVITY 1.015 (1.001-1.030)
[2020-06-09 12:37] LABS: RBC TNTC rbc/hpf (0-2); WBC 41-50 wbc/hpf (0-5)
[2020-06-09 12:38] LABS: BACTERIA 3+; TRIP PHOS CRYSTALS 2+
--- NOTE | 2020-06-09 13:14 | NUR ---
ON UNIT TO SEE PT AT THIS TIME, DISCUSSED ELEVATED WBCs AND URINALYSIS RESULTS.
--- NOTE | 2020-06-09 15:07 | NUR ---
Shift chart check completed.
[2020-06-09 20:24] VITALS: BP 125/57
--- NOTE | 2020-06-09 20:38 | NUR ---
P- DISRUPTIVE, IRRITABLE, YELLING OUT, POOR PO INTAKES DESPITE BEING PROVIDED FOODS OF PREFERENCE. I- ORIENTATION, MOOD AND BEHAVIORS ASSESSED. ASSESSED PT FOR SI/HI, INTENT OR PLAN. ASSESSED PT FOR S/S HALLUCINATIONS, PARANOIA AND/OR DELUSIONS. MEDICATIONS ADMINISTERED PER PHYSICIAN'S ORDERS. TOTAL ADL CARE PROVIDED BY STAFF. R- PT IS ALERT AND ORIENTED TO PERSON, APPROXIMATE PLACE, TIME AND SITUATION. PT STATES SHE WAS SENT HERE "FOR MY ANGER". MILD MEMORY GAPS NOTED. RESPS EASY AND EVEN ON ROOM AIR. MOOD DEPRESSED, HOPELESS/HELPLESS PT IS EASILY IRRITABLE, AFFECT FLAT. SPEECH IS COHERENT, ABLE TO MAKE NEEDS KNOWN WITHOUT DIFFICULTY. PT DENIES SI/HI, INTENT OR PLAN. PT DENIES HALLUCINATIONS, NO RESPONSE TO INTERNAL STIMULI NOTED. NO PARANOIA OR DELUSIONS NOTED. PT REMAINS CALM AND COOPERATIVE WHEN IN BED BUT WHEN PT IS IN CHAIR AND OUT IN [place] PT YELLS OUT OFTEN, DISRUPTIVE, YELLING "HELLO!" AND "HELP ME" REPEATEDLY DESPITE NEEDS BEING MET BY STAFF. PT YELLS UNTIL SHE IS TAKEN BACK TO BED, UNABLE TO OTHERWISE CALM OR REDIRECT. PT HAS BEEN MEDICATION COMPLIANT. NO AGGRESSIVE BEHAVIORS, COMPLIANT WITH HANDS ON CARE. PT CONTINUES WITH POOR PO INTAKES DESPITE BEING PROVIDED FOODS OF HER PREFERENCE. NO DISTRESS NOTED. P- PLAN TO CONTINUE CURRENT TREATMENT, CONTINUE TO MONITOR MOOD AND BEHAVIORS, PROVIDE APPROPRIATE REORIENTATION AND REDIRECTION NEEDED. CONTINUE TO ENCOURAGE MEDICATION COMPLIANCE WELL GROUP ATTENDANCE AND PARTICIPATION.
--- NOTE | 2020-06-10 01:22 | NUR ---
24 HR chart check completed.
--- NOTE | 2020-06-10 06:14 | NUR ---
UP IN [facility] SHE NEEDS FULL 2 ASSIST. INTERMITTENTLY YELLING HELLO SINCE BEING UP
[2020-06-10 06:15] VITALS: BP 109/63
--- NOTE | 2020-06-10 09:53 | NUR ---
DR. UGARTE ON UNIT TO ASSESS PATIENT.
--- NOTE | 2020-06-10 10:06 | NUR ---
PT NOTED BOUNCING LEFT LEG UP AND DOWN REPEATEDLY WHILE SEATED IN THE CHAIR. ABRASION MEASURING 11CM X 2.7CM X <0.1CM NOTED TO LEFT RUDD APPEARS TO BE CAUSED BY RUBBING RUDD AGAINST SIDE OF CHAIR. PT STATES "I DON'T KNOW WHY I DO THAT". PT NOT NOTED TO BE BOUNCING RIGHT LEG. NO BOUNCING OF LEGS NOTED WHILE IN BED, THIS BEHAVIOR HAS ONLY BEEN OBSERVED WHEN PT IS SITTING IN CHAIR. [facility]. UPDATED. THIS AREA WAS CLEANSED AND PADDED/WRAPPED FOR PROTECTION. PT IS AWARE.
--- NOTE | 2020-06-10 11:46 | NUR ---
NOTIFIED OF ABRASION TO LEFT RUDD.
--- NOTE | 2020-06-10 14:07 | NUR ---
P- ISOLATIVE/WITHDRAWN, YELLS OUT WHEN OUT OF BED I- ORIENTATION, MOOD AND BEHAVIORS ASSESSED. ASSESSED PT FOR SI/HI, INTENT OR PLAN. ASSESSED PT FOR S/S HALLUCINATIONS, PARANOIA AND/OR DELUSIONS. MEDICATIONS ADMINISTERED PER PHYSICIAN'S ORDERS. ASSISTANCE WITH ADL CARE PROVIDED NEEDED. ENCOURAGED PT TO ATTEND AND PARTICIPATE IN RWIGHT [place] GROUPS AND ACTIVITIES. R- PT IS ALERT AND ORIENTED TO PERSON, PLACE, APPROXIMATE DATE. MEMORY GAPS AND CONFUSION NOTED AT TIMES. RESPS EASY AND EVEN ON ROOM AIR. MOOD DEPRESSED, IRRITABLE AT TIMES, FLAT AFFECT. SPEECH IS WNL AND COHERENT, ABLE TO MAKE NEEDS KNOWN WITHOUT DIFFICULTY. PT DENIES SI/HI, INTENT OR PLAN. PT DENIES HALLUCINATIONS, NO RESPONSE TO INTERNAL STIMULI NOTED. NO PARANOIA OR DELUSIONS NOTED. PT IS ISOLATIVE AND WITHDRAWN TO ROOM. YELLS OUT WHEN OUT OF BED AND WANTS TO GO BACK TO BED. PT STATES "I DON'T CARE TO DO ANYTHING BUT LAY IN BED". REPOSITIONING MAINTAINED. NO DISTRESS NOTED. P- PLAN TO CONTINUE CURRENT TREATMENT, CONTINUE TO MONITOR MOOD AND BEHAVIORS, PROVIDE APPROPRIATE REORIENTATION AND REDIRECTION NEEDED. CONTINUE TO ENCOURAGE MEDICATION COMPLIANCE WELL GROUP ATTENDANCE AND PARTICIPATION.
--- NOTE | 2020-06-10 16:54 | NUR ---
THIS RN ASSISTS PT UP FOR DINNER. PT NOTED WITH DARK RED COLORED BRUISING FORMING TO ABRASION ON LEFT RUDD EXTENDING THE FULL LENGTH OF THE PREVIOUSLY IDENTIFIED AREA OF THE ABRASION MEASURING APPROXIMATELY 11CM X 2.7CM X <0.1CM. AREA REMAINS PADDED FOR PROTECTION. PT'S DPOAH LOC ROLAND WAS UPDATED. PT IS AWARE. PT HAS RESTED IN BED BETWEEN MEALS WITH NO FURTHER BOUNCING/KICKING OF THE LEG NOTED WHILE IN BED. PT UP TO CHAIR AT THIS TIME FOR DINNER, PRN COGENTIN 0.5MG PO GIVEN PRIOR TO GETTING OOB. WILL MONITOR FOR EFFECT.
--- NOTE | 2020-06-10 18:03 | NUR ---
PRN COGENTIN INEFFECTIVE. FREQUENT MOVEMENT CONTINUES TO LEFT LEG. THIS MOVEMENT HAD NOT PREVIOUSLY BEEN OBSERVED WHILE PT WAS IN BED BUT ONLY NOTED WHILE PT WAS SEATED IN CHAIR. HOWEVER, OF THIS EVENING, INVOLUNTARY MOVEMENT TO LEFT LEG IS NOW BEING OBSERVED WHILE PT IS IN BED WELL. LEFT LEG IS IN NEARLY CONSTANT MOTION REQUIRING THIS RN TO HOLD LEG STILL TO ALLOW DOCTOR TO ASSESS. INVOLUNTARY MUSCLE CONTRACTIONS NOTED TO LEFT KNEE. PT'S RIGHT LEG MOVING OCCASIONALLY. PAMELA GORDON PMHNP-BC UPDATED WITH NEW ORDERS RECIEVED TO CHANGE PRN COGENTIN TO COGENTIN 0.5MG PO BID ROUTINE, OK TO GIVE DOSE TONIGHT AT HS AND TO HOLD TONIGHT'S HS DOSE OF ABILIFY. ORDERS READ BACK AND VERIFIED. WITNESSED BY 2ND RN.
[2020-06-10 19:11] LABS: HEMATOCRIT 36.4 % (37.0-47.0); MEAN CELL VOLUME 106.7 fl (81.0-99.0); MEAN CORPUSCULAR HGB 33.7 pg (27.0-31.0); MEAN CORPUSCULAR HGB CONC 31.6 g/dl (33.0-37.0); MEAN PLATELET VOLUME 13.3 fl (9.6-12.3); PLATELET COUNT AUTOMATED 84 10*3/uL (130-400); RED BLOOD COUNT 3.41 10*6/uL (4.10-5.10); RED CELL DISTRI WIDTH 14.6 % (0-14.5); WHITE BLOOD COUNT 14.3 10*3/uL (4.8-10.8)
[2020-06-10 19:20] LABS: ACT PARTIAL THROMBO TIME 29.3 SECONDS (20.0-32.1)
[2020-06-10 19:28] LABS: PLATELET SUFFICIENCY LOW (NORMAL); TOTAL CELLS COUNTED 100 #CELLS
[2020-06-10 20:00] VITALS: BP 109/44
--- NOTE | 2020-06-10 21:09 | NUR ---
MAGGI HELD R/T HYPOTENSION. TAKING IN GOOD AMOUNT WATER AND APPROX 60ML OF SUPPLIMENT. MEDICATION COMPLIANT. REFUSES 1:1. WILL CONTINUE TO MONITOR FOR CHANGES IN MOOD/BEHAVIOR AND Q 15 MINS AND PRN FOR SAFETY
--- NOTE | 2020-06-11 06:02 | NUR ---
WOUND CARE HERE TO SEE CLIENT. SLEPT APPROX 9 HOURS LAST NIGHT
[2020-06-11 07:37] VITALS: BP 118/55; BP 97/74
--- NOTE | 2020-06-11 07:40 | NUR ---
OT NOTE Prior to coming to the floor spoke with nursing staff and reported that therapy was coming to treat this pt. Nursing staff gave approval. Pt was seen this A.M. 1:1 for 20 minute OT session with FOOD ASSEMBLER KITCHEN and nursing staff present for observation only. Upon arrival pt was sitting upright in the kwadwo chair in her bedroom. Pt identified by name and and had no complaints at this time. Pt was taken out to the hallway where she completed multiple sit to stand transfers from chair level with Gumaro X 2 and use of hand rail for UE support. Challenged pt's static standing tolerance needed for increased I in self care tasks and functional transfers. Pt was able to tolerate aprox 10-20 seconds at a time before sitting due to fatigue. Pt was then taken into her bedroom where she completed sit to stand from chair level with maxA X 2 followed by standing pivot from the chair to the EOB with maxA X 2. While sitting EOB challenged pt's static sitting balance needed for increased I and enhanced safety. Pt was able to maintain P- sitting balance requiring maxA to correct retrodrage and R lateral lean. Sit to stand then completed from the bed level with maxA X 2 followed by standing pivot back to the kwadwo chair with maxA X 2. Pt was left sitting upright in the kwadwo chair with maxA x 2 for repositioning in the dining jimenez with body alarm activated for safety and under [facility] staff supervision. Continue with rec D/C plan to LTC. NELDA Oliveros/Shannan
--- NOTE | 2020-06-11 07:45 | NUR ---
PHYSICAL THERAPY TREATMENT TIME: OUT 07:45 AM 16 MINUTES Patient presented to therapy in sititng in kwadwo-chair with chair alarm on and no verbalized complaints. Patient gives informed consent for treatment. Patient was identified by name and on wristband. Patient performed STS from Kwadwo-chair MAX A X 2 and verbal commands for hand placement, which the patient did not follow. Patient standing tolerance at hallway railing with MIN A X 2 - MOD A X 2 and at times MAX A X 2 with 1st attempt) 20" 2nd attempt) 10" 3 rd attempt) < 10". Patient SPT transfer to sitting bedside with MAX A X 2 and patient not following any commands. Patient attmepted LE ther ex but was unable to follow commands for proper technique. Patient was left in kwadwo-chair in activity room with U staff present and chair alarm on. Patient was 1:1 with this PRESS TECHNICIAN for 16 minutes total. PATIENT IS UNABLE TO AMBULATE. NELDA CHU WAS PRESENT WITNESS TO THIS TREATMENT. ELIANE GAGNON PRESS TECHNICIAN
--- NOTE | 2020-06-11 08:30 | NUR ---
Treatment Plan meeting was held this a.m. with Dr. Thibodeaux, NISHA Lawrence, RN, AT, LAYER UP-S and Rental Sales Agent in attendance. Plan for discharge at the end of the week or early next week. Pt. will return to [facility].
--- NOTE | 2020-06-11 09:45 | NUR ---
Nursing screen received and chart was reviewed. Patient is a 74 y/o female admitted with depression and fleeting suicidal thoughts. Patient has a PMH of PTSD and anorexia. If patient has a decline in ADLs, transfers or functional mobility please send OT orders. Thank you. Anyi Krishnamurthy OTR/L
--- NOTE | 2020-06-11 11:10 | NUR ---
PHYSICAL THERAPY Nursing screen received. PT evaluation completed and patient is currently on PT caseload. Will continue to follow. Thank you. Isabela Irizarry,PT,DPT
--- NOTE | 2020-06-11 11:44 | NUR ---
Clinical updates faxed to [facility].
--- NOTE | 2020-06-11 15:52 | NUR ---
PM GROUP AFTERNOON GROUP THERAPY WAS CONDUCTED BY NURSING STUDENTS. PT ATTENDED AND PARTICIPATED TO THE BEST OF HER ABILITY.
[2020-06-11 19:00] VITALS: BP 103/55
--- NOTE | 2020-06-11 22:49 | NUR ---
P-IRRITABLE, ISOLATIVE I-REDIRECTION WITH 1:1 THERAPEUTIC INTERVENTIONS AND PRESENT REALITY. EDUCATE AND ENCOURAGE MEDICATION COMPLIANCE R-PATIENT MEDICATION COMPLIANT AT HS. PATIENT REFUSED NOURISHMENT AND FLUIDS AT HS. PATIENT WITH SCANT AMOUNT OF VAGINAL BLOODY DISCHARGE. PATIENT IRRITABLE WITH HS MEDICATIONS. PATIENT STATING "JUST GO AHEAD AND GIVE THEM TO ME. WHO CARES. JUST DO WHAT YOU WANT". THERPEUTIC COMMUNICATION PROVIDED AND PATIENT TOOK MEDICATIONS WITHOUT DIFFICULTY. PATIENT ISOLATIVE IN ROOM. PATIENT WITH NO HALLUCINATIONS OR DELUSIONS. PATIENT WITH SUICIDAL OR HOMICIDAL IDEATIONS. P-CONTINUE TO ENCOURAGE MEDICATION COMPLIANCE, CONTINUE TO PRESENT REALITY, ENCOURAGE GROUP THERAPY WHILE AWAKE
--- NOTE | 2020-06-12 06:03 | NUR ---
PATIENT SLEPT 7 HOURS OF INTERRUPTED SLEEP THROUGHOUT SHIFT. Q 15 MINUTE CHECKS MAINTAINED. 24 HR chart check completed.
--- NOTE | 2020-06-12 07:37 | NUR ---
OT NOTE Prior to coming to the floor spoke with nurse and reported that therapy was coming to treat this pt. Nurse gave approval. Pt was seen this A.M. 1:1 for 17 minute OT session with POUNCER and nursing staff present for observation only. Upon arrival pt was supine in bed. Pt identified by name and and had no complaints at this time. Requested for pt to león B socks and pt was unable resulting in maxA to león. Pt transferred supine to sit EOB with maxA X 2. While sitting EOB challenged pt's static sitting balance for increased I and enhanced safety. Pt presented with P- sitting balance requiring maxA to correct retrograde LOB. Pt was able to self maintain upright posture for aprox 7 seconds before requiring maxA due to LOB. Sit to stand completed from bed level with maxA X 2 followed by standing pivot to the w/c with maxA X 2. Pt was then taken out to the hallway where she completed multiple sit to stand transfers from w/c level with modA x 2 and use of hand rail for UE support. Challenged pt's static standing tolerance needed for increased I in self care tasks and functional transfers. Pt was able to tolerate aprox 15-20 seconds at a time before sitting due to quick onset of fatigue. Pt was left sitting upright in the w/c in the dining jimenez with body alarm activated for safety and under [facility] staff supervision. Continue with rec D/C plan to LTC. NELDA Oliveros/Shannan
[2020-06-12 07:48] VITALS: BP 110/58
--- NOTE | 2020-06-12 08:30 | NUR ---
Treatment Plan meeting was held this a.m. with Dr. Thibodeaux via telephone, GROUND SUPPORT EQUIPMENT MECHANIC Melinda, RN, AT, CRANE OILER-S and Helmet Hat Brim Cutter in attendance. Plan for discharge at the end of the week, beginning of next week. Pt. will return to [facility].
--- NOTE | 2020-06-12 08:50 | NUR ---
PHYSICAL THERAPY TREATMENT TIME: IN 07:20 AM 22 MINUTES TOTAL Patient presented to therapy in supine with head of bed flat and bed alarm on. Patient gives informed consent for treatment. Patient was identified by name and on wristband. Patient required supine <> sit on EOB with MAX A X 2. Patient sat on EOB with MIN A X 1- CGA to maintain upright sitting posture and prevent retrograde movement. Patient STS from sitting EOB MAX A X 2. SPT <> sitting EOB with MAX A X 2. Patient STS from W/C MOD A X 2. Patient stadnign tolerance x 4 with 1st attempt) 20 sec ,2nd attempt) 18 sec, 3rd attempt) < 10 sec ,4th attempt) < 10 sec with CGA - MIN A X 2. Patient performed sat in W/C and performed bilateral LE ther ex with AAROM - AROM x 15 reps each in all planes of movement including LAQs, marches, heel/toe raises and hip abduction for strengthening the LEs in order to improve patient's functional mobility. Patient WAS LEFT IN ACTIVITY ROOM WITH CAHIR ALARM ATTACHED TO PATIENT WITH U STAFF PRESENT. NELDA CHU present as of this treatment. Patient was 1:1 with this SOAPING DEPARTMENT SUPERVISOR for 22 minutes total. ELIANE GAGNON SOAPING DEPARTMENT SUPERVISOR
--- NOTE | 2020-06-12 09:49 | NUR ---
DR. ALATORRE AND TEAM ON UNIT TO ASSESS PT. MADE AWARE OF URINE CULTURE SHOWING RESISTANCE TO MACROBID. STATES HE WILL LOOK AT IT.
--- NOTE | 2020-06-12 11:35 | NUR ---
AM GROUP PT ATTENDED MORNING GROUP THERAPY AND PARTICIPATED IN CONVERSATION AND READ THE NEWSPAPER. PT WAS "HER OLD SELF" THIS MORNING, ALERT, TALKATIVE, ON TOPIC, INITIATING CONVERSATION AND LAUGHING. PT EXHIBITED NO ADVERSE BEHAVIORS WHILE IN GROUP
--- NOTE | 2020-06-12 15:42 | NUR ---
PM GROUP PT DID NOT ATTEND AFTERNOON GROUP THERAPY. PT WAS IN BED RESTING.
--- NOTE | 2020-06-12 18:30 | NUR ---
PAMELA GORDON POSTAL SUPERVISOR UPDATED ON PT'S [place] FALLING OFF HER EMAR AND GOT VERBAL CONSENT TO REORDER MEDICATION. PT'S APPETITE HAS BEEN IMPROVING THE DAY HAS GONE BY. PT DID NOT RECEIVE PM DOSE BUT APPETITE WAS GOOD AT DINNER. NO BEHAVIORS NOTED. BEHAVIORS MONITORED WITH Q15 MINUTE SAFETY CHECKS. SEE [facility] FLOWSHEET FOR SPECIFIC MONITORING.
[2020-06-12 19:05] VITALS: BP 117/76
--- NOTE | 2020-06-12 19:50 | NUR ---
DR OCAMPO UPDATED ABOUT MEDICATION RIFAXIMIN FALLING OFF PATIEN EMAR. DR OCAMPO TO REORDER
--- NOTE | 2020-06-12 23:40 | NUR ---
P-ISOLATIVE I-REDIRECTION WITH 1:1 THERAPEUTIC INTERVENTIONS AND PRESENT REALITY. EDUCATE AND ENCOURAGE MEDICATION COMPLIANCE R-PATIENT MEDICATION COMPLIANT AT HS. PATIENT REFUSED NOURISHMENT AND FLUIDS AT HS. PATIENT WITH NO VAGINAL BLOODY DISCHARGE AT THIS TIME. PATIENT ISOLATIVE IN ROOM THIS SHIFT. PATIENT WITH NO HALLUCINATIONS OR DELUSIONS. PATIENT WITH SUICIDAL OR HOMICIDAL IDEATIONS. P-CONTINUE TO ENCOURAGE MEDICATION COMPLIANCE, CONTINUE TO PRESENT REALITY, ENCOURAGE GROUP THERAPY WHILE AWAKE
--- NOTE | 2020-06-13 06:03 | NUR ---
PATIENT SLEPT 8-9 HOURS OF UNINTERRUPTED SLEEP THROUGHOUT SHIFT. Q 15 MINUTE CHECKS MAINTAINED. 24 HR chart check completed.
--- NOTE | 2020-06-13 07:22 | NUR ---
OT NOTE Prior to coming to the floor spoke with nurse and reported that therapy was coming to treat this pt. Nurse gave approval. Pt was seen this A.M. 1:1 for 17 minute OT session with MANAGER IN TRAINING and nursing staff present for observation only. Upon arrival pt was supine in bed. Pt identified by name and and had no complaints at this time. Pt transferred supine to sit EOB with maxA X 2. While sitting EOB pt presented with P- sitting balance requiring maxA to correct LOB which were occuring over all directions. Sit to stand completed from EOB with maxA X 2 followed by standing pivot from the EOB to the w/c with maxA X 2. Pt was then taken out to the hallway where she completed multiple sit to stand transfers from chair level with maxA X 2 and use of hand rail for UE support. Challenged pt's static standing tolerance and pt was able to tolerate aprox 5-12 seconds befor sitting due to fatigue and B knee buckle. Pt was left sitting upright in the w/c in the dining jimenez under [facility] staff supervision and body alarm activated for safety. COntinue with rec D/C plan to LTC. NELDA Oliveros/Shannan
[2020-06-13 07:26] VITALS: BP 115/56
--- NOTE | 2020-06-13 08:30 | NUR ---
Treatment Plan meeting was held this a.m. with Dr. Thibodeaux via telephone, NISHA Lawrence, RN, AT, RETIREMENT SPECIALIST-S and Pitch Gatherer in attendance. Plan for discharge Thursday. Pt. will return to [facility].
--- NOTE | 2020-06-13 09:50 | NUR ---
AND TEAM ON UNIT TO SEE PT AT THIS TIME.
--- NOTE | 2020-06-13 10:20 | NUR ---
PHYSICAL THERAPY TREATMENT TIME: OUT 07:26 PM 20 MINUTES TOTAL Patient presented to therapy in supine in bed with head of bed elevated and bed alarm on. Patient gives informed consent for treatment. Patient was identified by name and on wristband. Patient is very non-verbal. Patient performed supine to sitting on EOB with MAX A X 2. Patient leans back when sitting and requires MOD A X 1 to maintain upright position. Patient has very weak core muscles and difficult time maintaining upright posture. Patient STS from EOB with MAX A X 2. Patient does not follow commands well for hand placement and technique. Patient STS from W/C with MAX A X 2. Patient standing tolerance at hallway railing 1st attempt) 7 sec 2nd attempt) 5 sec 3rd attempt) 10 sec 4th attempt) 7 sec 5th attempt) 12 sec - all with MIN A X 1 - MOD A x 2. Patient sat in W/C and performed seated bilateral LE ther ex 2 x 10 reps each in all planes of movement including LAQs, marches, hip abd., heel/toe raises for strengthening the LEs in order to improve patient's functional mobility. Patient was left in W/C with chair alarm attached and [facility] staff present in room with patient. Patient left in activity room at table. Patient was 1:1 with 20 minutes total. ELIANE GAGNON RAILROAD MECHANIC
--- NOTE | 2020-06-13 11:39 | NUR ---
AM GROUP/LIGHT THERAPY AND DISCUSSION PT ATTENDED MORNING GROUP THERAPY AND PARTICIPATED IN ALL ACTIVITIES. PT WAS FOCUSED AND ON TOPIC. PT EXHIBITED NO ADVERSE BEHAVIORS WHILE IN GROUP. PT WAS NEITHER DISRUPTIVE NOR AGITATED.
--- NOTE | 2020-06-13 11:54 | NUR ---
NO ADVERSE MOODS OR BEHAVIORS OF THIS TIME IN THE SHIFT. PT IS ALERT AND ORIENTED X4. RESPS EASY AND EVEN ON ROOM AIR. MOOD STABLE, AFFECT IS APPROPRIATE. PT STATES "I FEEL SO MUCH BETTER. I'M SO MUCH MORE RELAXED". SPEECH IS COHERENT, ABLE TO MAKE NEEDS KNOWN WITHOUT DIFFICULTY. PT DENIES SI/HI, INTENT OR PLAN. PT DENIES HALLUCINATIONS, NO RESPONSE TO INTERNAL STIMULI NOTED. NO PARANOIA OR DELUSIONS NOTED. MEAL INTAKES SIGNIFICANTLY IMPROVED. PT IS MORE APPROPRIATE AND INTERACTIVE WITH STAFF, PEERS AND HAD LONG PLEASANT CONVERSATION WITH SISTER ON THE PHONE FOR HER SISTER'S BIRTHDAY. NO AGGRESSIVE BEHAVIORS. NO YELLING OUT. NO DISTRESS NOTED. PLAN TO CONTINUE CURRENT TREATMENT.
--- NOTE | 2020-06-13 12:32 | NUR ---
Spoke with Kristina Barney at [facility] and Notified her of Plans to discharge Pt. on Thursday. Clinical Updates faxed to Facility.
--- NOTE | 2020-06-13 13:53 | NUR ---
Pt easily engaged in conversation with this job specification writer early this AM. Pt shared that it was her sister's birthday today and that she planned on calling her sister later. Per pt request, provided pt with ice water. Pt smiled and interacted appropriately with this SHEAR HELPER-S.
--- NOTE | 2020-06-13 15:40 | NUR ---
PM GROUP/LEISURE INTERESTS PT DID NOT ATTEND AFTERNOON GROUP THERAPY. PT WAS IN BED RESTING.
[2020-06-13 19:04] VITALS: BP 132/79
[2020-06-13 19:17] VITALS: BP 132/79
--- NOTE | 2020-06-14 00:53 | NUR ---
PT HAS BEEN RESTING IN BED THROUGHOUT SHIFT. NO ADVERSE BEHAVIORS NOTED. NO COMPLAINTS VERBALIZED. MEDICATION COMPLIANT. 24 HR chart check completed.
--- NOTE | 2020-06-14 02:15 | NUR ---
PT ACCUSING ROOMMATE OF WALKING AROUND ROOM AND ALSO ACCUSED ROOMMATE OF THREATENING HER. MENTAL HEALTH WORKER HAS BEEN SITTING OUTSIDE OF ROOM THROUGHOUT SHIFT AND HAS NOT WITNESSED ROOMMATE WALKING AROUND ROOM OR THREATEN PT. PROVIDED REORIENTATION AND EMOTIONAL SUPPORT. ADLS WITH 2 STAFF.
--- NOTE | 2020-06-14 05:41 | NUR ---
SLEPT PAST 2014 WITH 2 BRIEF AWAKENINGS.
--- NOTE | 2020-06-14 06:40 | NUR ---
TALKED WITH PT ABOUT HER ACCUSING HER ROOMMATE OF THREATENING HER AND WALKING AROUND THEIR ROOM. PT ADMITS THAT SHE THOUGHT IT WAS ANOTHER RESIDENT WHO SHE PREVIOUSLY HAD AN ISSUE WITH WHICH CAUSED HER TO FEEL ANXIOUS. PT REPORTS THAT ONCE SHE SEEN HER ROOMMATES FACE SHE REALIZED SHE WAS NOT IN DANGER. PT APOLOGIZED TO HER ROOMMATE.
--- NOTE | 2020-06-14 06:51 | NUR ---
PT NOTED TO HAVE MODERATE INVOLUNTARY MOVEMENTS OF THE HEAD, NECK, TRUNK AND BILATERAL LEGS. PT MOVING IN A ROCKING MOTION. PT STATED, "I DIDN'T NOTICE THESE MOVEMENTS LIKE THIS YESTERDAY." PT REPORTS SHE FEELS BETTER OVERALL, HAS STOPPED YELLING OUT AND THE INVOLUNTARY MOVEMENTS ARE HER ONLY COMPLAINT.
[2020-06-14 07:23] VITALS: BP 112/72
--- NOTE | 2020-06-14 07:30 | NUR ---
OT NOTE Prior to coming to the floor spoke with nursing staff and reported that therapy was coming to treat this pt. Nursing staff gave approval. Pt was seen this A.M. 1:1 for 15 minute OT session with INTERNATIONAL SALES MANAGER and nursing staff present for observation only. Upon arrival pt was sitting upright in the w/c in the dining jimenez. Pt presented to therapy with multiple involuntary movements throughout her entire body and severe R lateral lean that she was unable to self correct requiring maxA to correct. Pt was taken out to the hallway where she completed multiple sit to stand transfers from chair level with maxA X 2 and use of hand rail for UE support. Challenged pt's static standing tolerance needed for increased I in self care tasks and functional transfers. Pt was able to tolerate aprox 3-7 seconds at a time before sitting due to B knee buckle. Pt was left sitting upright in the w/c with a wedge on her right side with body alarm activated for safety and under U staff supervision. Continue with rec D/C plan to LTC. FRAN Oliveros
--- NOTE | 2020-06-14 08:30 | NUR ---
Treatment Plan meeting was held this a.m. with Dr. Thibodeaux, RN, AT, GOLF RANGE ATTENDANT-S and Industrial Welder in attendance. Plan for discharge Thursday. Pt. will return to [facility].
--- NOTE | 2020-06-14 08:50 | NUR ---
PHYSICAL THERAPY TREATMENT TIME: OUT 07:28 AM 21 MINUTES TOTAL Patient presented to therapy in sitting in W/C in activity room with report of no complaints. Patient gives informed consent for treatment. Patient was identified by name and on wristband. Patient performed STS from W/C with MAX X 2. Patient does not follow commands for hand placement and technique. Patient performed standing tolerance at hallway railing fofor 4 xS and no longer than 7 - 10 sec before the patient had to sit due to LE weakness. Patient was not able to maintain LEs in extension and had a severe R lean in sitting and standing. Patient sat in W/C and performed seated bilateral LE ther ex 2 x 10 reps each in all planes of movement ,including LAQs, marches, heel/toe raises and hip abduction for strengthening the LES in order to improve functional mobility. Patient was left in W/C with chair alarm on and U STAFF present in activity room. Patient was 1:1 with this FIELD DIRECTOR for 21 minutes total. ELIANE GAGNON FIELD DIRECTOR
--- NOTE | 2020-06-14 11:40 | NUR ---
AM GROUP PT ATTENDED MORNING GROUP THERAPY AND PARTICIPATED IN ALL ACTIVITIES. PT IS PLEASANT, JOKING, AND FOCUSED. PT EXHIBITED NO ADVERSE BEHAVIORS WHILE IN GROUP.
--- NOTE | 2020-06-14 15:13 | NUR ---
NO ADVERSE MOODS OR BEHAVIORS NOTED THIS SHIFT. PT IS ALERT AND ORIENTED X4. MEMORY APPEARS TO BE INTACT. RESPS EASY AND EVEN ON ROOM AIR. MOOD IS STABLE, AFFECT IS APPROPRIATE. SPEECH IS WNL, COHERENT, ABLE TO MAKE NEEDS KNOWN WITHOUT DIFFICULTY. PT DENIES SI/HI, INTENT OR PLAN. PT DENIES HALLUCINATIONS, NO RESPONSE TO INTERNAL STIMULI NOTED. NO PARANOIA OR DELUSIONS NOTED. PT IS MEDICATION COMPLIANT WITHOUT DIFFICULTY. INVOLUNTARY TRUNCAL AND UPPER BODY MOVEMENTS CONTINUE. IS AWARE. NO AGGRESSIVE BEHAVIORS. NO DISTRESS NOTED. PLAN TO CONTINUE CURRENT TREATMENT, CONTINUE TO MONITOR MOOD AND BEHAVIORS, PROVIDE APPROPRIATE REORIENTATION AND REDIRECTION NEEDED. CONTINUE TO ENCOURAGE MEDICATION COMPLIANCE WELL GROUP ATTENDANCE AND PARTICIPATION.
--- NOTE | 2020-06-14 15:48 | NUR ---
PM GROUP/FUN AND GAMES PT DID NOT ATTEND AFTERNOON GROUP THERAPY. PT WAS IN BED RESTING.
[2020-06-14 19:45] VITALS: BP 146/57
--- NOTE | 2020-06-14 22:57 | NUR ---
P-IRRITABLE. PREOCCUPIED WITH ROOMMATE. I-ASSESSED ORIENTATION, MOOD, BEHAVIORS, SI/HI, HALLUCINATIONS AND/OR PARANOIA. PROVIDED 1:1 EMOTIONAL SUPPORT, AND REDIRETION. ADMINISTERED MEDICATIONS PER PHYSICIANS ORDERS. ADLS ASSISTED X2 STAFF. R-PT ALERT TO SELF, PLACE, TIME AND SITUATION. PT IRRITABLE AND PREOCCUPIED THAT ROOMMATE KEEPS THE LIGHT WHICH CAUSES HER NOT TO SLEEP. DENIES SI/HI. NO RESPONSE TO INTERNALI STIMULI NOTED. MEDICATION COMPLIANT. INVOLUNATRY UPPER BODY AND TRUNCAL MOVEMENTS CONTINUE, DR. JACINTO IS AWARE. 2 STAFF ASSISTED WITH INCONTINENCE CARE. P-WILL CONTINUE TO MONITOR MOODS AND BEHAVIORS. WILL CONITNUE CURRENT TX PLAN. Q 15 MIN CHECKS MAITAINED AND PRN.
--- NOTE | 2020-06-15 06:06 | NUR ---
SLEPT PAST 2244 BRIEF AWAKENINGS FOR INCONTINENCE CARE AND REPOSITIONING.
--- NOTE | 2020-06-15 07:20 | NUR ---
OT NOTE Prior to coming to the floor spoke with nursing staff and reported that therapy was coming to treat this pt. Nursing staff gave approval. Pt was seen this A.M. 1:1 for 15 minute OT session with PAPER MAKING MACHINE OPERATOR and nursing staff present for observation only. Upon arrival pt was sitting upright in the w/c in the dining jimenez. Pt idenitified by name and and had no complaints at this time. Pt was taken out to the hallway where she completed multiple sit to stand transfers from chair level with maxA X 2 and use of hand rail for UE support. Challenged pt's static standing tolerance needed for increased I in self care tasks and functional transfers. Pt was able to tolerate aprox 7-18 seconds before B knee buckle and/or generalized weakness. Throughout pt was educated on correcting her posture, locking her knees out to prevent buckling, and standing with a wider base of support. Pt was unable to self correct any mentioned above requiring maxA to complete. Pt was left sitting upright in the w/c in the dining jimenez under [facility] staff supervision and body alarm activated for safety. Continue with rec D/C plan to LTC. NELDA Oliveros/Shannan
[2020-06-15 07:42] VITALS: BP 134/86
--- NOTE | 2020-06-15 08:30 | NUR ---
Treatment Plan meeting was held this a.m. with Dr. Thibodeaux, RN, AT, MANUFACTURING PROJECT MANAGER-S and Head Of Sales And Marketing in attendance. Plan for discharge Thursday. Pt. will return to [facility].
--- NOTE | 2020-06-15 11:12 | NUR ---
Spoke with Kristina Barney at [facility]. Provided with Updates and Discharge Planned for Thursday. Clinical Updates faxed to Facility.
--- NOTE | 2020-06-15 11:36 | NUR ---
AM GROUP PT DID NOT ATTEND MORNING GROUP THERAPY. PT WAS IN BED RESTING.
--- NOTE | 2020-06-15 12:47 | NUR ---
PHYSICAL THERAPY CO-SIGN I approve of the Physical Therapy notes written above. Amber Francisco PT
--- NOTE | 2020-06-15 12:55 | NUR ---
PHYSICAL THERAPY CO-SIGN I approve of the Physical Therapy notes written above. Amber Francisco PT
--- NOTE | 2020-06-15 15:34 | NUR ---
PM GROUP/GRATITUDE PT DID NOT ATTEND AFTERNOON GROUP THERAPY. PT WAS IN BED RESTING.
--- NOTE | 2020-06-15 16:05 | NUR ---
Spoke with Chacha Grant [place]. There is no admission Nurse on Thursday or Thursday Pt. cannot discharge until Thursday.
--- NOTE | 2020-06-15 17:04 | NUR ---
PT'S MOOD IS STABLE. AFFECT IS APPROPRIATE. PT IS ALERT, ORIENTED X 3. PT STATES SHE IS "FEELING BETTER". PLEASANT AND COOPERATIVE. PT IS INCONTINENT OF BLADDER. PT IS A ONE ASSIST UP TO W/C. VOICING NEEDS T/O SHIFT, MET BY STAFF. Q15 MIN MONITORING PER POLICY FOR SAFETY.
[2020-06-15 19:02] VITALS: BP 118/64
--- NOTE | 2020-06-15 21:17 | NUR ---
PROVIDED INCONTINENCE CARE X2 STAFF. PT C/O HEAVINESS IN HER CHEST AND NAUSEA. MANUAL VS 126/58 P-64 SPO2 97%. PT REMAINS ALERT AND RESPONSIVE. NO GRIMACING OR IMPAIRED MOVEMENT. RESP EASY AND UNLABORED. SKIN COLOR NORMAL. NOTIFIED DR. HDEZ, HE WILL REVIEW CHART.
--- NOTE | 2020-06-15 21:47 | NUR ---
NOTIFIED DR. HDEZ EKG RESULTS ARE IN FOR REVIEW.
--- NOTE | 2020-06-15 21:55 | NUR ---
PT RESTING IN BED AT THIS TIME. NO GRIMACING OR IMPAIRED MOVEMENTS. RESP EASY AND UNLABORED. PT STATES, "I FEEL OK." NO S/S DISTRESS NOTED.
--- NOTE | 2020-06-15 22:33 | NUR ---
NOTIFIED DR. HDEZ TROPONIN RESULTS ARE IN FOR REVIEW, NNO. WILL CONTINUE TO TREND TROPONIN LEVELS TO MONITOR FOR ANY ELEVATIONS. PER DR. HDEZ CONTINUE TO MONITOR.
--- NOTE | 2020-06-16 00:18 | NUR ---
PT COOPERATIVE WITH LAB DRAW. RESTING IN BED WITH NO COMPLAINTS VOICED. RESP EASY AND UNLABORED. STAFF ASSISTED X2 WITH INCONTINENCE CARE.
--- NOTE | 2020-06-16 03:10 | NUR ---
PT RESTING IN BED, COOPERATIVE WITH LAB DRAW. NO COMPLAINTS VOICED, NO GRIMACING NOTED. RESP EASY AND UNLABORED. ASSISTED X2 STAFF WITH INCONTINENCE CARE AND REPOSITIONING.
--- NOTE | 2020-06-16 05:51 | NUR ---
UPDATED DR. OCAMPO THAT ALL TROPONIN RESULTS WERE AVAILABLE. PER DR. OCAMPO HE REVIEWED, NNO, CONTINUE TO MONITOR.
--- NOTE | 2020-06-16 06:02 | NUR ---
PT SLEPT PAST 2114 WITH BRIEF AWAKENINGS FOR LAB DRAWS, REPOSITIONING AND INCONTINENCE CARE. 24 HR chart check completed.
--- NOTE | 2020-06-16 07:14 | NUR ---
ARM AND TRUNCAL MOVEMENTS CONTINUE. PT CALLING OUT, "HELP" AND "HELLO". WHEN PT IS ASKED WHAT SHE NEEDS SHE IS STATES, "I DON'T KNOW, I DON'T KNOW WHY I AM SAYING THAT." PT REPORTS HER LEFT LEG WAS HURTING. PROVIDED REPOSITINING WITH EFFECT. NO OTHER COMPLAINTS VOICED. RESP EASY AND UNLABORED. NO S/S DISTRESS NOTED.
[2020-06-16 07:44] VITALS: BP 115/64
--- NOTE | 2020-06-16 08:56 | NUR ---
P: INCREASED AGITATION, YELLING OUT LOUD, STATING "I DIDN'T TALK TO THE DOCTOR" RUNNING WHEELCHAIR INTO ACTIVITY ROOM DOOR. INCREASED FUSTRATION DUE TO NOT BEING ABLE TO RECALL TALKING TO TAYLER BENTON X 2, TREE WRAPPER; SELF AWARE OF MEMORY DEFICITS. I: ONE ON ONE, REDIRECTION, CHANGE OF ENVIRONMENT, ASSISTED TO BED TO REST AND SPACE PROVIDED. R: INEFFECTIVE. PATIENT CONTINUES TO YELL OUT, BEIND DISRUPTIVE ON UNIT, RESTLESS. PRN ATIVAN 1MG IM IN RIGHT DELTIOD, TOLERATED WELL. PATIENT IS ALERT X 4 WITH INTERMITTANT CONFUSION. MOOD IS LABILE, RESTLESS WITH FUSTRATION. DENIES ANY HALLUCINATIONS, DELUSIONS, HI/SI OR PAIN. 2 PERSON ASSIST WITH ACTIVITIIES OF DAILY LIVING, INCONTINENT OF BOWEL AND BLADDER. SET UP FOR MEALS, INTAKE ARE GOOD WITH ADEQUATE FLUIDS. MEDICATION COMPLAINT WITH EDUCATION PROVIDED. Q 15 MINUTE SAFETY CHECKS MAINTAINED. ABLE TO SELF PROPEL IN WHEELCHAIR. P: CONTINUE TO MONITOR THE EFFECTS OF PRN ATIVAN. CONTINUE TO MONITOR FOR YELLING OUTBURST, BEING REPEATIVE, ABNORMAL BODY MOVEMENTS. PROVIDE ONE ON ONE FOR EMOTIONAL SUPPORT, REDIRECTION/OREINTATION, CHANGE OF ENVIRONMEMT AND PROVIDE SPACE NEEDED.
--- NOTE | 2020-06-16 10:00 | NUR ---
PATIENT RESTING IN BED, PRN ATIVAN EFFECTIVE. CONTINUE TO MONITOR FOR OUTBURST.
--- NOTE | 2020-06-16 10:00 | NUR ---
DR ALATORRE ON UNIT TO ASSESS PT, UPDATE PROVIDED.
[2020-06-16 19:58] VITALS: BP 114/70
--- NOTE | 2020-06-16 22:06 | NUR ---
CLIENT INTERACTIVE AND PLEASENT DURING MEDICATION PASS. DENIED ANY PROBLEMS AND SAID SHE HAD A GOOD DAY 20 MINS LATER HER ROOM MATE WENT INTO BATHROOM TO PREPARE FOR BED. CLIENT SCREEMING SHE IS GOING TO FILE A COMPLAINT ABOUT HER ROOMMATE BEING UP PAST 9PM AND THAT SHE WAS TRYING TO SLEET. ROOMMATE WAS NOT NOISY AND I TRIED TO REDIRECT CLIENT WITHOUT SUCCESS. CONTINUED TO MONITOR SITUATION TILL ROOMMATE GOT INTO BED.
--- NOTE | 2020-06-16 22:37 | NUR ---
REFUSED ALL PM CARE INCLUDING ORAL CARE
--- NOTE | 2020-06-17 06:42 | NUR ---
SLELPT 8 UNINTERUPTED HOURS. MOVED SELF AROUND IN BED
[2020-06-17 07:14] VITALS: BP 127/60
--- NOTE | 2020-06-17 08:24 | NUR ---
TEARFUL AND FRETFUL. DOESN'T REMEMBER SEEING NURSE PRACTIONER YESTERDAY AND AFRAID SHE WON'T SEE NURSING CLINICAL DIRECTOR TODAY. MUCH REINFORCEMENT PROVIDED WITHOUT SUCCESS. NURSING CLINICAL DIRECTOR IN ROOM AT THIS TIME
--- NOTE | 2020-06-17 10:48 | NUR ---
DR ALATORRE ON UNIT TO ASSESS PT, UPDATE PROVIDED.
--- NOTE | 2020-06-17 16:15 | NUR ---
P: PT REPETITIVE AND YELLING OUT HELLO THIS MORNING AND AT LUNCH. PT CAN BE IRRITABLE WITH STAFF AND PEERS I: PROVIDE EMOTIONAL SUPPORT AND 1:1 FOR PT TO VOICE FEELINGS, ENCOURAGE MED COMPLIANCE AND PROVIDE MED EDUCATION, PROVIDE LOW STIMULATION ENVIRONEMENT FOR PT TO CALM. R: PT ALERT TO PERSON, PLACE AND TIME. PT MED COMPLIANT WITHOUT DIFFICULTY, MED EDUCATION PROVIDED. PT CALM, UNABLE TO STATE WHY SHE YELLS OUT AT TIMES STATES "I DON'T KNOW, I'M TRYING TO CONTROL IT SOMETIMES I CAN'T." PT MUCH MORE PLEASANT THIS AFTERNOON AND YELLING OUT HAS DECREASED. PT PLEASANT AND COPPERATIVE WITH STAFF THIS AFTERNOON. PT DENIES ANY HALLUCINATIONS OR DELUSIONS. PT DENIES ANY SUICIDAL THOUGHTS. PT UP TO A WHEELCHAIR, REQUIRES 2 STAFF ASSIST FOR TRANSFERS AND CARE. PT INCONTINENT OF BOWEL ADN BLADDER, CARE PROVIDED NEEDED. P: MONITOR PT BEHAVIORS ON Q15 MIN SAFETY CHECKS, ENCOURAGE MED COMPLIANCE AND PROVIDE MED EDUCATION, PROVIDE EMOTIONAL SUPPORT AND 1:1 FOR PT TO VOICE FEELINGS, PROVIDE LOW STIMULATION ENVIRONMENT FOR PT TO CALM
[2020-06-17 19:24] VITALS: BP 109/78
--- NOTE | 2020-06-17 21:25 | NUR ---
ISOLATIVE TO ROOM. INTERACTIVE WITH STAFF DURING MEDICATION PASS. STATES SHE HAD A WONDERFUL DAY IS REALLY SUPRISED HOW MUCH PHYSICAL THERAPY IS HELPING HER. THEY GOT HER OUT OF BED YESTERDAY AND IT WAS SO EASY. (YESTERDAY WAS THURSDAY AND NO PHYSICAL THERAPY HERE.) OTHER THAN MY MEMORY I AM DOING GOOD. EMOTIONAL SUPPORT PROVIDED. WILL MONITOR FOR CHANGES IN MOOD/BEHAVIOR AND Q 15 MINS AND PRN FOR SAFETY
--- NOTE | 2020-06-18 05:46 | NUR ---
24 HR chart check completed. SLEPT APPROX 6 HOURS.
--- NOTE | 2020-06-18 07:19 | NUR ---
OT NOTE Prior to coming to the floor spoke with nursing staff and reported that therapy was coming to treat this pt. Nursing staff gave approval. Pt was seen this A.M. 1:1 for 19 minute OT session with AIRCRAFT BODY REPAIRER and nursing staff present for observation only. Upon arrival pt was supine in bed. Pt identified by name and and had no complaints at this time. Pt transferred supine to sit EOB with maxA X 2. While sitting EOB challenged pt's static sitting balance needed for enhanced safety and increased I. Pt presented with P- sitting balance requiring maxA to correct R lateral lean and retrograde posture. Sit to stand completed from bed level with maxA X 2 followed by standing pivot from the EOB to the w/c with maxA X 2. Pt was then taken out to the hallway where she completed multiple sit to stand transfers from w/c level with modA X 2 and use of hand rail for UE support. Challenged pt's static standing tolerance needed for increased I in self care tasks and functional transfers. Pt was able to tolerate aprox 10-30 seconds at a time before sitting due to fatigue and BLE weakness. Pt was left sitting upright in the w/c in the dining jimenez with body alarm activated for safety and under U staff supervision. Continue with rec D/C plan to LTC. FRAN Oliveros
[2020-06-18 08:00] VITALS: BP 136/57
--- NOTE | 2020-06-18 08:27 | NUR ---
PHYSICAL THERAPY TREATMENT TIME: 07:10 AM - 07:25 AM 15 MINUTES TOTAL Patient presented to therapy in supine with no complaints or concerns. Patient's bed alarm is on. Patient gives informed consent for treatment. Patient identified by name and on wristband. Patient still confused at times. Patient performed supine - sitting on EOB with MAX A X 2. Patient sat on EOB with MAX A X 1 to prevent R lateral lean. Patient STS from EOB with MOD A X 2 AND VERBAL CUES for hand placement. Patient SPT to bedside W/C with MAX A X 2. Patient performed stadnign tolerance at [facility] in [facility] with CGA - MIN A X 2 1st attmept) 30 sec 2nd attempt) 25 sec 3rd attempt) 20 sec 4th attempt) 10 sec 5th attempt) 5 sec. Patient then attempted seated bilateral LE ther ex 2 x 10 reps each in all planes of movement, however she could only follow commands for the first 10 reps LAQs and then seemed to have difficulty following commandsfor the remainder of the exercises. AAROM was required for the remainder of the exercises. Patient was left in sitting in W/C with chair alarm on in activity room with [facility] staff present. Patient was 1:1 with this ADVERTISING ASSOCIATE for 15 minutes total. ELIANE GAGNON ADVERTISING ASSOCIATE
--- NOTE | 2020-06-18 08:30 | NUR ---
Treatment Plan meeting was held this a.m. with Dr. Thibodeaux, NISHA Lawrence, RN, AT, CONSUMER EDUCATOR-S and Asset Card Clerk in attendance. Plan for discharge today. Pt. to return to [facility].
[2020-06-18] MEDS ORDERED: MIRTAZAPINE15 M2 PO (10:17)
[2020-06-18] MEDS ORDERED: DRONABINOL2.5 MG PO (10:17)
--- NOTE | 2020-06-18 10:57 | NUR ---
Discharge Paperwork Faxed to [facility].
--- NOTE | 2020-06-18 10:58 | NUR ---
Transportation arranged with [facility] to transport with pharmacy picking tech time 1:00 p.m.
--- NOTE | 2020-06-18 11:36 | NUR ---
Patient is discharging today to [facility] where she is a long-term care resident. Follow-up will be with Dr Thibodeaux, visiting psychiatrist. While at [facility], pt's mood and behaviors improved. Pt did participate in some of the programming but primarily sat away from others while in the activity room.
--- NOTE | 2020-06-18 11:40 | NUR ---
AM GROUP PT DID NOT ATTEND MORNING GROUP THERAPY. PT WAS IN BED RESTING. PT IS SET TO BE DISCHARGED FROM THE UNIT TODAY.
--- NOTE | 2020-06-18 11:44 | NUR ---
NURSE TO NURSE REPORTED GIVEN TO CHRISTINE AT [facility].
--- NOTE | 2020-06-19 07:33 | NUR ---
PHYSICAL THERAPY CO-SIGN I approve of the Physical Therapy notes written above. Amber Francisco PT
--- NOTE | 2020-06-19 07:50 | NUR ---
OCCUPATIONAL THERAPY CO-SIGN I approve of the Occupational Therapy notes written above. LO SALOMON, OTR/L
== END 2020-06-18 13:01 | DRG 885 ==
LOC: 3N 15:07
PROVIDERS: Internal Medicine; Registered Nurse; Student in an Organized Health Care Education/Training Program; ADMIT Psychiatry & Neurology Psychiatry; ATTEND Psychiatry & Neurology Psychiatry
DX: F33.2 Major depressive disorder, recurrent severe without psychotic features (principal); N18.30 Chronic kidney disease, stage 3 unspecified; F43.11 Post-traumatic stress disorder, acute; F17.210 Nicotine dependence, cigarettes, uncomplicated; I25.10 Atherosclerotic heart disease of native coronary artery without angina pectoris; K21.9 Gastro-esophageal reflux disease without esophagitis; E11.22 Type 2 diabetes mellitus with diabetic chronic kidney disease; E78.5 Hyperlipidemia, unspecified; I48.0 Paroxysmal atrial fibrillation; Z20.828 Contact with and (suspected) exposure to other viral communicable diseases; I12.9 Hypertensive chronic kidney disease with stage 1 through stage 4 chronic kidney disease, or unspecified chronic kidney disease; M19.90 Unspecified osteoarthritis, unspecified site; G30.9 Alzheimer's disease, unspecified; F02.80 Dementia in other diseases classified elsewhere, unspecified severity, without behavioral disturbance, psychotic disturbance, mood disturbance, and anxiety; F41.9 Anxiety disorder, unspecified; Z86.718 Personal history of other venous thrombosis and embolism; Z88.2 Allergy status to sulfonamides; Z91.041 Radiographic dye allergy status; Z88.8 Allergy status to other drugs, medicaments and biological substances; Z79.899 Other long term (current) drug therapy